=== PATIENT | female | born 2000 | race Caucasian/White ===

== ENCOUNTER 2021-01-09 12:29 | Emergency (ER) | payer OTHER, SELFPAY ==
--- NOTE | ~2021-01-09 | CT_ITS ---
EXAMINATION: CT soft tissue neck wo con DATE: 01/09/2021 14:28 INDICATION: Pharyngitis with difficulty swallowing TECHNIQUE: Computed tomography (CT) of the neck was performed without intravenous contrast. The dose- length product (DLP) was 263.78 mGy-cm. Automated exposure control and iterative reconstruction techn ique were employed. COMPARISON: None FINDINGS: The examination is limited by the absence of intravenous contrast. There is a 3.0 x 2.6 cm area of mixed attenuation in the left tonsillar region which could reflect phlegmon or abscess. There is mass effect on the airway which remains patent. There is an increase in number of nonpathological ly enlarged cervical lymph nodes. The visualized lung apices are clear. The osseous structures are un remarkable. IMPRESSION: 1. 3.0 x 2.6 cm area of mixed attenuation in the left tonsillar region which could reflect phlegmon o r abscess, examination limited by the absence of intravenous contrast. Reviewed, dictated and finalized at location B. IMPRESSION: 1. 3.0 x 2.6 cm area of mixed attenuation in the left tonsillar region which co uld reflect phlegmon or abscess, examination limited by the absence of intraven ous contrast.
[2021-01-09 12:54] VITALS: BP 120/77; PULSE 103; RESP 20; TEMP 38.1; O2SAT 98
--- NOTE | 2021-01-09 14:06 | ED.URI ---
HPI - URI/Sore Throat General Chief Complaint: Upper Respiratory Infection Stated Complaint: absess in throat Time Seen by Provider: 01/09/21 12:56 Source: patient and RN notes reviewed Mode of arrival: ambulatory Limitations: no limitations History of Present Illness HPI Narrative: increasing sore throat x 2 days. Pt is on Tx for pharyngitis. MD elicited complaint: fever, sore throat and nasal congestion Onset (ago): day(s) (2) Consistency: constant Severity: moderate Able to tolerate fluids by mouth: Yes Exacerbating factors: swallowing Relieving factors: nothing Associated symptoms: fever and sore throat Treatments prior to arrival: antibiotics Related Data Home Medications Medication Instructions Recorded Confirmed azithromycin 250 mg PO DAILY 01/09/21 01/09/21 Allergies Allergy/AdvReac Type Severity Reaction Status Date / Time Penicillins Allergy Mild unknown Verified 01/09/21 13:00 Review of Systems Review of Systems: All systems reviewed & are unremarkable except as noted in HPI and below Constitutional: Constitutional: Reports as per HPI and Reports fever(s) Eyes: Eyes: Reports as per HPI and Reports no additional eye complaints ENT: Reports system reviewed and no additional complaints, except as documented, Reports nasal congestion and Reports sore throat Cardiovascular: Cardiovascular: Reports as per HPI and Reports no additional cardiovascular complaints Respiratory: Respiratory: Reports as per HPI and Reports no additional respiratory complaints Gastrointestinal: Gastrointestinal: Reports as per HPI and Reports no additional gastrointestinal complaints Genitourinary: Genitourinary: Reports no additional female genitourinary complaints and Reports as per HPI Musculoskeletal: Musculoskeletal: Reports no additional musculoskeletal complaints and Reports as per HPI Integumentary/Breasts: Skin/Breast: Reports system reviewed and no additional complaints, except as docu and Reports as per HPI Neurologic: Reports system reviewed and no additional complaints, except as documented and Reports as per HPI Psychiatric: Psychiatric: Reports no additional psychiatric complaints and Reports as per HPI Endocrine: Endocrine: Reports no additional endocrine complaints and Reports as per HPI Hematologic/Lymphatic: Hematologic/Lymphatic: Reports no additional hematologic/lymphatic complaints and Reports as per HPI Allergic/Immunologic: Allergic/Immunologic: Reports no additional allergic/immunologic complaints and Reports as per HPI PMFSH Past Medical History Medical History History of psychiatric hospitalization Rash Suicide attempt by overdose Surgical History Surgical History H/O oral surgery by overdose Family History Family History Mother Healthy adult Father Healthy adult Grandparent Lung cancer Social History Social History Smoking packs per day: 0.5 Smoking cigarettes per day: 10.0 Years smoked: 3 Smoking pack-years: 1.50 Smoking status: Current every day smoker Alcohol intake: never Substance use: current Substance use type: marijuana Additional living arrangements comments: with mother Additional occupation/education comments: [employer] Gender identity (if verbalized by the patient): Female Spiritual care concerns: No Exam Const: General: no acute distress and alert Nutritional Appearance: well nourished Orientation/consciousness: patient oriented x3 Limitations: no limitations HENMT: Head: normal to inspection Ears: external ears normal and TM's normal bilaterally General nose exam: Normal external nose present and Normal nares present Face and sinus: normal facial exam Mouth: Yes lip normal and Yes moist mucous membra
[2021-01-09] MEDS: cefTRIAXone 1 GM VIAL IM (14:10)
[2021-01-09] MEDS: KETOROLAC (*BKC) 60 MG/2 ML VIAL IM (14:16)
[2021-01-09] MEDS: LIDOCAINE HCL 1% LOCAL INJ 20 ML VIAL (14:18)
[2021-01-09] MEDS: methylPREDNISolone SOD SUCC 125 MG VIAL IM (15:51)
[2021-01-09 16:31] VITALS: BP 115/65; PULSE 78; RESP 20; TEMP 37.3; O2SAT 99
== END 2021-01-09 16:34 | disposition home or self-care (01) ==
PROVIDERS: Emergency Provider Emergency Medicine
DX: J36 Peritonsillar abscess (principal); F17.200 Nicotine dependence, unspecified, uncomplicated
CPT/HCPCS: 70490; 96372; 99283; 99284; J0696; J1885; J2930

== ENCOUNTER 2022-02-02 03:58 | Emergency (ER) | payer OTHER, SELFPAY ==
--- NOTE | 2022-02-02 04:01 | ED.URI ---
HPI - URI/Sore Throat General Chief Complaint: Nausea/Vomiting/Diarrhea Stated Complaint: NAUSEA Time Seen by Provider: 02/02/22 04:00 Source: patient and RN notes reviewed Mode of arrival: ambulatory Limitations: no limitations History of Present Illness HPI Narrative: patient began yesterday with some upper respiratory symptoms cough nasal congestion. Thought she just had a head cold. Then this evening she began having vomiting. She thinks she may have been exposed to someone with COVID at her job. MD elicited complaint: cough and nasal congestion Onset (ago): day(s) (1) Consistency: intermittent Severity: moderate Description of mucous: clear Able to tolerate fluids by mouth: Yes Exacerbating factors: nothing Relieving factors: nothing Context: sick contacts Associated symptoms: myalgias, headache, nasal congestion, sore throat, cough, nausea and vomiting Treatments prior to arrival: none Related Data Allergies Allergy/AdvReac Type Severity Reaction Status Date / Time Penicillins Allergy Mild unknown Verified 02/05/22 07:03 Review of Systems Review of Systems: All systems reviewed & are unremarkable except as noted in HPI and below PMFSH Past Medical History Medical History History of psychiatric hospitalization Rash Suicide attempt by overdose Surgical History Surgical History H/O oral surgery by overdose Family History Family History Mother Healthy adult Father Healthy adult Grandparent Lung cancer Social History Social History Years smoked: 3 Smoking status: Current every day smoker Tobacco type: e-cigarettes/vaping Alcohol intake: never Substance use: current Substance use type: marijuana Additional living arrangements comments: with mother Additional occupation/education comments: [employer] Gender identity (if verbalized by the patient): Female Spiritual care concerns: No Exam Const: General: healthy appearing, no acute distress and alert Nutritional Appearance: well nourished and thin Orientation/consciousness: patient oriented x3 Limitations: no limitations Other: Female nurse in room during examination. HENMT: Head: normal to inspection Ears: external ears normal Eyes: Conjunctivae: conjunctivae normal Pupils: Equal, round and reactive pupils present EOM: EOMs intact bilaterally Neck: Neck: normal visual inspection Resp: Effort & Inspection: normal respiratory effort Auscultation: clear to auscultation bilaterally Cardio: Rate: regular rate Rhythm: regular rhythm GI: GI Palp: Yes Soft to palpation, No Tenderness to palpation present (GI) and No Guarding due to palpation present (GI) Auscultation: normal bowel sounds Back/Spine/Pelvis: Cervical Spine: cervical ROM normal Thoracic/Lumbar Spine: thoraco-lumbar ROM normal Skin: General skin exam: normal color Rashes: no rashes Neuro: General: patient oriented x3, moves all extremities, no focal motor deficits and CN's II-XI intact bilaterally Speech: normal speech Gait exam (Neuro): Normal gait present Extrem: General: normal to inspection and no clubbing, cyanosis or edema Psych: Mental Status: mental status grossly normal Affect: normal affect Attitude: cooperative Course Vital Signs Vital signs: Vital Signs Temperature 36.8 C 02/02/22 04:08 Pulse Rate 92 02/02/22 04:08 Respiratory Rate 20 02/02/22 04:08 Blood Pressure 127/71 02/02/22 04:08 Pulse Oximetry 100 02/02/22 04:08 Oxygen Delivery Room Air 02/02/22 04:08 Temperature 36.6 C 02/02/22 05:34 Pulse Rate 92 02/02/22 05:34 Respiratory Rate 20 02/02/22 05:34 Blood Pressure 120/66 02/02/22 05:34 Pulse Oximetry 100 02/02/22 05:34 Oxygen Delivery Room Air 02/02/22 05:34 MDM -
[2022-02-02 04:08] VITALS: BP 127/71; PULSE 92; RESP 20; TEMP 36.8; O2SAT 100
[2022-02-02 04:13] LABS: Basophils Absolute Auto 0.03 K/mm3 (0.00-0.10); Basophils Percent Auto 0.3 % (0.0-1.0); Eosinophils Absolute Auto 0.05 K/mm3 (0.02-0.50); Eosinophils Percent Auto 0.5 % (1.0-6.0); Hematocrit 35.8 % (35.0-49.0); Hemoglobin 11.7 g/dL (12.0-15.0); Immature Granulocyte Absolute 0.02 K/mm3 (0.00-0.00); Immature Granulocyte Percent A 0.2 % (0.0-0.0); Lymphocytes Absolute Auto 0.14 K/mm3 (1.10-4.50); Lymphocytes Percent Auto 1.5 % (18.0-42.0); Mean Corpuscular HGB Conc 32.7 g/dL (32.0-36.0); Mean Corpuscular Hemoglobin 27.9 pg (27.0-31.0); Mean Corpuscular Volume 85.2 fL (78.0-102.0); Mean Platelet Volume 9.1 fl (9.2-11.8); Monocytes Percent Auto 5.4 % (2.0-11.0); Neutrophils Absolute Auto 8.5 K/mm3 (1.7-7.2); Neutrophils Percent Auto 92.1 % (50.0-70.0); Platelet Count Result 281 K/mm3 (150-420); Red Cell Distribution Width 13.8 % (11.6-14.4); White Blood Count 9.3 K/mm3 (4.8-10.8)
[2022-02-02] MEDS: ONDANSETRON HCL ODT 4 MG TABLET PO (04:17)
[2022-02-02 04:28] LABS: Alanine Aminotransferase 16 U/L (14-59); Alkaline Phosphatase 67 U/L (46-116); Anion Gap 9 mmol/L (8-16); Aspartate Amino Transferase < 10 U/L (15-37); Bilirubin,Total 0.4 mg/dL (0.00-1.00); Blood Urea Nitrogen 7 mg/dL (7-18); Calcium 8.7 mg/dL (8.5-10.1); Carbon Dioxide 25 mmol/L (21-32); Chloride 105 mmol/L (98-108); Estimated CRCL calculation 91 ml/min; Estimated Glomerular Filt Rate > 60; Glucose 107 mg/dL (70-99); Osmolality Calculated 286 mOsm/kg (285-295); Potassium 3.7 mmol/L (3.5-5.1); Sodium 139 mmol/L (136-145); Total Protein 6.9 g/dL (6.4-8.2)
[2022-02-02 04:29] LABS: CRP < 0.2 mg/dL (0.0-0.9); Magnesium 1.5 mg/dL (1.8-2.4)
[2022-02-02 04:50] LABS: SARS-CoV-2 RNA PCR Negative (Negative)
[2022-02-02 05:05] VITALS: BP 118/70; PULSE 78; RESP 20; O2SAT 98
[2022-02-02 05:34] VITALS: BP 120/66; PULSE 92; RESP 20; TEMP 36.6; O2SAT 100
== END 2022-02-02 05:37 | disposition home or self-care (01) ==
PROVIDERS: Emergency Provider Emergency Medicine; PCP Family Medicine
DX: K52.9 Noninfective gastroenteritis and colitis, unspecified (principal); E83.42 Hypomagnesemia; Z20.822 Contact with and (suspected) exposure to COVID-19
CPT/HCPCS: 36415; 80053; 83735; 85025; 86140; 99283; A9270; C9803; U0003; U0005

== ENCOUNTER 2022-08-01 09:41 | Emergency (ER) | payer OTHER, SELFPAY ==
[2022-08-01 09:43] VITALS: BP 110/56; PULSE 77; RESP 16; TEMP 37.2; O2SAT 100
[2022-08-01 10:26] LABS: Basophils Absolute Auto 0.05 K/mm3 (0.00-0.10); Basophils Percent Auto 0.3 % (0.0-1.0); Eosinophils Absolute Auto 0.02 K/mm3 (0.02-0.50); Eosinophils Percent Auto 0.1 % (1.0-6.0); Hematocrit 37.8 % (35.0-49.0); Hemoglobin 12.5 g/dL (12.0-15.0); Immature Granulocyte Absolute 0.05 K/mm3 (0.00-0.00); Immature Granulocyte Percent A 0.3 % (0.0-0.0); Lymphocytes Absolute Auto 0.58 K/mm3 (1.10-4.50); Lymphocytes Percent Auto 3.9 % (18.0-42.0); Mean Corpuscular HGB Conc 33.1 g/dL (32.0-36.0); Mean Corpuscular Hemoglobin 28.5 pg (27.0-31.0); Mean Corpuscular Volume 86.3 fL (78.0-102.0); Monocytes Absolute Auto 1.03 K/mm3 (0.10-0.90); Monocytes Percent Auto 6.9 % (2.0-11.0); Neutrophils Absolute Auto 13.2 K/mm3 (1.7-7.2); Neutrophils Percent Auto 88.5 % (50.0-70.0); Platelet Count Result 298 K/mm3 (150-420); Red Blood Count 4.38 M/mm3 (4.20-5.40); Red Cell Distribution Width 13.4 % (11.6-14.4); White Blood Count 14.9 K/mm3 (4.8-10.8)
[2022-08-01 10:42] LABS: Alanine Aminotransferase 16 U/L (14-59); Albumin Level 3.9 g/dL (3.4-5.0); Alkaline Phosphatase 75 U/L (46-116); Anion Gap 10 mmol/L (8-16); Aspartate Amino Transferase < 10 U/L (15-37); Bilirubin,Total 0.6 mg/dL (0.00-1.00); Blood Urea Nitrogen 4 mg/dL (7-18); Carbon Dioxide 26 mmol/L (21-32); Chloride 101 mmol/L (98-108); Estimated Glomerular Filt Rate > 60; Glucose 96 mg/dL (70-99); Osmolality Calculated 280 mOsm/kg (285-295); Sodium 137 mmol/L (136-145); Total Protein 7.4 g/dL (6.4-8.2)
[2022-08-01] MEDS: ONDANSETRON INJ 4 MG/2 ML VIAL IV PUSH (10:56)
[2022-08-01] MEDS: SODIUM CHLORIDE 0.9% IV 1,000 ML 999 ML IV CONT (10:58)
--- NOTE | 2022-08-01 12:14 | PC.NURSE ---
patient ambulatory to bathroom at this time.
[2022-08-01 12:23] LABS: Add Urine Microscopic? YES; Appearance Urine Clear (Clear); Bilirubin Urine Negative (Negative); Blood Urine Negative (Negative); Color Urine Light Yellow (Yellow); Glucose Urine UA Negative (Negative); Ketones Urine 3+ (Negative); Leukocyte Esterase Ur 1+ LEU/UL (Negative); Nitrate Urine Negative (Negative); Protein Urine Negative (Negative); Specific Grav Ur 1.025 (1.010-1.020); Urobilinogen Urine 0.2 mg/dL (0.2-1.0); pH Urine 5.5 (5.0-8.0)
[2022-08-01 12:30] LABS: Bacteria Urine Trace /hpf; Mucus Urine Few /lpf; RBC Urine None seen /hpf (0-2); Squamous Epithelial Cell Urine Moderate /hpf (Few)
--- NOTE | 2022-08-01 12:43 | ED.NAVMDI ---
HPI - Nausea/Vomiting/Diarrhea General Chief complaint: Nausea/Vomiting/Diarrhea Stated complaint: vomiting, 8wks preg Time Seen by Provider: 08/01/22 09:42 Source: patient and family Mode of arrival: ambulatory Limitations: no limitations History of Present Illness HPI Narrative: patient presents with nausea vomiting and a few episodes of diarrhea with no fever chills no flank pain no chest pain no shortness of breaths for the past 2 days patient is 8 weeks and there is no dysuria no hematuria no fever chills. MD elicited complaint: nausea and vomiting Pain consistency: intermittent Severity: mild Related Data Allergies Allergy/AdvReac Type Severity Reaction Status Date / Time No Known Allergies Allergy Verified 08/01/22 09:47 Review of Systems Review of Systems: All systems reviewed & are unremarkable except as noted in HPI and below PMFSH Past Medical History Medical History History of psychiatric hospitalization Rash Suicide attempt by overdose Surgical History Surgical History H/O oral surgery by overdose Family History Family History Mother Healthy adult Father Healthy adult Grandparent Lung cancer Social History Social History Years smoked: 3 Smoking status: Current every day smoker Tobacco type: e-cigarettes/vaping Alcohol intake: never Substance use: current Substance use type: marijuana Living arrangements: with family Additional living arrangements comments: with mother Occupation/Education: occupation Additional occupation/education comments: [employer] Gender identity (if verbalized by the patient): Female Spiritual care concerns: No Exam Const: General: healthy appearing Nutritional Appearance: well nourished Orientation/consciousness: patient oriented x3 Limitations: no limitations HENMT: Head: normal to inspection Ears: external ears normal Face/Nose/Sinus: Normal external nose present Mouth: Yes Normal oral and palatal mucosa present Eyes: Conjunctivae: conjunctivae normal Pupils: Equal, round and reactive pupils present EOM: EOMs intact bilaterally Neck: Neck: normal visual inspection Chest: Chest palpation & inspection: normal inspection of the chest Resp: Effort & Inspection: normal respiratory effort Cardio: Rate: regular rate Rhythm: regular rhythm GI: GI Palp: Yes Soft to palpation : General: Yes bladder normal to palpation External Female Exam: normal external appearance Urinary Catheter: Urinary Catheter: patent and draining Skin: General skin exam: normal color Rashes: no rashes Wounds: no wounds Neuro: General: patient oriented x3 Cranial nerves: Yes Nystagmus not present Speech: normal speech Extrem: General: normal to inspection Psych: Mental Status: mental status grossly normal Affect: normal affect Course Course Emergency Course: Patient's symptoms have improved with IV fluids and Zofran, [place] [id number] and she has a positive urinary tract analysis of her UTI. Vital Signs Vital signs: Vital Signs Temperature 37.2 C 08/01/22 09:43 Pulse Rate 77 08/01/22 09:43 Respiratory Rate 16 08/01/22 09:43 Blood Pressure 110/56 L 08/01/22 09:43 Pulse Oximetry 100 08/01/22 09:43 Oxygen Delivery Room Air 08/01/22 09:43 Temperature 37.2 C 08/01/22 09:43 Pulse Rate 77 08/01/22 09:43 Respiratory Rate 16 08/01/22 09:43 Blood Pressure 110/56 L 08/01/22 09:43 Pulse Oximetry 100 08/01/22 09:43 Oxygen Delivery Room Air 08/01/22 09:43 MDM - Nausea/Vomiting/Diarrhea Lab Data 08/01/22 10:21 08/01/22 10:21 Labs: Lab Results 08/01/22 08/01/22 08/01/22 Range/Units 10:21 10:21 12:15
--- NOTE | 2022-08-01 12:59 | PC.NURSE ---
Per dr. sevilla prescription is to be for 7 days not 10 days for the amoxicillin. Rn called to pharmacy and prescription of amoxicillin 500mg 1 tablet po TID x7 days #21 0 refill called in and other script canceled. left on voicemail pharmacy is closed for lunch.
[2022-08-01 13:08] VITALS: BP 105/67; PULSE 82; RESP 16; TEMP 36.8; O2SAT 100
--- NOTE | 2022-08-03 12:47 | PC.NURSE ---
final urine culture report reviewed. no growth . no change in pt plan of care.
== END 2022-08-01 13:12 | disposition home or self-care (01) ==
PROVIDERS: Emergency Provider Emergency Medicine; PCP Family Medicine
DX: O23.11 Infections of bladder in pregnancy, first trimester (principal); N30.00 Acute cystitis without hematuria; O99.331 Smoking (tobacco) complicating pregnancy, first trimester; F17.290 Nicotine dependence, other tobacco product, uncomplicated; Z3A.08 8 weeks gestation of pregnancy
CPT/HCPCS: 36415; 80053; 81001; 85025; 87086; 96361; 96374; 99284; J2405; J7030

== ENCOUNTER 2022-08-20 04:10 | Emergency (ER) | payer OTHER, SELFPAY ==
[2022-08-20 04:18] VITALS: BP 117/71; PULSE 90; RESP 20; TEMP 37.1; O2SAT 99
[2022-08-20] MEDS: SODIUM CHLORIDE 0.9% IV 1,000 ML 999 ML IV CONT (04:30)
--- NOTE | 2022-08-20 04:32 | ED.GENADULT ---
HPI - General Adult General Chief complaint: Nausea/Vomiting/Diarrhea Stated complaint: Vomiting History of Present Illness HPI narrative: The patient is a 22-year-old woman who is otherwise healthy who is currently , at 11 weeks. For the last 1-2 days, the patient has had persistent nausea and vomiting consistent with morning sickness. She had approximately 15 episodes of emesis in the last 24 hours. She took her last Zofran tablet recently and has run out of those medications. No abdominal pain or cramps. No vaginal discharge. No urinary symptoms such as dysuria urgency or frequency or hematuria. No URI symptoms such as cough rhinorrhea nasal congestion or sore throat. Feels her mouth is dry. No sick contacts. No fevers or chills or diaphoresis. Related Data Allergies Allergy/AdvReac Type Severity Reaction Status Date / Time No Known Allergies Allergy Verified 08/01/22 09:47 Review of Systems Review of Systems: All systems reviewed & are unremarkable except as noted in HPI and below Constitutional: Constitutional: Reports as per HPI, Reports no additional constitutional complaints, Denies chills, Denies excessive sweating, Denies fatigue, Denies fever(s), Denies headache(s) and Reports weakness ( Generalized) Eyes: Eyes: Reports as per HPI, Reports no additional eye complaints, Denies change in vision and Denies photophobia ENT: Reports system reviewed and no additional complaints, except as documented, Reports as per HPI, Denies dysphagia, Denies vertigo, Denies dizziness, Denies headache(s), Denies lip swelling, Denies nasal congestion, Denies sore throat, Denies throat swelling and Denies tongue swelling Cardiovascular: Cardiovascular: Reports as per HPI, Reports no additional cardiovascular complaints, Denies chest pain, Denies syncope, Denies rapid heart rate and Denies dyspnea Respiratory: Respiratory: Reports as per HPI, Reports no additional respiratory complaints, Denies chest congestion, Denies cough, Denies dyspnea and Denies wheezing Gastrointestinal: Gastrointestinal: Reports as per HPI, Reports no additional gastrointestinal complaints, Denies abdominal pain, Denies constipation, Denies dysphagia, Denies diarrhea, Reports nausea and Reports vomiting Genitourinary: Genitourinary: Reports as per HPI, Denies hematuria, Denies urinary frequency, Denies dysuria, Denies urinary incontinence and Denies urinary urgency Musculoskeletal: Musculoskeletal: Reports no additional musculoskeletal complaints, Denies back pain, Denies myalgias, Denies arthralgias, Denies joint swelling and Denies numbness Integumentary/Breasts: Skin/Breast: Reports system reviewed and no additional complaints, except as docu, Denies pruritus, Denies erythema, Denies rash and Denies skin ulcer Neurologic: Reports system reviewed and no additional complaints, except as documented, Reports as per HPI, Denies confusion, Denies vertigo, Denies dizziness, Denies syncope, Denies headache(s), Denies focal weakness, Denies numbness and Reports weakness ( generalized weakness, no focal weakness) Psychiatric: Psychiatric: Reports as per HPI, Denies anxiety, Denies confusion, Denies depression, Denies homicidal ideation and Denies suicidal ideation Endocrine: Endocrine: Reports no additional endocrine complaints, Denies excessive sweating, Denies fatigue, Denies polydipsia and Denies polyuria Hematologic/Lymphatic: Hematologic/Lymphatic: Reports no additional hematologic/lymphatic complaints, Denies easy bleeding and Denies easy bruising Allergic/Immunologic: Allergic/Immunologic: Reports no additional allergic/immunologic complaints, Denies lip swelling, Denies throat swelling, Denies tongue swelling and Denies wheezing [facility] Past Medical History Medical History History of psychiatric hospitalization Rash Suicide attempt by overdose Surgical History Surgical History (Reviewed 08/28/22 @ 20:
[2022-08-20] MEDS: ONDANSETRON INJ 4 MG/2 ML VIAL IV PUSH (04:35)
--- NOTE | 2022-08-20 04:35 | PC.NURSE ---
Per protocol, Pt offered HIV blood draw and info given. Pt declined due to seeing her [employer] Dr and having done in her office. Paperwork signed on decline.
[2022-08-20 05:15] VITALS: BP 105/61; PULSE 87; RESP 18; TEMP 36.8; O2SAT 100
== END 2022-08-20 05:20 | disposition home or self-care (01) ==
PROVIDERS: Emergency Provider Emergency Medicine; PCP Family Medicine
DX: O21.0 Mild hyperemesis gravidarum (principal); O99.331 Smoking (tobacco) complicating pregnancy, first trimester; F17.290 Nicotine dependence, other tobacco product, uncomplicated; Z3A.11 11 weeks gestation of pregnancy
CPT/HCPCS: 96361; 96374; 99284; J2405; J7030

== ENCOUNTER 2022-08-28 19:47 | Emergency (ER) | payer OTHER, SELFPAY ==
[2022-08-28 19:54] VITALS: BP 122/76; PULSE 82; RESP 20; TEMP 36.7; O2SAT 99
--- NOTE | 2022-08-28 20:14 | ED.NAVMDI ---
HPI - Nausea/Vomiting/Diarrhea General Chief complaint: Nausea/Vomiting/Diarrhea Stated complaint: 12 weeks been sick vomiting Source: patient Mode of arrival: ambulatory History of Present Illness HPI Narrative: 22-year-old female primigravida, normal intrauterine gestation on ultrasound, 12 weeks with a history of hyperemesis gravidarum presents to the ER with -- multiple episodes of nausea and vomiting. She has had close to 20 episodes of vomiting today. No vomiting or diarrhea. The patient was seen in the ER 1 week ago. The patient is on Zofran. -- Normal urine output. MD elicited complaint: nausea and vomiting Onset (ago): day(s) Description of vomiting: watery and bilious Associated nausea: Yes Associated abdominal pain: No Location of pain: none Related Data Allergies Allergy/AdvReac Type Severity Reaction Status Date / Time No Known Allergies Allergy Verified 08/01/22 09:47 Review of Systems Review of Systems: All systems reviewed & are unremarkable except as noted in HPI and below Constitutional: Constitutional: Reports as per HPI and Reports no additional constitutional complaints Eyes: Eyes: Reports as per HPI and Reports no additional eye complaints ENT: Reports system reviewed and no additional complaints, except as documented and Reports as per HPI Cardiovascular: Cardiovascular: Reports as per HPI and Reports no additional cardiovascular complaints Respiratory: Respiratory: Reports as per HPI and Reports no additional respiratory complaints Gastrointestinal: Gastrointestinal: Reports as per HPI, Reports no additional gastrointestinal complaints, Reports nausea and Reports vomiting Genitourinary: Genitourinary: Reports no additional female genitourinary complaints and Reports as per HPI Comments: No vaginal discharge. Musculoskeletal: Musculoskeletal: Reports no additional musculoskeletal complaints and Reports as per HPI Integumentary/Breasts: Skin/Breast: Reports system reviewed and no additional complaints, except as docu and Reports as per HPI Neurologic: Reports system reviewed and no additional complaints, except as documented and Reports as per HPI Psychiatric: Psychiatric: Reports no additional psychiatric complaints and Reports as per HPI Endocrine: Endocrine: Reports no additional endocrine complaints and Reports as per HPI Hematologic/Lymphatic: Hematologic/Lymphatic: Reports no additional hematologic/lymphatic complaints and Reports as per HPI Allergic/Immunologic: Allergic/Immunologic: Reports no additional allergic/immunologic complaints and Reports as per HPI PMF Past Medical History Medical History History of psychiatric hospitalization Rash Suicide attempt by overdose Surgical History Surgical History H/O oral surgery by overdose Family History Family History Mother Healthy adult Father Healthy adult Grandparent Lung cancer Social History Social History Years smoked: 3 Smoking status: Current every day smoker Tobacco type: e-cigarettes/vaping Alcohol intake: never Substance use: current Substance use type: marijuana Living arrangements: with family Additional living arrangements comments: with mother Occupation/Education: occupation Additional occupation/education comments: [employer] Gender identity (if verbalized by the patient): Female Spiritual care concerns: No Exam Const: General: no acute distress Orientation/consciousness: patient oriented x3 Limitations: no limitations HENMT: Head: normal to inspection Ears: external ears normal Face/Nose/Sinus: Normal external nose present Face and sinus: normal facial exam Mouth: Yes Normal oral and palatal mucosa present Throat: posterior
[2022-08-28] MEDS: LACTATED RINGERS 1,000 ML 999 ML IV CONT (20:23)
[2022-08-28 20:24] LABS: Basophils Absolute Auto 0.06 K/mm3 (0.00-0.10); Basophils Percent Auto 0.4 % (0.0-1.0); Eosinophils Absolute Auto 0.03 K/mm3 (0.02-0.50); Eosinophils Percent Auto 0.2 % (1.0-6.0); Hematocrit 35.6 % (35.0-49.0); Hemoglobin 12.3 g/dL (12.0-15.0); Immature Granulocyte Absolute 0.09 K/mm3 (0.00-0.00); Immature Granulocyte Percent A 0.5 % (0.0-0.0); Lymphocytes Absolute Auto 1.61 K/mm3 (1.10-4.50); Lymphocytes Percent Auto 9.8 % (18.0-42.0); Mean Corpuscular HGB Conc 34.6 g/dL (32.0-36.0); Mean Corpuscular Hemoglobin 29.6 pg (27.0-31.0); Mean Corpuscular Volume 85.6 fL (78.0-102.0); Mean Platelet Volume 9.3 fl (9.2-11.8); Monocytes Percent Auto 6.1 % (2.0-11.0); Neutrophils Absolute Auto 13.7 K/mm3 (1.7-7.2); Platelet Count Result 310 K/mm3 (150-420); Red Blood Count 4.16 M/mm3 (4.20-5.40); Red Cell Distribution Width 13.7 % (11.6-14.4); White Blood Count 16.5 K/mm3 (4.8-10.8)
[2022-08-28 20:26] LABS: Appearance Urine Clear (Clear); Bilirubin Urine Negative (Negative); Blood Urine Negative (Negative); Color Urine Light Yellow (Yellow); Glucose Urine UA Negative (Negative); Ketones Urine 3+ (Negative); Leukocyte Esterase Ur Trace LEU/UL (Negative); Nitrate Urine Negative (Negative); Protein Urine Negative (Negative); Specific Grav Ur 1.025 (1.010-1.020); Urobilinogen Urine 0.2 mg/dL (0.2-1.0)
[2022-08-28 20:32] LABS: Add Urine Microscopic? YES; Amorphous Sediment Urine Few; Bacteria Urine Trace /hpf; RBC Urine 0-2 /hpf (0-2); Squamous Epithelial Cell Urine Moderate /hpf (Few); WBC Urine 0-3 /hpf (0-3)
[2022-08-28 21:03] LABS: Alanine Aminotransferase 25 U/L (14-59); Albumin Level 3.4 g/dL (3.4-5.0); Alkaline Phosphatase 60 U/L (46-116); Anion Gap 10 mmol/L (8-16); Aspartate Amino Transferase 19 U/L (15-37); Bilirubin,Total 0.5 mg/dL (0.00-1.00); Blood Urea Nitrogen 4 mg/dL (7-18); Calcium 8.8 mg/dL (8.5-10.1); Carbon Dioxide 24 mmol/L (21-32); Chloride 101 mmol/L (98-108); Estimated CRCL calculation 129 ml/min; Estimated Glomerular Filt Rate > 60; Glucose 97 mg/dL (70-99); Osmolality Calculated 276 mOsm/kg (285-295); Potassium 3.7 mmol/L (3.5-5.1); Sodium 135 mmol/L (136-145)
[2022-08-28 21:04] LABS: Thyroid Stimulating Hormone 0.76 uIU/mL (0.36-3.74)
[2022-08-28 21:05] LABS: Lipase 22 U/L (16-77); Magnesium 1.6 mg/dL (1.8-2.4); Phosphorus 3.8 mg/dL (3.4-5.5)
--- NOTE | 2022-08-28 21:10 | PC.NURSE ---
pt refused HIV screening. Pt signed refusal form. refusal form placed with chart.
[2022-08-28] MEDS: MAGNESIUM SULF 2 GM/WATER 50ML 2 GM/50 ML BAG IVPB (21:17)
[2022-08-28 21:25] VITALS: BP 115/88; PULSE 77; RESP 18; TEMP 36.8; O2SAT 100
== END 2022-08-28 21:36 | disposition home or self-care (01) ==
PROVIDERS: Emergency Provider Internal Medicine Critical Care Medicine; PCP Family Medicine
DX: O21.0 Mild hyperemesis gravidarum (principal); O26.891 Other specified pregnancy related conditions, first trimester; E83.42 Hypomagnesemia; O99.331 Smoking (tobacco) complicating pregnancy, first trimester; F17.290 Nicotine dependence, other tobacco product, uncomplicated; Z3A.12 12 weeks gestation of pregnancy
CPT/HCPCS: 36415; 80053; 81001; 83690; 83735; 84100; 84443; 84702; 85025; 96361; 96365; 99284; J3475; J7120

== ENCOUNTER 2022-10-26 16:16 | Emergency (ER) | payer OTHER, SELFPAY ==
[2022-10-26] VITALS (7 sets, daily range): BP systolic 125–131; BP diastolic 71–83; PULSE 72–112; RESP 16–18; TEMP 36.4–36.8; O2SAT 93–100
--- NOTE | ~2022-10-26 | XR_ITS ---
EXAMINATION: XR chest 1V portable DATE: 10/26/2022 17:00 INDICATION: Right lung wheezing. Cough. Vomiting. TECHNIQUE: A single frontal view of the chest was obtained. COMPARISON: None. FINDINGS: The chest demonstrates clear lungs without pneumonia, pleural effusion, or pneumothorax. Th e heart size is normal. IMPRESSION: 1. No acute cardiopulmonary disease. Reviewed, dictated and finalized at location E.
--- NOTE | 2022-10-26 16:43 | ED.GENADULT ---
HPI - General Adult General Chief complaint: Nausea/Vomiting/Diarrhea Stated complaint: cough/congestion/vomiting 21 wks History of Present Illness HPI narrative: This is a 22-year-old female presenting ED with chief complaint of nausea and vomiting x1 days. Over last 24 hours patient has developed nasal congestion, sore throat cough, and nausea and vomiting. She has been taking Zofran ODT with no relief. She denies fever chills chest pain or difficulty breathing. Patient's fiance has similar symptoms. Patient has had significant issues with vomiting during this although it is improved in the 2nd trimester. Patient denies abdominal pain, vaginal bleeding or discharge. She has not felt the baby move yet but has an anterior placenta. Related Data Allergies Allergy/AdvReac Type Severity Reaction Status Date / Time No Known Allergies Allergy Verified 10/26/22 16:31 [facility] Past Medical History Medical History History of psychiatric hospitalization Rash Suicide attempt by overdose Surgical History Surgical History H/O oral surgery by overdose Family History Family History Mother Healthy adult Father Healthy adult Grandparent Lung cancer Social History Social History Years smoked: 3 Smoking status: Current every day smoker Tobacco type: e-cigarettes/vaping Alcohol intake: never Substance use: current Substance use type: marijuana Living arrangements: with family Additional living arrangements comments: with mother Occupation/Education: occupation Additional occupation/education comments: [employer] Gender identity (if verbalized by the patient): Female Spiritual care concerns: No Exam Narrative: APPEARANCE: No apparent distress. Patient is persistently coughing Head: posterior oropharynx is erythematous with exudates EYES: EOMI, NOSE: Atraumatic NECK: Trachea midline RESPIRATORY: No increased rate of breathing, wheezing on the right lung CARDIOVASCULAR: tachycardic ABDOMINAL: gravid uterus palpable at the umbilicus, soft nontender no guarding rebound MUSCULOSKELETAl: No obvious deformities NEURO: Alert. Moving 4/4 extremities SKIN:: Warm, dry. Normal color PSYCHIATRIC: Normal affect Course Vital Signs Vital signs: Vital Signs Temperature 97.5 F L 10/26/22 16:16 Pulse Rate 112 H 10/26/22 16:16 Respiratory Rate 18 10/26/22 16:16 Blood Pressure 128/71 10/26/22 16:16 Pulse Oximetry 96 10/26/22 16:16 Oxygen Delivery Room Air 10/26/22 16:16 Temperature 97.5 F L 10/26/22 16:16 Pulse Rate 112 H 10/26/22 16:16 Respiratory Rate 18 10/26/22 16:16 Blood Pressure 128/71 10/26/22 16:16 Pulse Oximetry 96 10/26/22 16:16 Oxygen Delivery Room Air 10/26/22 16:16 Medical Decision Making MDM Narrative Medical decision making narrative: -Presentation: 22-year-old female presenting with cold symptoms, nausea vomiting and wheezing. Patient will be given IV fluids, Zofran, Tylenol and a breathing treatment. 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 Viral swabs and strep throat were negative. Dx tests considered but not ordered: -Procedures: -Interventions: DuoNeb nebulizer, Tylenol Zofran, 2 L normal saline -> 10 m
[2022-10-26] MEDS: IPRATROPIUM 0.5 MG/ALBUTEROL SULFATE 2.5 MG AMPUL.NEB 3 ML INHALATION (16:55)
[2022-10-26] MEDS: ONDANSETRON INJ 4 MG/2 ML VIAL 8 MG IV PUSH (17:00)
[2022-10-26] MEDS: SODIUM CHLORIDE 0.9% IV 2,000 ML 999 ML IV CONT (17:00)
[2022-10-26] MEDS: ACETAMINOPHEN 325 MG TABLET 650 MG PO (17:03)
[2022-10-26 17:46] LABS: Strep Group A RT-PCR NOT DETECTED (Negative)
[2022-10-26 17:54] LABS: Influenza A QL RT-PCR Negative (Negative); Influenza B QL RT-PCR Negative (Negative); RSV RNA, RT-PCR Negative (Negative); SARS-CoV-2 RNA PCR Negative (Negative)
[2022-10-26] MEDS: METOCLOPRAMIDE HCL INJ 10 MG/2 ML VIAL IV PUSH (18:43)
== END 2022-10-26 18:57 | disposition home or self-care (01) ==
PROVIDERS: Emergency Provider Emergency Medicine; PCP Family Medicine
DX: O99.512 Diseases of the respiratory system complicating pregnancy, second trimester (principal); B34.9 Viral infection, unspecified; J40 Bronchitis, not specified as acute or chronic; O26.892 Other specified pregnancy related conditions, second trimester; R11.2 Nausea with vomiting, unspecified; O99.332 Smoking (tobacco) complicating pregnancy, second trimester; F17.290 Nicotine dependence, other tobacco product, uncomplicated; Z3A.21 21 weeks gestation of pregnancy; Z20.822 Contact with and (suspected) exposure to COVID-19
CPT/HCPCS: 71045; 87637; 87651; 96361; 96374; 96375; 99284; A9270; J1100; J2405; J2765; J7030

== ENCOUNTER 2022-12-25 20:25 | Emergency (ER) | payer OTHER, SELFPAY ==
[2022-12-25 20:29] VITALS: BP 120/76; PULSE 88; RESP 16; TEMP 37.7; O2SAT 99
--- NOTE | 2022-12-25 20:32 | ED.DENTAL ---
HPI - Dental/Oral General Chief complaint: Dental/Oral Stated complaint: tooth ache Time Seen by Provider: 12/25/22 20:32 Source: patient Mode of arrival: ambulatory Limitations: no limitations History of Present Illness HPI Narrative: 22-year-old female, 30 weeks presents to the ER with left upper jaw pain. her pain is chronic but has gotten worse over the past 1 week. No fever or chills. MD Complaint: tooth pain Location: Tooth # (12) Onset (ago): unknown ( Extensive dental caries.) Duration: constant Severity: moderate Relieving factors: nothing Exacerbating factors: nothing Context: history of dental caries Treatment prior to arrival: none Related Data Allergies Allergy/AdvReac Type Severity Reaction Status Date / Time No Known Allergies Allergy Verified 12/25/22 20:27 Review of Systems Review of Systems: All systems reviewed & are unremarkable except as noted in HPI and below Constitutional: Constitutional: Reports as per HPI and Reports no additional constitutional complaints Eyes: Eyes: Reports as per HPI and Reports no additional eye complaints ENT: Reports system reviewed and no additional complaints, except as documented and Reports as per HPI Cardiovascular: Cardiovascular: Reports as per HPI and Reports no additional cardiovascular complaints Respiratory: Respiratory: Reports as per HPI and Reports no additional respiratory complaints Gastrointestinal: Gastrointestinal: Reports as per HPI and Reports no additional gastrointestinal complaints Genitourinary: Genitourinary: Reports no additional female genitourinary complaints and Reports as per HPI Comments: Thirty weeks . Her ultrasounds of the uterus the fetus have been unremarkable to date Musculoskeletal: Musculoskeletal: Reports no additional musculoskeletal complaints and Reports as per HPI Integumentary/Breasts: Skin/Breast: Reports system reviewed and no additional complaints, except as docu and Reports as per HPI Neurologic: Reports system reviewed and no additional complaints, except as documented and Reports as per HPI Psychiatric: Psychiatric: Reports no additional psychiatric complaints and Reports as per HPI Endocrine: Endocrine: Reports no additional endocrine complaints and Reports as per HPI Hematologic/Lymphatic: Hematologic/Lymphatic: Reports no additional hematologic/lymphatic complaints and Reports as per HPI Allergic/Immunologic: Allergic/Immunologic: Reports no additional allergic/immunologic complaints and Reports as per HPI PMFSH Past Medical History Medical History History of psychiatric hospitalization Rash Suicide attempt by overdose Surgical History Surgical History H/O oral surgery by overdose Family History Family History Mother Healthy adult Father Healthy adult Grandparent Lung cancer Social History Social History Years smoked: 3 Smoking status: Current every day smoker Tobacco type: e-cigarettes/vaping Alcohol intake: never Substance use: current Substance use type: marijuana Living arrangements: with family Additional living arrangements comments: with mother Occupation/Education: occupation Additional occupation/education comments: [employer] Gender identity (if verbalized by the patient): Female Spiritual care concerns: No Exam Const: General: no acute distress Nutritional Appearance: well nourished Orientation/consciousness: patient oriented x3 Limitations: no limitations HENMT: Head: normal to inspection Ears: external ears normal Face/Nose/Sinus: Normal external nose present Face and sinus: normal facial exam Mouth: Yes Normal oral and palatal mucosa present and Yes Abnormal oral and palatal mucosa present (
[2022-12-25] MEDS: AMOXICILLIN 500 MG CAPSULE PO (21:26)
[2022-12-25] MEDS: HYDROcodone/acetaminophen (*CRX) 5-325 MG TABLET 1 TAB PO (21:27)
== END 2022-12-25 21:05 | disposition home or self-care (01) ==
PROVIDERS: Emergency Provider Internal Medicine Critical Care Medicine; PCP Family Medicine
DX: O26.893 Other specified pregnancy related conditions, third trimester (principal); K02.9 Dental caries, unspecified; K08.89 Other specified disorders of teeth and supporting structures; O99.333 Smoking (tobacco) complicating pregnancy, third trimester; F17.290 Nicotine dependence, other tobacco product, uncomplicated; Z3A.30 30 weeks gestation of pregnancy
CPT/HCPCS: 99283; A9270

== ENCOUNTER 2023-02-28 01:38 | Inpatient (IN) | payer OTHER, SELFPAY ==
[2023-02-28] VITALS (231 sets, daily range): BP systolic 111–171; BP diastolic 62–147; PULSE 64–163; RESP 16–18; TEMP 36.5–37.5; O2SAT 93–100; BMI 30.2
--- NOTE | 2023-02-28 03:39 | LDADM ---
This patient, Marita Shell, was admitted to Labor/Delivery/Recovery [facility] on 02/28/23 at 01:38. Plans for labor, pain management and were discussed with patient. Patient/family oriented to hospital policies and general routines including ID bracelet, bed and alarms, visiting hours, pain management, procedures, bathroom and other care routines, personal items, smoking policy, room service/diet and guest tray routines, infant security routines, and visiting hours. Patient/Family are encouraged to report perceived risks to care and to ask questions if they do not understand what they are told or what they should do. See OBIX for further documentation.
[2023-02-28] MEDS: LACTATED RINGERS 1,000 ML 125 ML IV CONT ×3 (03:40→12:31)
[2023-02-28 03:47] LABS: Basophils Absolute Auto 0.1 K/mm3 (0.0-0.1); Basophils Percent Auto 0.5 % (0.2-1.2); Eosinophils Absolute Auto 0.1 K/mm3 (0-0.3); Eosinophils Percent Auto 0.5 % (0-4.4); Hematocrit 34.7 % (37.0-47.0); Hemoglobin 11.5 g/dL (12.0-15.0); Immature Granulocyte Absolute 0.13 K/mm3 (0.00-0.031); Immature Granulocyte Percent A 0.8 % (0-0.5); Lymphocytes Absolute Auto 2.07 K/mm3 (0.9-3.2); Lymphocytes Percent Auto 12.6 % (18.3-44.2); Mean Corpuscular HGB Conc 33.1 g/dl (32-36); Mean Corpuscular Hemoglobin 27.6 pg (26-34); Mean Corpuscular Volume 83.4 fl (80-100); Mean Platelet Volume 10.8 fl (7.4-10.4); Monocytes Absolute Auto 1.2 K/mm3 (0.1-0.6); Monocytes Percent Auto 7.4 % (2.6-8.5); Neutrophils Absolute Auto 12.8 K/mm3 (1.3-6.7); Neutrophils Percent Auto 78.2 % (45.5-73.1); Platelet Count Result 309 k/mm3 (150-375); Red Blood Count 4.16 M/mm3 (4.2-5.4); Red Cell Distribution Width 16.1 % (11.5-14.5); White Blood Count 16.4 K/mm3 (4.5-10.0)
--- NOTE | 2023-02-28 05:17 | WPDANESEPP ---
Anes - Eval Pre Procedure Procedure: labor epidural Date/Time: 02/28/23 05:17 Surgeon: leandro Preop Diagnosis: pain during labor Pre Op Diagnosis: Contractions Patient Data Age: 23 Gender: F Height: 1.57 m Weight: 75 kg Last Vital Signs Temp 37.2 C 02/28/23 04:46 Pulse 93 02/28/23 05:16 BP 126/81 02/28/23 05:16 Pulse Ox 100 02/28/23 05:14 O2 Del Method Room Air 02/28/23 03:37 Allergies Allergy/AdvReac Type Severity Reaction Status Date / Time Penicillins Allergy Unknown Verified 02/10/23 12:32 Home Medications Medication Instructions Recorded Confirmed Type ondansetron 4 mg disintegrating 4 mg PO Q6H PRN nausea and 08/20/22 02/28/23 Rx tablet vomiting #30 tabs vit#24-iron amino acid 1 tablet PO DAILY 02/10/23 02/28/23 History chelat-folic acid 30 mg-975 mcg tablet Laboratory Tests 02/28/23 03:42 WBC 16.4 H K/mm3 (4.5-10.0) RBC 4.16 L M/mm3 (4.2-5.4) Hgb 11.5 L g/dL (12.0-15.0) Hct 34.7 L % (37.0-47.0) MCV 83.4 fl (80-100) MCH 27.6 pg (26-34) MCHC 33.1 g/dl (32-36) RDW 16.1 H % (11.5-14.5) Plt Count 309 k/mm3 (150-375) MPV 10.8 H fl (7.4-10.4) Immature Gran % (Auto) 0.8 H % (0-0.5) Neut % (Auto) 78.2 H % (45.5-73.1) Lymph % (Auto) 12.6 L % (18.3-44.2) Carlton % (Auto) 7.4 % (2.6-8.5) Eos % (Auto) 0.5 % (0-4.4) Baso % (Auto) 0.5 % (0.2-1.2) Lymph # (Auto) 2.07 K/mm3 (0.9-3.2) Carlton # (Auto) 1.2 H K/mm3 (0.1-0.6) Eos # (Auto) 0.1 K/mm3 (0-0.3) Baso # (Auto) 0.1 K/mm3 (0.0-0.1) Abs Immat Gran (auto) 0.13 H K/mm3 (0.00-0.031) Absolute Neuts (auto) 12.8 H K/mm3 (1.3-6.7) Absolute Nucleated RBC 0.0 K/mm3 (0.0-0.012) Nucleated RBC % 0.0 % (0.0-0.2) RPR Pending Blood Type O Positive Antibody Screen Negative Patient hx anesthesia problems: none Family hx anesthesia problems: none Results Review: All pre-operative results and documents have been reviewed as part of the pre-operative evaluation. [facility] Past Medical History Medical History History of psychiatric hospitalization Rash Suicide attempt by overdose Surgical History Surgical History H/O oral surgery by overdose Family History Family History Mother Healthy adult Father Healthy adult Grandparent Lung cancer Social History Social History Years smoked: 3 Smoking status: Current every day smoker Tobacco type: e-cigarettes/vaping Alcohol intake: never Substance use: never Substance use type: marijuana Lack of Transportation: No Lack of Food: Never True Current Housing: I Have Housing Concerned About Future Housing: No Difficulty Paying Gas/Electric Bills: No Difficulty Paying for Meds: No Currently Unemployed: No Education: High School Diploma/GED Difficulty w/ Childcare or Family Care: No Living arrangements: with family Additional living arrangements comments: with mother Occupation/Education: occupation Additional occupation/education comments: [employer] Gender identity (if verbalized by the patient): Female Spiritual care concerns: No Exam Day of Procedure 02/28/23 05:17
[2023-02-28] MEDS: OXYTOCIN 30 UNITS/NS 500 ML 30 UNITS/500 ML BAG IV CONT (06:46)
--- NOTE | 2023-02-28 08:02 | PM.IMHP ---
H&P: HPI History of Present Illness Date/Time: 02/28/23 08:02 Chief Complaint: labor Narrative: Marita is a 23yo G1 at 38.1 who presented in labor. complicated by anemia and LGA. GBA neg. Review of Systems Review of Systems: All systems reviewed & are unremarkable except as noted in HPI and below PMFSH Past Medical History Medical History History of psychiatric hospitalization Rash Suicide attempt by overdose Surgical History Surgical History H/O oral surgery by overdose Family History Family History Mother Healthy adult Father Healthy adult Grandparent Lung cancer Social History Social History Years smoked: 3 Smoking status: Current every day smoker Tobacco type: e-cigarettes/vaping Alcohol intake: never Substance use: never Substance use type: marijuana Lack of Transportation: No Lack of Food: Never True Current Housing: I Have Housing Concerned About Future Housing: No Difficulty Paying Gas/Electric Bills: No Difficulty Paying for Meds: No Currently Unemployed: No Education: High School Diploma/GED Difficulty w/ Childcare or Family Care: No Living arrangements: with family Additional living arrangements comments: with mother Occupation/Education: occupation Additional occupation/education comments: [employer] Gender identity (if verbalized by the patient): Female Spiritual care concerns: No Meds Home Medications and Allergies Home Medications Medication Instructions Recorded Confirmed Type ondansetron 4 mg disintegrating 4 mg PO Q6H PRN nausea and 08/20/22 02/28/23 Rx tablet vomiting #30 tabs vit#24-iron amino acid 1 tablet PO DAILY 02/10/23 02/28/23 History chelat-folic acid 30 mg-975 mcg tablet Allergies Allergy/AdvReac Type Severity Reaction Status Date / Time Penicillins Allergy Unknown Verified 02/10/23 12:32 Vital Signs Vital Signs - 24 hr 02/28/23 03:01 02/28/23 03:16 02/28/23 04:01 Temperature Pulse Rate 87 79 79 Blood Pressure 134/91 H 136/84 136/96 H Pulse Oximetry Oxygen Delivery 02/28/23 04:16 02/28/23 04:34 02/28/23 04:35 Temperature Pulse Rate 80 104 H Blood Pressure 132/97 H 163/116 H Pulse Oximetry 100 Oxygen Delivery 02/28/23 04:37 02/28/23 04:39 02/28/23 04:43 Temperature Pulse Rate 82 99 79 Blood Pressure 171/119 H 128/90 134/85 Pulse Oximetry 100 Oxygen Delivery 02/28/23 04:44 02/28/23 04:46 02/28/23 04:49 Temperature 98.9 F Pulse Rate 85 Blood Pressure 133/86 Pulse Oximetry 99 99 Oxygen Delivery 02/28/23 04:54 02/28/23 04:59 02/28/23 05:01 Temperature Pulse Rate 93 Blood Pressure 139/83 Pulse Oximetry 100 100 Oxygen Delivery 02/28/23 05:04 02/28/23 05:09 02/28/23 05:14 Temperature Pulse Rate Blood Pressure Pulse Oximetry 100 100 100 Oxygen Delivery 02/28/23 05:16 02/28/23 05:19 02/28/23 05:24 Temperature Pulse Rate 93 Blood Pressure 126/81 Pulse Oximetry 100 100 Oxygen Delivery 02/28/23 05:29 02/28/23 05:31 02/28/23 05:34 Temperature Pulse Rate 75 Blood Pressure 127/81 Pulse Oximetry 99 100 Oxygen Delivery 02/28/23 05:39 02/28/23 05:44 02/28/23 05:46 Temperature Pulse Rate 84 Blood Pressure 134/80 Pulse Oximetry 100 100 Oxygen Delivery 02/28/23 05:49 02/28/23 05:54 02/28/23 05:59 Temperature Pulse Rate Blood Pressure Pulse Oximetry 100 100 100 Oxygen Delivery 02/28/23 06:01 02/28/23 06:04 02/28/23 06:09 Temperature Pulse Rate 75 Blood Pressure 132/81 Pulse Oximetry 100 100 Oxygen Delivery 02/28/23 06:14 02/28/23 06:16 02/28/23 06:19 Temperature P
[2023-02-28 14:59] LABS: Rapid Plasma Reagin Non-Reactive (NonReactive)
--- NOTE | 2023-02-28 17:43 | PM.OBPRVD ---
OB - Delivery Note Procedure Delivery date: 02/28/23 Procedure: Intrapartal Events: Decelerations Delivery augmentation: Pitocin Delivery monitor: External FHT and Internal Uterine Route of delivery: Laceration Description: Vaginal Delivery repair: vicryl Quantitative Blood Loss (ml): 120 Anesthesia type: Epidural Disposition: Floor Narrative: With adequate expulsive efforts by the mother, the baby's head was delivered JURGEN. The baby's anterior shoulder was delivered under the pubic symphysis without difficulty. The posterior shoulder and the rest of the baby delivered without difficulty. The infant was placed on the mothers chest and suctioned and stimulated. The cord was clamped and cut after 60 seconds. Mother and baby both stable. Baby Date of : 02/28/23 Time of : 17:19 Weeks of gestation at delivery: 38 gender: Male presentation: vertex Placenta delivery description: Spontaneous Cord Vessel Description: 3 Vessels and Delayed Cord Clamping score one minute: 8 score five minutes: 9
[2023-02-28] MEDS: OXYTOCIN 30 UNITS/NS 500 ML 30 UNITS/500 ML BAG 125 UNITS IV CONT (18:00)
[2023-02-28] MEDS: IBUPROFEN 600 MG TABLET PO (19:13)
[2023-02-28] MEDS: BENZOCAINE 20% AER SPR (*SP) 56 GM CAN 1 SPRAY TOPICAL (19:14)
[2023-02-28] MEDS: WITCH HAZEL 40 PADS 1 PAD TOPICAL (19:14)
[2023-03-01 04:27] VITALS: BP 132/89; PULSE 96; RESP 18; TEMP 37.7; O2SAT 97
[2023-03-01 04:55] LABS: Hematocrit 31.9 % (37.0-47.0); Hemoglobin 10.4 g/dL (12.0-15.0)
--- NOTE | 2023-03-01 07:42 | PM.OBPNVD ---
OB - PN: Subj Subjective Date/time seen: 03/01/23 07:42 Patient comments: no complaints and pain well controlled baby status: doing well and bottle feeding well OB - PN: Obj Data Labs 03/01/23 04:14 Labs: Laboratory Results - last 24 hr 02/28/23 03/01/23 03:42 04:14 Hgb 10.4 L Hct 31.9 L RPR Non-reactive OB - PN A/P Plan day: 1 Plan: routine care Comments: circ done after consented home tomorrow. Time Spent With Patient Time: Total time spent is greater than 50% in coordination of care (as documented) at patient's floor/unit and/or counseling patient: Time with patient: less than 15 minutes Exam Narrative: NAD abdomen soft, nontender, fundus firm below the umbilicus Extremities nontender, 1+ edema
[2023-03-01 08:30] VITALS: BP 128/83; PULSE 85; RESP 16; TEMP 36.8; O2SAT 100
[2023-03-01] MEDS: IBUPROFEN 600 MG TABLET PO (08:30)
[2023-03-01] MEDS: MULTIVIT/MIN/PREN/FOL AC/IRON TABLET 1 TAB PO (08:30)
[2023-03-01 17:55] VITALS: BP 132/80; PULSE 82; RESP 14; TEMP 36.8; O2SAT 100
[2023-03-01 19:41] VITALS: BP 115/80; PULSE 84; RESP 18; TEMP 37.2
[2023-03-02] MEDS: IBUPROFEN 600 MG TABLET PO ×2 (00:26→10:31)
--- NOTE | 2023-03-02 05:24 | PM.OBPNVD ---
OB - PN: Subj Subjective Date/time seen: 03/02/23 05:24 Patient comments: no complaints and pain well controlled baby status: doing well OB - PN: Obj Data Labs 03/01/23 04:14 Labs: Laboratory Results - last 24 hr 03/01/23 04:14 Hgb 10.4 L Hct 31.9 L OB - PN A/P Assessment and Plan (1) , delivered: Code(s): O80 - Encounter for full-term uncomplicated delivery Status: Acute Plan day: 2 Plan: routine care and discharge home Time Spent With Patient Time: Total time spent is greater than 50% in coordination of care (as documented) at patient's floor/unit and/or counseling patient: Time with patient: less than 15 minutes Exam Narrative: NAD abdomen soft, nontender, fundus firm below the umbilicus Extremities nontender, 1+ edema
--- NOTE | 2023-03-02 05:26 | PM.OBDSVD ---
DS: Admitting Diagnosis Discharge Date 03/02/23 Admitting Diagnosis term DS: Discharge Diagnosis Discharge Diagnosis (1) , delivered: Code(s): O80 - Encounter for full-term uncomplicated delivery Status: Acute OB - DS: Summary Hospital Course Hospital Course: Marita was admitted for elective induction of labor at 39w. She proceeded to have an uncomplicated vaginal delivery and course. She was discharged home on PPD 2. OB Procedures : Ultrasound OB Procedures Intrapartum: Spontaneous Vag Delivery OB Procedures: : None Peripartum Data Delivery Method: Natural Vaginal complications: none Status at Discharge Functional status at discharge: independent ambulation Time Spent with Patient Time attestation: Total time spent providing and/or coordinating discharge services: Exam Narrative: NAD abdomen soft, appropriately tender Ext non tender, 1+ edema DS: Data Data Completed and Pending Labs on day of discharge: Labs from last 24 hours 03/01/23 04:14 Hgb 10.4 L Hct 31.9 L Discharge Plan Discharge Attending physician on discharge: Verito Deleon Discharging Clinician: Verito Deleon Anticipated Discharge Date/Time: 03/02/23 05:25 Patient Disposition: Home, Self-Care Activity: pelvic rest Diet: regular Patient Instructions: Antibiotic Form Stand Alone Forms: General Discharge Information Follow-up/Referrals: Verito Deleon MD [Physician] - 4 Weeks Discharge Medications: Continued Complete 30-975 mg-mcg Tablet 1 tablet PO DAILY Discontinued ondansetron 4 mg tablet,disintegrating 4 mg PO Q6H PRN (Reason: nausea and vomiting) Qty: 30 0RF Date of admission: 02/28/23 01:38 Primary Care Provider: Cristhian Torres Admitting Provider: Tracy Ghosh Attending physician on admission: Tracy Ghosh Condition: Stable
[2023-03-02 10:25] VITALS: BP 132/70; PULSE 84; RESP 16; TEMP 36.7; O2SAT 100
[2023-03-02] MEDS: DOCUSATE SODIUM 100 MG CAPSULE PO (10:31)
[2023-03-02] MEDS: TETANUS,DIPHTHERIA,AC PERTUSSIS ADULT (0.5 ML) BOOSTRIX IM (10:31)
--- NOTE | 2023-03-02 10:33 | PC.NURSE ---
Patient viewed the discharge video Mother & Baby Care, The First Two Weeks . Patient was given the opportunity and encouraged to ask questions. Patient verbalized understanding of information shared and has been given the mother/baby guide for home reference.
== END 2023-03-02 12:40 | disposition home or self-care (01) | DRG 560 ==
LOC: ANHOB2 03-02 11:44 → ANHLDR 03-04 13:24 → ANHOB2 03-04 13:24
PROVIDERS: Admitting Provider Obstetrics & Gynecology; PCP Family Medicine; Visit Provider Obstetrics & Gynecology
DX: O36.63X0 Maternal care for excessive fetal growth, third trimester, not applicable or unspecified (principal); Z37.0 Single live birth; O71.4 Obstetric high vaginal laceration alone; D64.9 Anemia, unspecified; Z3A.38 38 weeks gestation of pregnancy; O36.8330 Maternal care for abnormalities of the fetal heart rate or rhythm, third trimester, not applicable or unspecified; O99.02 Anemia complicating childbirth
CPT/HCPCS: 36415; 84112; 85014; 85018; 85025; 86592; 86850; 86900; 86901; 90715; A9270; J2590; J2795; J7120

== ENCOUNTER 2023-04-06 12:13 | Emergency (ER) | payer OTHER, SELFPAY ==
--- NOTE | ~2023-04-06 | US_ITS ---
EXAMINATION: US transvaginal DATE: 04/06/2023 14:57 INDICATION: Endometritis and retained products of conception TECHNIQUE: Multiple endovaginal sonographic images of the pelvis were obtained. COMPARISON: None. FINDINGS: The uterus measures 10.0 x 5.3 x 6.0 cm. The endometrial complex measures 11-12 mm in thickness with heterogeneous echogenicity including a few small hyperechoic foci small amount of internal vascular flow on color Doppler which could be consistent with provided history of retained products of concept ion. There is also a small amount of hypoechoic material surrounded by anechoic fluid within the endo cervical canal. The right ovary measures 3.2 x 1.5 x 2.6 cm. The left ovary measures 2.9 x 1.2 x 2.5 cm. Vascular flow is identified along with a few tiny anechoic follicles in both ovaries. There is a minimal amount of free fluid in the pelvis. IMPRESSION: 1. Small amount of likely retained products of conception within the mildly thickened and heterogeneo us endometrial and endocervical canals. Reviewed, dictated and finalized at location A. IMPRESSION: 1. Small amount of likely retained products of conception within the mildly thi ckened and heterogeneous endometrial and endocervical canals.
[2023-04-06 12:17] VITALS: BP 127/82; PULSE 102; RESP 16; TEMP 37.2; O2SAT 99
--- NOTE | 2023-04-06 12:56 | ED.FEMALEGU ---
HPI - Female Genitourinary General Chief complaint: Vaginal Bleeding Stated complaint: post bleeding Time Seen by Provider: 04/06/23 12:31 Source: patient and family (father) Limitations: no limitations History of Present Illness HPI Narrative: This is a 23yo who is 37 days post after of a male infant on 02/28/23. She had some tearing (unclear grade/degree) during delivery that required absorbale sutures but otherwise and delivery uncomplicated. Previously ObGyn Dr. Deleon but they are no longer with the original practice and she is scheduled to follow up for her 6 week appointment with a different provider this . Since delivery, she continued to pass lochia and have bleeding that was initially light but has become heavier and with clots. She is changing out a regular maxi pad nearly every hour though denies it being saturated, only changing for hygiene. No fevers, SOB, syncope/near syncope. She will occcasionally become dizzy when stnading but no heart racing/palpitaitions. She is experiencing crampy abdominal pain. Water broke on day of delivery at 1am and delivery at 5:19pm (approx 16 hours). Patient previously noted to be anemic but not requiring blood transfusions. Quality of pain: cramping Vaginal bleeding: moderate and # pads per hour (1) Related Data : 1 Para: 1 Total number of abortions (spontaneous and elective): 0 Home Medications Medication Instructions Recorded Confirmed vit#24-iron amino acid 1 tablet PO DAILY 02/10/23 02/28/23 chelat-folic acid 30 mg-975 mcg tablet Allergies Allergy/AdvReac Type Severity Reaction Status Date / Time No Known Allergies Allergy Verified 04/06/23 12:20 [facility] Past Medical History Medical History (Updated 04/07/23 @ 12:52 by Kingsley Ma MD) Anemia History of psychiatric hospitalization Rash Suicide attempt by overdose Surgical History Surgical History H/O oral surgery by overdose Family History Family History Mother Healthy adult Father Healthy adult Grandparent Lung cancer Social History Social History Years smoked: 3 Smoking status: Current every day smoker Tobacco type: e-cigarettes/vaping Alcohol intake: never Substance use: never Substance use type: marijuana Lack of Transportation: No Lack of Food: Never True Current Housing: I Have Housing Concerned About Future Housing: No Difficulty Paying Gas/Electric Bills: No Difficulty Paying for Meds: No Currently Unemployed: No Education: High School Diploma/GED Difficulty w/ Childcare or Family Care: No Living arrangements: with family Additional living arrangements comments: with mother Occupation/Education: occupation Additional occupation/education comments: [employer] Gender identity (if verbalized by the patient): Female Spiritual care concerns: No Exam Const: General: healthy appearing and no acute distress Nutritional Appearance: well nourished Orientation/consciousness: patient oriented x3 Limitations: no limitations HENMT: Head: normal to inspection Eyes: Conjunctivae: conjunctivae normal (not pale) Resp: Effort & Inspection: normal respiratory effort, not labored and no use of accessory muscles Cardio: Rate: tachycardic (mildly) GI: Inspection: non-distended GI Palp: Yes Soft to palpation, No Tenderness to palpation present (GI), No Guarding due to palpation present (GI), No Rigid due to palpation and No Rebound tenderness present : External Female Exam: normal external appearance Speculum Exam - Vagina: vaginal bleeding (difficult to achieve clean field of view to assess areas of active bleeding) Bimanual Exam- Adnexa, other: no masses OB/external & speculum: no herpetic lesions Skin: General skin exa
[2023-04-06 13:05] LABS: Basophils Absolute Auto 0.1 K/mm3 (0.0-0.1); Eosinophils Absolute Auto 0.2 K/mm3 (0-0.3); Eosinophils Percent Auto 2.2 % (0-4.4); Hematocrit 41.9 % (37.0-47.0); Hemoglobin 13.8 g/dL (12.0-15.0); Immature Granulocyte Absolute 0.03 K/mm3 (0.00-0.031); Immature Granulocyte Percent A 0.4 % (0-0.5); Lymphocytes Absolute Auto 1.98 K/mm3 (0.9-3.2); Lymphocytes Percent Auto 25.6 % (18.3-44.2); Mean Corpuscular HGB Conc 32.9 g/dl (32-36); Mean Corpuscular Hemoglobin 27.9 pg (26-34); Mean Corpuscular Volume 84.8 fl (80-100); Monocytes Absolute Auto 0.7 K/mm3 (0.1-0.6); Monocytes Percent Auto 8.9 % (2.6-8.5); Neutrophils Absolute Auto 4.8 K/mm3 (1.3-6.7); Neutrophils Percent Auto 61.9 % (45.5-73.1); Platelet Count Result 325 k/mm3 (150-375); Red Blood Count 4.94 M/mm3 (4.2-5.4); Red Cell Distribution Width 14.6 % (11.5-14.5); White Blood Count 7.7 K/mm3 (4.5-10.0)
[2023-04-06 13:29] LABS: Partial Thromboplastin Time 32.8 SECONDS (22.3-36.8)
== END 2023-04-06 15:44 | disposition home or self-care (01) ==
PROVIDERS: Emergency Provider Student in an Organized Health Care Education/Training Program; PCP Family Medicine
DX: N93.8 Other specified abnormal uterine and vaginal bleeding (principal); O72.2 Delayed and secondary postpartum hemorrhage; F17.290 Nicotine dependence, other tobacco product, uncomplicated; D64.9 Anemia, unspecified
CPT/HCPCS: 36415; 76830; 81025; 85025; 85610; 85730; 86850; 86900; 86901; 99284

== ENCOUNTER 2023-04-07 10:52 | Day surgery (SDC) | payer OTHER, SELFPAY ==
[2023-04-07 11:21] VITALS: BP 127/76; PULSE 88; RESP 18; TEMP 36.6; O2SAT 100
[2023-04-07 11:54] LABS: Basophils Absolute Auto 0.1 K/mm3 (0.0-0.1); Basophils Percent Auto 1.2 % (0.2-1.2); Eosinophils Absolute Auto 0.2 K/mm3 (0-0.3); Eosinophils Percent Auto 2.2 % (0-4.4); Hematocrit 38.9 % (37.0-47.0); Hemoglobin 12.8 g/dL (12.0-15.0); Immature Granulocyte Absolute 0.02 K/mm3 (0.00-0.031); Immature Granulocyte Percent A 0.3 % (0-0.5); Lymphocytes Absolute Auto 1.85 K/mm3 (0.9-3.2); Lymphocytes Percent Auto 25.7 % (18.3-44.2); Mean Corpuscular HGB Conc 32.9 g/dl (32-36); Mean Corpuscular Hemoglobin 27.8 pg (26-34); Mean Corpuscular Volume 84.4 fl (80-100); Mean Platelet Volume 9.2 fl (7.4-10.4); Monocytes Absolute Auto 0.6 K/mm3 (0.1-0.6); Monocytes Percent Auto 8.5 % (2.6-8.5); Neutrophils Absolute Auto 4.5 K/mm3 (1.3-6.7); Neutrophils Percent Auto 62.1 % (45.5-73.1); Platelet Count Result 338 k/mm3 (150-375); Red Blood Count 4.61 M/mm3 (4.2-5.4); Red Cell Distribution Width 14.8 % (11.5-14.5); White Blood Count 7.2 K/mm3 (4.5-10.0)
[2023-04-07 12:08] LABS: Alanine Aminotransferase 48 U/L (6-35); Albumin Level 4.4 g/dL (3.5-5.1); Alkaline Phosphatase 101 U/L (38-126); Anion Gap 8 mmol/L (8-16); Aspartate Amino Transferase 38 U/L (14-36); Bilirubin,Total 0.6 mg/dL (0.2-1.3); Blood Urea Nitrogen 14 mg/dL (7-17); Calcium 9.1 mg/dL (8.4-10.2); Carbon Dioxide 22 mmol/L (22-30); Chloride 106 mmol/L (98-107); Estimated CRCL calculation 131 ml/min; Estimated Glomerular Filt Rate > 60; Glucose 90 mg/dL (65-110); Sodium 136 mmol/L (137-145)
[2023-04-07 12:12] LABS: Prothrombin Time 13.7 Seconds (11.1-14.7)
[2023-04-07 12:13] LABS: Partial Thromboplastin Time 32.5 SECONDS (22.3-36.8)
[2023-04-07 12:21] LABS: Beta HCG Quantitative < 2.39 mIU/ML
[2023-04-07 12:32] VITALS: BP 116/96; PULSE 107; RESP 20; O2SAT 100
--- NOTE | 2023-04-07 12:42 | ED.FEMALEGU ---
HPI - Female Genitourinary General Chief complaint: Vaginal Bleeding Stated complaint: vag bleeding, sent for D & C Time Seen by Provider: 04/07/23 12:36 History of Present Illness HPI Narrative: Patient is a 23-year-old female who presents ER with concerns for retained products of conception. She had a baby 1 month ago. She has had persistent lochia. She was evaluated in the ER recently and also at her physician's office today. Today at the physician's office there is evidence of retained products of conception on ultrasound. They felt patient required D&C and sent her to the ER for evaluation/stabilization. Patient reports she still continues to have lochia but no change in its consistency. No fevers or chills or sweats. She has had intermittent cramping but no pain today. She last had food/water at 11:40 PM on 04/06/2023. Related Data Home Medications Medication Instructions Recorded Confirmed vit#24-iron amino acid 1 tablet PO DAILY 02/10/23 02/28/23 chelat-folic acid 30 mg-975 mcg tablet Allergies Allergy/AdvReac Type Severity Reaction Status Date / Time No Known Allergies Allergy Verified 04/06/23 12:20 Review of Systems Review of Systems: All systems reviewed & are unremarkable except as noted in HPI and below Constitutional: Constitutional: Reports no additional constitutional complaints ENT: Reports system reviewed and no additional complaints, except as documented Cardiovascular: Cardiovascular: Reports no additional cardiovascular complaints Respiratory: Respiratory: Reports no additional respiratory complaints Gastrointestinal: Gastrointestinal: Reports no additional gastrointestinal complaints Genitourinary: Genitourinary: Reports abnormal vaginal bleeding, Denies nocturia, Denies dysuria and Denies pelvic pain PMFSH Past Medical History Medical History (Updated 04/07/23 @ 12:52 by Kingsley Ma MD) Anemia History of psychiatric hospitalization Rash Suicide attempt by overdose Surgical History Surgical History H/O oral surgery by overdose Family History Family History Mother Healthy adult Father Healthy adult Grandparent Lung cancer Social History Social History Years smoked: 3 Smoking status: Current every day smoker Tobacco type: e-cigarettes/vaping Alcohol intake: never Substance use: never Substance use type: marijuana Lack of Transportation: No Lack of Food: Never True Current Housing: I Have Housing Concerned About Future Housing: No Difficulty Paying Gas/Electric Bills: No Difficulty Paying for Meds: No Currently Unemployed: No Education: High School Diploma/GED Difficulty w/ Childcare or Family Care: No Living arrangements: with family Additional living arrangements comments: with mother Occupation/Education: occupation Additional occupation/education comments: [employer] Gender identity (if verbalized by the patient): Female Spiritual care concerns: No Exam Narrative: GENERAL: Well-appearing, well-nourished, and in no acute distress. HEAD: Normocephalic, atraumatic. ENT: Mucous membranes moist. CHEST: Clear to auscultation. No respiratory distress. HEART: Regular rate and rhythm. Normal peripheral pulses. ABDOMEN: Soft, nontender, nondistended. EXTREMITIES: Normal range of motion. No edema. SKIN: Warm, dry, no rash. NEURO: Alert and oriented x3. PSYCH: Normal mood and affect. Course Course Emergency Course: Patient resting comfortably and stable to go to the OR. Patient has had outpatient evaluation with ultrasound showing retained products of conception. The OR is ready for the patient. Vital Signs Vital signs: Vital Signs Temperature 97.9 F 04/07/23 11:21 Pulse Rate 88 04/07/23 11:21 Respiratory R
--- NOTE | 2023-04-07 13:11 | WPDANESEPPF ---
Anes - Initial Pre Proc Eval Procedure: Operation Date: 04/07/23 13:30 Proposed Procedures p Dilation &Curettage Suction and Sharp - Tracy Ghosh MD Date/Time: 04/07/23 13:11 Surgeon: Tracy Ghosh MD Pre Op Diagnosis: vag bleeding, sent for D & C Patient Data Age: 23 Gender: F Height: 1.57 m Weight: 66.22 kg Last Vital Signs Temp 36.6 C 04/07/23 11:21 Pulse 107 H 04/07/23 12:32 Resp 20 04/07/23 12:32 BP 116/96 H 04/07/23 12:32 Pulse Ox 100 04/07/23 12:32 O2 Del Method Room Air 04/07/23 11:21 Allergies Allergy/AdvReac Type Severity Reaction Status Date / Time No Known Allergies Allergy Verified 04/06/23 12:20 Home Medications Medication Instructions Recorded Confirmed Type vit#24-iron amino acid 1 tablet PO DAILY 02/10/23 02/28/23 History chelat-folic acid 30 mg-975 mcg tablet Laboratory Tests 04/07/23 11:38 WBC 7.2 K/mm3 (4.5-10.0) RBC 4.61 M/mm3 (4.2-5.4) Hgb 12.8 g/dL (12.0-15.0) Hct 38.9 % (37.0-47.0) MCV 84.4 fl (80-100) MCH 27.8 pg (26-34) MCHC 32.9 g/dl (32-36) RDW 14.8 H % (11.5-14.5) Plt Count 338 k/mm3 (150-375) MPV 9.2 fl (7.4-10.4) Immature Gran % (Auto) 0.3 % (0-0.5) Neut % (Auto) 62.1 % (45.5-73.1) Lymph % (Auto) 25.7 % (18.3-44.2) [place] % (Auto) 8.5 % (2.6-8.5) Eos % (Auto) 2.2 % (0-4.4) Baso % (Auto) 1.2 % (0.2-1.2) Lymph # (Auto) 1.85 K/mm3 (0.9-3.2) [place] # (Auto) 0.6 K/mm3 (0.1-0.6) Eos # (Auto) 0.2 K/mm3 (0-0.3) Baso # (Auto) 0.1 K/mm3 (0.0-0.1) Abs Immat Gran (auto) 0.02 K/mm3 (0.00-0.031) Absolute Neuts (auto) 4.5 K/mm3 (1.3-6.7) Absolute Nucleated RBC 0.0 K/mm3 (0.0-0.012) Nucleated RBC % 0.0 % (0.0-0.2) PT 13.7 Seconds (11.1-14.7) INR 1.0 APTT 32.5 SECONDS (22.3-36.8) Sodium 136 L mmol/L (137-145) Potassium 4.0 mmol/L (3.4-5.0) Chloride 106 mmol/L (98-107) Carbon Dioxide 22 mmol/L (22-30) Anion Gap 8 mmol/L (8-16) BUN 14 mg/dL (7-17) Creatinine 0.50 L mg/dL (0.7-1.0) Estim Creat Clear Calc 131 ml/min Estimated GFR > 60 (59 - ) Glucose 90 mg/dL (65-110) Calcium 9.1 mg/dL (8.4-10.2) Total Bilirubin 0.6 mg/dL (0.2-1.3) AST 38 H U/L (14-36) ALT 48 H U/L (6-35) Alkaline Phosphatase 101 U/L (38-126) Total Protein 8.0 g/dL (6.3-8.2) Albumin 4.4 g/dL (3.5-5.1) Beta HCG, Quant < 2.39 mIU/ML Patient hx anesthesia problems: none Family hx anesthesia problems: none Results Review: All pre-operative results and documents have been reviewed as part of the pre-operative evaluation. [facility] Past Medical History Medical History Anemia History of psychiatric hospitalization Rash Suicide attempt by overdose Surgical History Surgical History H/O oral surgery by overdose Family History Family History Mother Healthy adult Father Healthy adult Grandparent Lung cancer Social History Social History Years smoked: 3 Smoking status: Current every day smoker Tobacco type: e-cigarettes/vaping Alcohol intake: never Substance use: never Substance use type: marijuana Lack of Transportation: No Lack of Food: Never True Current Housing: I Have Housing Concerned About Future Housing: No Difficulty Paying Gas/Electric Bills: No Difficulty Paying for Meds: No Currently Unemployed: No Education: High School Diploma/GED Difficulty w/ Childcare or Family Care: No Living arrangements: with family Additional living arrangements comments: with mother Occupation/Education: occupation Additional occupation/education c
[2023-04-07 13:22] VITALS: BP 112/69; PULSE 95; RESP 18; TEMP 37.5; O2SAT 100
--- NOTE | 2023-04-07 13:34 | PM.IMHP ---
H&P: HPI History of Present Illness Date/Time: 04/07/23 13:34 Chief Complaint: 23-year-old female who is status with retained placenta. She continues to bleed moderately. We are ready to perform suction D& C. She has agreed to that. She understands the risk and she understands injuries may occur that result in hospitalization, more surgery, and severe illness. She understands risk of hemorrhage and infection. She denies any chest pain shortness of breath. She denies any nausea, vomiting, fever, chills. Review of Systems Review of Systems: All systems reviewed & are unremarkable except as noted in HPI and below Constitutional: Constitutional: Denies chills, Denies fatigue, Denies fever(s) and Denies weakness Eyes: Eyes: Denies blurry vision, Denies change in vision, Denies loss of peripheral vision, Denies loss of vision, Denies other visual disturbances and Denies eye pain ENT: Denies vertigo, Denies dizziness, Denies hearing loss, Denies mouth pain, Denies nasal obstruction, Denies neck mass and Denies neck pain Cardiovascular: Cardiovascular: Denies chest pain, Denies diaphoresis, Denies syncope, Denies leg edema and Denies dyspnea Respiratory: Respiratory: Denies chest congestion, Denies cough, Denies hemoptysis, Denies dyspnea and Denies wheezing Gastrointestinal: Gastrointestinal: Denies abdominal pain, Denies constipation, Denies diarrhea, Denies nausea and Denies vomiting Genitourinary: Genitourinary: Denies hematuria, Denies change in libido, Denies nocturia, Denies genital lesions, Denies flank pain and Denies urinary urgency Musculoskeletal: Musculoskeletal: Denies abnormal gait, Denies back pain, Denies myalgias, Denies arthralgias, Denies joint swelling, Denies muscle weakness and Denies neck pain Integumentary/Breasts: Skin/Breast: Denies swelling, Denies breast pain, Denies breast mass, Denies dry skin, Denies nipple discharge, Denies unusual bruising and Denies jaundice Neurologic: Denies Neuro-related abnormal movements, Denies Abnormal speech present, Denies abnormal gait, Denies behavioral changes, Denies confusion, Denies vertigo, Denies dizziness, Denies syncope, Denies loss of vision, Denies memory loss, Denies convulsions and Denies weakness Psychiatric: Psychiatric: Denies abnormal sleep pattern, Denies behavioral changes, Denies change in libido, Denies confusion, Denies depression, Denies anhedonia and Denies memory loss Endocrine: Endocrine: Reports no additional endocrine complaints, Denies change in libido and Denies fatigue Hematologic/Lymphatic: Hematologic/Lymphatic: Reports no additional hematologic/lymphatic complaints Allergic/Immunologic: Allergic/Immunologic: Reports no additional allergic/immunologic complaints and Denies wheezing PMFSH Past Medical History Medical History Anemia History of psychiatric hospitalization Rash Suicide attempt by overdose Surgical History Surgical History H/O oral surgery by overdose Family History Family History Mother Healthy adult Father Healthy adult Grandparent Lung cancer Social History Social History Years smoked: 3 Smoking status: Current every day smoker Tobacco type: e-cigarettes/vaping Alcohol intake: never Substance use: never Substance use type: marijuana Lack of Transportation: No Lack of Food: Never True Current Housing: I Have Housing Concerned About Future Housing: No Difficulty Paying Gas/Electric Bills: No Difficulty Paying for Meds: No Currently Unemployed: No Education: High School Diploma/GED Difficulty w/ Childcare or Family Care: No Living arrangements: with family Additional living arrangements comments: with mother Occupation/Education: occupation Additio
[2023-04-07] MEDS: LACTATED RINGERS 1,000 ML 30 ML IV CONT (13:36)
--- NOTE | 2023-04-07 13:36 | WPDHPUPDATE1 ---
History and Physical Update Update Date/Time: 04/07/23 13:36 History and Physical has been reviewed, including an updated exam of the patient. There are NO changes in the patient's condition. Risks, benefits, and alternatives have been discussed and questions answered. Patient agrees to proceed with procedure.
--- NOTE | 2023-04-07 14:13 | P.OP_ITS ---
Procedure Note - Detailed Date of Procedure 04/07/23 Pre-op Diagnosis retained placenta, vag bleeding, sent for D & C Post-op Diagnosis Same Procedure Performed Suction D&C Surgeon Tracy Ghosh MD Anesthesia MAC Indications missed Findings normal-appearing vulva vagina and cervix to. Moderate amount of products conception within the uterus. 8 cm uterus Description of Procedure the patient was taken the operating room. She was prepped and draped in dorsal lithotomy position after induction of mac anesthesia. A speculum was placed in the vagina. Cervix grasped with tenaculum. The cervix was dilated to about 1 cm Using Bond dilators. A 8. [place] curved curette was used to perform suction D&C. The curette was introduced and vacuum was applied. The curette was removed over all surfaces of the intrauterine cavity multiple times. This was done until all the surfaces were clear and had the familiar grainy texture they can be felt through the instrument. A sharp curette was then used to curettage all the surfaces. The suction cup was then reapplied 1 more time to remove any debris. The instruments were removed. The speculum and tenaculum were removed. The patient tolerated the procedure well. She was taken recovery room stable condition. Estimated Blood Loss 50 Drains No Packing No Pathology Yes Complications No immediate complications Condition Stable Disposition PACU
[2023-04-07 14:14] VITALS: BP 104/56; PULSE 83; RESP 16; O2SAT 98
[2023-04-07 14:40] VITALS: BP 104/56; PULSE 70; O2SAT 99
[2023-04-07 15:10] VITALS: BP 99/64; PULSE 76; O2SAT 100
== END 2023-04-07 15:20 | disposition home or self-care (01) ==
LOC: ANHED 12:52 → ANHSURGERY 12:58
PROVIDERS: Emergency Provider Emergency Medicine; PCP Obstetrics & Gynecology; Visit Provider Obstetrics & Gynecology
PROC: (CPT 59160; principal; 2023-04-07 13:30)
DX: O73.0 Retained placenta without hemorrhage (principal); O99.335 Smoking (tobacco) complicating the puerperium; F17.290 Nicotine dependence, other tobacco product, uncomplicated
CPT/HCPCS: 59160; 36415; 80053; 84702; 85025; 85610; 85730; 88305; 99285; J0690; J2250; J3010; J7120

== ENCOUNTER 2023-08-14 20:06 | Emergency (ER) | payer MEDICAID, SELFPAY ==
[2023-08-14 20:06] VITALS: BP 128/85; PULSE 104; RESP 18; TEMP 37.7; O2SAT 99
[2023-08-14 20:08] VITALS: PULSE 103; RESP 19; O2SAT 97
--- NOTE | 2023-08-14 20:10 | ECG_ITS ---
Measurements Intervals [place] Rate: 99 P: 41 PA: 138 QRS: 63 QRSD: 78 T: 28 QT: 334 QTc: 430 Interpretive Statements SINUS RHYTHM NORMAL ELECTROCARDIOGRAM NO PREVIOUS ECG AVAILABLE FOR COMPARISON Electronically Signed On 08-15-2023 12:06:09 TALKBACK HOST by Neo Price M.D.
[2023-08-14 20:15] VITALS: BP 109/97; PULSE 116; RESP 16; O2SAT 98
[2023-08-14 20:30] LABS: Basophils Absolute Auto 0.05 K/mm3 (0.00-0.10); Basophils Percent Auto 0.4 % (0.0-1.0); Eosinophils Absolute Auto 0.11 K/mm3 (0.02-0.50); Eosinophils Percent Auto 0.9 % (1.0-6.0); Hematocrit 34.9 % (35.0-49.0); Hemoglobin 11.8 g/dL (12.0-15.0); Immature Granulocyte Absolute 0.05 K/mm3 (0.00-0.00); Immature Granulocyte Percent A 0.4 % (0.0-0.0); Lymphocytes Percent Auto 14.9 % (18.0-42.0); Mean Corpuscular HGB Conc 33.8 g/dL (32.0-36.0); Mean Corpuscular Hemoglobin 27.7 pg (27.0-31.0); Mean Corpuscular Volume 81.9 fL (78.0-102.0); Mean Platelet Volume 9.1 fl (9.2-11.8); Monocytes Absolute Auto 0.87 K/mm3 (0.10-0.90); Monocytes Percent Auto 6.8 % (2.0-11.0); Neutrophils Absolute Auto 9.7 K/mm3 (1.7-7.2); Neutrophils Percent Auto 76.6 % (50.0-70.0); Platelet Count Result 315 K/mm3 (150-420); Red Blood Count 4.26 M/mm3 (4.20-5.40); Red Cell Distribution Width 14.5 % (11.6-14.4); White Blood Count 12.7 K/mm3 (4.8-10.8)
[2023-08-14 20:32] VITALS: BP 122/82; PULSE 106; RESP 24; O2SAT 98
[2023-08-14 20:46] LABS: D Dimer 0.33 mg/L (0.19-0.50)
[2023-08-14 20:47] VITALS: PULSE 110; RESP 22; O2SAT 98
--- NOTE | 2023-08-14 20:47 | PC.NURSE ---
PARENTS, SIG OTHER , AND CHILD ARE IN WAITING AREA. PT DENIES ANY NEEDS OR COMPLAINTS. NAD NOTED. VSS PER MONITOR. PT IS AWAITING LAB RESULTS.
[2023-08-14 20:51] LABS: Alanine Aminotransferase 22 U/L (14-59); Albumin Level 2.7 g/dL (3.4-5.0); Alkaline Phosphatase 98 U/L (46-116); Anion Gap 10 mmol/L (8-16); Aspartate Amino Transferase 11 U/L (15-37); Bilirubin,Total 0.1 mg/dL (0.00-1.00); Blood Urea Nitrogen 5 mg/dL (7-18); Calcium 8.1 mg/dL (8.5-10.1); Carbon Dioxide 25 mmol/L (21-32); Chloride 103 mmol/L (98-108); Estimated CRCL calculation 160 ml/min; Estimated Glomerular Filt Rate > 60; Glucose 107 mg/dL (70-99); Osmolality Calculated 283 mOsm/kg (285-295); Potassium 3.6 mmol/L (3.5-5.1); Sodium 138 mmol/L (136-145); Total Protein 6.4 g/dL (6.4-8.2)
[2023-08-14 20:52] LABS: Troponin I < 4.0 ng/L (0.00-60.4)
[2023-08-14 20:55] LABS: Appearance Urine Clear (Clear); Bilirubin Urine Negative (Negative); Blood Urine Negative (Negative); Color Urine Light Yellow (Yellow); Glucose Urine UA Negative (Negative); Ketones Urine Negative (Negative); Leukocyte Esterase Ur Negative LEU/UL (Negative); Nitrate Urine Negative (Negative); Protein Urine Negative (Negative); Specific Grav Ur 1.015 (1.010-1.020); Urobilinogen Urine 0.2 mg/dL (0.2-1.0); pH Urine 8.5 (5.0-8.0)
[2023-08-14 20:56] LABS: Add Urine Microscopic? NO
--- NOTE | 2023-08-14 20:59 | ED.CHESTPAIN ---
HPI - Chest Pain General Chief Complaint: Chest Pain Stated Complaint: chest pain Time Seen by Provider: 08/14/23 20:09 Source: patient and family Mode of arrival: ambulatory Limitations: no limitations History of Present Illness HPI narrative: this is a 23-year-old female that is 15 weeks presents with chest discomfort left-sided reproducible with palpation appears anxious with no shortness of breath no nausea vomiting no abdominal pain no dysuria no flank pain no vaginal discharge. complaint: chest discomfort Onset (ago): day(s) Related Data Home Medications Medication Instructions Recorded Confirmed vit#24-iron amino acid 1 tablet PO DAILY 02/10/23 08/14/23 chelat-folic acid 30 mg-975 mcg tablet Allergies Allergy/AdvReac Type Severity Reaction Status Date / Time No Known Allergies Allergy Verified 08/14/23 20:22 Review of Systems Review of Systems: All systems reviewed & are unremarkable except as noted in HPI and below PMFSH Past Medical History Medical History Anemia History of psychiatric hospitalization Rash Suicide attempt by overdose Surgical History Surgical History H/O oral surgery by overdose Family History Family History Mother Healthy adult Father Healthy adult Grandparent Lung cancer Social History Social History Years smoked: 3 Smoking status: Current every day smoker Tobacco type: e-cigarettes/vaping Alcohol intake: never Substance use: never Substance use type: marijuana Lack of Transportation: No Lack of Food: Never True Current Housing: I Have Housing Concerned About Future Housing: No Difficulty Paying Gas/Electric Bills: No Difficulty Paying for Meds: No Currently Unemployed: No Education: High School Diploma/GED Difficulty w/ Childcare or Family Care: No Living arrangements: with family Additional living arrangements comments: with mother Occupation/Education: occupation Additional occupation/education comments: [employer] Gender identity (if verbalized by the patient): Female Spiritual care concerns: No Exam Const: General: cooperative, healthy appearing, comfortable, no acute distress and well developed HENMT: Head: normal to inspection Mouth: Yes Normal oral and palatal mucosa present Eyes: General: appearance normal, both eyes and all related structures Neck: Neck: normal visual inspection, full ROM and no lymphadenopathy Chest: Chest palpation & inspection: normal inspection of the chest Other: Reproducible chest pain with palpation Resp: Effort & Inspection: normal respiratory effort and able to speak in complete sentences Auscultation: clear to auscultation bilaterally Cardio: Palpation: normal PMI Rate: regular rate Rhythm: regular rhythm Heart sounds: S1 normal heart sound present and S2 normal heart sound present GI: Inspection: normal to inspection : General: Yes bimanual renal exam normal bilaterally Psych: Appearance: grossly normal and well kempt Mental Status: mental status grossly normal Affect: Anxious affect present Course Course Emergency Course: patient had EKG which shows normal sinus rhythm, labs reviewed including troponin and D-dimer with normal limits UA with was normal. Vital Signs Vital signs: Vital Signs Temperature 37.7 C H 08/14/23 20:06 Pulse Rate 104 H 08/14/23 20:06 Respiratory Rate 18 08/14/23 20:06 Blood Pressure 128/85 08/14/23 20:06 Pulse Oximetry 99 08/14/23 20:06 Oxygen Delivery Room Air 08/14/23 20:06 Temperature 37.7 C H 08/14/23 20:06 Pulse Rate 104 H 08/14/23 20:06 Respiratory Rate 18 08/14/23 20:06 Blood Pressure 128/85 08/14/23 20:06 Pulse Oximetry 99 02/2
[2023-08-14 21:02] VITALS: BP 119/87; PULSE 101; RESP 14; O2SAT 99
== END 2023-08-14 21:12 | disposition home or self-care (01) ==
PROVIDERS: Emergency Provider Emergency Medicine
DX: O26.892 Other specified pregnancy related conditions, second trimester (principal); M94.0 Chondrocostal junction syndrome [Tietze]; O99.342 Other mental disorders complicating pregnancy, second trimester; O99.332 Smoking (tobacco) complicating pregnancy, second trimester; F17.290 Nicotine dependence, other tobacco product, uncomplicated; Z3A.15 15 weeks gestation of pregnancy
CPT/HCPCS: 36415; 80053; 81003; 84484; 85025; 85380; 93005; 99284

== ENCOUNTER 2024-03-22 12:11 | Emergency (ER) | payer OTHER, SELFPAY ==
[2024-03-22 12:11] VITALS: BP 128/86; PULSE 86; RESP 18; TEMP 36.9; O2SAT 98
--- NOTE | 2024-03-22 12:23 | ED.GENADULT ---
HPI - General Adult General Chief complaint: Dental/Oral Stated complaint: DENTAL PAIN WITH SWELLING Time Seen by Provider: 03/22/24 12:19 History of Present Illness HPI narrative: Marita is a 24F with a PMH of hyperemesis gravidarum that presented to the ER with pain and swelling in her upper left molars and swelling in her left cheek getting worse for a week. She tried to get into a Dentist but she goes [facility] [place] and cannot get in. No dysphagia, fevers or dyspnea. Related Data Allergies Allergy/AdvReac Type Severity Reaction Status Date / Time No Known Allergies Allergy Verified 03/22/24 12:13 Review of Systems Review of Systems: All systems reviewed & are unremarkable except as noted in HPI and below PMFSH Past Medical History Medical History Anemia History of psychiatric hospitalization Rash Suicide attempt by overdose Surgical History Surgical History H/O oral surgery by overdose Family History Family History Mother Healthy adult Father Healthy adult Grandparent Lung cancer Social History Social History Years smoked: 3 Smoking status: Current every day smoker Tobacco type: e-cigarettes/vaping Alcohol intake: never Substance use: never Substance use type: marijuana Lack of Transportation: No Lack of Food: Never True Current Housing: I Have Housing Concerned About Future Housing: No Difficulty Paying Gas/Electric Bills: No Difficulty Paying for Meds: No Currently Unemployed: No Education: High School Diploma/GED Difficulty w/ Childcare or Family Care: No Living arrangements: with family Additional living arrangements comments: with mother Occupation/Education: occupation Additional occupation/education comments: [employer] Gender identity (if verbalized by the patient): Female Spiritual care concerns: No Exam Const: General: cooperative, healthy appearing, comfortable, no acute distress, well developed, alert, awake and Physically active Orientation/consciousness: oriented to person, oriented to place and oriented to time HENMT: Head: normal to inspection, normocephalic and atraumatic Ears: hearing grossly normal bilaterally and external ears normal Face/Nose/Sinus: Normal external nose present Other: Left cheek was very swollen, left upper molar had TTP and erythema at the base Eyes: General: appearance normal, both eyes and all related structures Periorbital: periorbital findings normal Sclera: sclerae normal Pupils: Equal, round and reactive pupils present Neck: Neck: normal visual inspection Chest: Chest palpation & inspection: normal inspection of the chest Resp: Effort & Inspection: normal respiratory effort, able to speak in complete sentences and no respiratory distress Cardio: Jugular venous distension: no JVD Skin: General skin exam: normal color and no rashes or lesions noted Neuro: General: oriented to person, oriented to place and oriented to time Cranial nerves: Yes Equal, round and reactive pupils present Extrem: General: normal to inspection Course Course Emergency Course: Given toradol and Augmentin in the ED Vital Signs Vital signs: Vital Signs Temperature 98.4 F 03/22/24 12:11 Pulse Rate 86 03/22/24 12:11 Respiratory Rate 18 03/22/24 12:11 Blood Pressure 128/86 03/22/24 12:11 Pulse Oximetry 98 03/22/24 12:11 Oxygen Delivery Room Air 03/22/24 12:11 Temperature 98.4 F 03/22/24 12:11 Pulse Rate 86 03/22/24 12:11 Respiratory Rate 18 03/22/24 12:11 Blood Pressure 128/86 03/22/24 12:11 Pulse Oximetry 98 03/22/24 12:11 Oxygen Delivery Room Air 03/22/24 12:11 Medical Decision Making Vital Signs Vital Signs: Vital Signs Temper
[2024-03-22] MEDS: AMOXICILLIN/CLAVULANATE K 875-125 MG TAB 1 TABLET PO (12:37)
[2024-03-22] MEDS: KETOROLAC 30 MG/ML VIAL (*BKC) IM (12:39)
== END 2024-03-22 12:59 | disposition home or self-care (01) ==
PROVIDERS: Emergency Provider Family Medicine; PCP Family Medicine
DX: K04.7 Periapical abscess without sinus (principal); F17.290 Nicotine dependence, other tobacco product, uncomplicated
CPT/HCPCS: 96372; 99283; A9270; J1885

== ENCOUNTER 2024-03-22 19:11 | Observation (INO) | payer OTHER, SELFPAY ==
[2024-03-22] VITALS (9 sets, daily range): BP systolic 114–135; BP diastolic 63–87; PULSE 92–104; RESP 16–18; TEMP 36.4–37.1; O2SAT 97–99; BMI 31.7
--- NOTE | ~2024-03-22 | CT_ITS ---
EXAMINATION: CT facial bones w con DATE: 03/22/2024 21:23 INDICATION: Dental infection, facial cellulitis . TECHNIQUE: Computed tomography (CT) of the facial bones and maxillofacial region was performed withou t intravenous contrast. Automated exposure control and iterative reconstruction technique were employ ed. The dose-length product was 292.12 mGy-cm. COMPARISON: None. FINDINGS: Soft Tissues: Soft tissue swelling over the left mandible, cheek, and left nasal/inferior preorbital soft tissue. 9 mm fluid collection along the left maxilla with mild peripheral enhancement. Facial bones: No acute fracture. Multiple periapical lucencies in the maxillary arch extending into the bilateral maxillary sinuses. Eyes: The globes are intact. The soft tissue planes of the orbits are maintained. Paranasal Sinuses: Mild mucosal thickening in the inferior right maxillary sinus. Moderate mucosal t hickening in the left maxillary sinus. The remaining aerated spaces are clear. Foreign Bodies: No radiopaque foreign bodies. Other Findings: None. IMPRESSION: 9 mm odontogenic abscess along the left maxilla, likely extending from the root of the left second ma xillary premolar. There is moderate left maxillary mucosal thickening and significant overlying soft tissue swelling. Extensive periodontal disease of the maxillary arch. Reviewed, dictated and finalized at location K. IMPRESSION: 9 mm odontogenic abscess along the left maxilla, likely extending from the root of the left second maxillary premolar. There is moderate left maxillary mucosa l thickening and significant overlying soft tissue swelling. Extensive periodontal disease of the maxillary arch.
--- NOTE | ~2024-03-22 | CT_ITS ---
CT facial bones w con Ordering provider: Chloe Gerard APRN History: . Abscess/swelling . Comparison: None. Technique: Thin slice axial CT of the facial bones was performed without contrast. Coronal and sagit hollis reformatted images were also obtained. . Automated exposure control and iterative reconstruction technique were employed. The dose-length product was 445.70 mGy-cm. FINDINGS: PARANASAL SINUSES: bilateral maxillary sinus disease more on the left side. BONES: No facial fracture including no nasal bone fracture. ORBITS AND SUPERFICIAL SOFT TISSUES: The optic globes and orbits are normal. Soft tissue density seen lateral to the left orbit which may be a collection measuring 3.9 x 0.5 cm. Clinical correlation advised. Soft tissue swelling over the left maxillary sinus. Soft tissue swellin g over the left anterior lower mandible is also noted. Otherwise, The superficial soft tissues are no rmal. VISUALIZED MASTOIDS: Well aerated. LIMITED VISUALIZED BRAIN PARENCHYMA: Normal. IMPRESSION: No facial fracture. Soft tissue swelling lateral to the left orbit and left maxillary sinus which may be a small collecti on with surrounding fat stranding. Follow-up advised. Reviewed, dictated and finalized at location A. IMPRESSION: No facial fracture. Soft tissue swelling lateral to the left orbit and left maxillary sinus which m ay be a small collection with surrounding fat stranding. Follow-up advised.
--- NOTE | 2024-03-22 19:24 | ED.GENADULT ---
HPI - General Adult General Chief complaint: Dental/Oral Stated complaint: dental infection Time Seen by Provider: 03/22/24 19:13 History of Present Illness HPI narrative: Marita is a 24F with a PMH of hyperemesis gravidarum that presented to the ER with pain and swelling in her upper left molars and swelling in her left cheek getting worse for a week. She was treated earlier today with Augmentin and Toradol but the swelling and pain continued to get worse so she came in. She still can swallow and denies dyspnea. She has developed chills. Related Data Allergies Allergy/AdvReac Type Severity Reaction Status Date / Time No Known Allergies Allergy Verified 03/22/24 19:18 Review of Systems Review of Systems: ROS unobtainable: Yes unobtainable due to endotracheal tube PMFSH Past Medical History Medical History Anemia History of psychiatric hospitalization Rash Suicide attempt by overdose Surgical History Surgical History H/O oral surgery by overdose Family History Family History Mother Healthy adult Father Healthy adult Grandparent Lung cancer Social History Social History Years smoked: 3 Smoking status: Never smoker Tobacco type: e-cigarettes/vaping Second hand tobacco smoke exposure: No Alcohol intake: never Substance use: never Substance use type: does not use Do You Feel Safe in your Home?: Yes Lack of Transportation: No Lack of Food: Never True Current Housing: I Have Housing Concerned About Future Housing: No Difficulty Paying Gas/Electric Bills: No Difficulty Paying for Meds: No Currently Unemployed: No Education: High School Diploma/GED Difficulty w/ Childcare or Family Care: No Living arrangements: with family Additional living arrangements comments: with mother Occupation/Education: occupation Additional occupation/education comments: [employer] Gender identity (if verbalized by the patient): Female Spiritual care concerns: No Exam Const: General: cooperative, healthy appearing, comfortable, no acute distress, well developed, alert, awake and Physically active Orientation/consciousness: oriented to person, oriented to place and oriented to time HENMT: Head: normal to inspection, normocephalic and atraumatic Ears: hearing grossly normal bilaterally and external ears normal Face/Nose/Sinus: Normal external nose present Other: Significantly worsened left sided facial swelling Eyes: General: appearance normal, both eyes and all related structures Periorbital: periorbital findings normal Sclera: sclerae normal Pupils: Equal, round and reactive pupils present Neck: Neck: normal visual inspection Chest: Chest palpation & inspection: normal inspection of the chest Resp: Effort & Inspection: normal respiratory effort, able to speak in complete sentences and no respiratory distress Cardio: Jugular venous distension: no JVD Skin: General skin exam: normal color and no rashes or lesions noted Neuro: General: oriented to person, oriented to place and oriented to time Cranial nerves: Yes Equal, round and reactive pupils present Extrem: General: normal to inspection Course Course Emergency Course: She declined pain meds. Ordered labs and CT. EXAMINATION: CT facial bones w con DATE: 03/22/2024 21:23 INDICATION: Dental infection, facial cellulitis . TECHNIQUE: Computed tomography (CT) of the facial bones and maxillofacial region was performed without intravenous contrast. Automated exposure control and iterative reconstruction technique were employed. The dose-length product was 292.12 mGy-cm. COMPARISON: None. FINDINGS: Soft Tissues: Soft tissue swelling over the left mandible, cheek, and left nasal/inferior preorbital
[2024-03-22] MEDS: ONDANSETRON INJ 4 MG/2 ML VIAL IV PUSH (19:52)
--- NOTE | 2024-03-22 20:08 | PC.NURSE ---
Pt resting comfortably in stretcher. Nausea has improved after Zofran. Pt refused pain medication.
[2024-03-22 20:11] LABS: Basophils Percent Auto 0.8 % (0.0-1.0); Eosinophils Percent Auto 3.3 % (1.0-6.0); Hematocrit 36.9 % (35.0-49.0); Hemoglobin 11.7 g/dL (12.0-15.0); Immature Granulocyte Absolute 0.04 K/mm3 (0.00-0.00); Immature Granulocyte Percent A 0.3 % (0.0-0.0); Lymphocytes Absolute Auto 1.84 K/mm3 (1.10-4.50); Lymphocytes Percent Auto 15.2 % (18.0-42.0); Mean Corpuscular HGB Conc 31.7 g/dL (32-36); Mean Corpuscular Hemoglobin 22.9 pg (27.0-31.0); Mean Corpuscular Volume 72.2 fL (78.0-102.0); Monocytes Absolute Auto 1.13 K/mm3 (0.10-0.90); Monocytes Percent Auto 9.3 % (2.0-11.0); Neutrophils Absolute Auto 8.59 K/mm3 (1.70-7.20); Neutrophils Percent Auto 71.1 % (50.0-70.0); Platelet Count Result 459 K/mm3 (150-420); Red Blood Count 5.11 M/mm3 (4.20-5.40); Red Cell Distribution Width 15.9 % (11.6-14.4); White Blood Count 12.1 K/mm3 (4.8-10.8)
--- NOTE | 2024-03-22 20:22 | PC.NURSE ---
Pt stated that she is in a lot more pain now and feels the worst she has ever felt. Addressed w/ nurse and physician.
[2024-03-22 20:23] LABS: Urine Pregnancy Test Negative
[2024-03-22 20:24] LABS: Pregnancy On Board Control Positive
[2024-03-22 20:28] LABS: Alanine Aminotransferase 164 U/L (14-59); Albumin Level 3.2 g/dL (3.4-5.0); Alkaline Phosphatase 153 U/L (46-116); Anion Gap 8 mmol/L (4-12); Aspartate Amino Transferase 27 U/L (15-37); Bilirubin,Total 0.3 mg/dL (0.00-1.00); Blood Urea Nitrogen 5 mg/dL (7-18); CRP 0.7 mg/dL (0.0-0.9); Calcium 8.3 mg/dL (8.5-10.1); Carbon Dioxide 27 mmol/L (21-32); Chloride 106 mmol/L (98-108); Estimated CRCL calculation 110 ml/min; Estimated Glomerular Filt Rate > 60; Glucose 98 mg/dL (70-99); Osmolality Calculated 289 mOsm/kg (285-295); Potassium 3.4 mmol/L (3.5-5.1); Sodium 141 mmol/L (136-145); Total Protein 6.7 g/dL (6.4-8.2)
[2024-03-22] MEDS: MORPHINE SULFATE (*CRX) 4 MG/ML INJ IV PUSH (20:34)
--- NOTE | 2024-03-22 20:52 | PC.NURSE ---
Pt complaining of chest heaviness after receiving morphine. ERP notified. Pt placed on heart monitor. Normal sinus rhythm.
--- NOTE | 2024-03-22 21:22 | PC.NURSE ---
Pt returned from CT. States that her pain had gone down completely after the morphine but feels like it is starting to go up again. States that it is now a 3 or 4. She also states that she feels like her swelling has increased. Pt has been offered ice pack numerous times, but does not want to use one. ERP notified of pain and swelling. He is putting in a new order for meds. Pt's father at bedside.
[2024-03-22] MEDS: KETOROLAC 15 MG/ML VIAL (*BKC) IV PUSH (21:30)
--- NOTE | 2024-03-22 21:48 | PC.NURSE ---
[id number] Called [facility]. Spoke to Dulce Maria to request consult with OMFS and transfer. Asked CT to push images to [facility].
[2024-03-22] MEDS: PIPERACILLN/TAZ 3.375GM/NS50ML 3.375 GM/50 ML BAG IVPB (21:53)
--- NOTE | 2024-03-22 22:00 | PC.NURSE ---
gave pt small cup of ice water w/ oral swabs upon pt and nurse request
--- NOTE | 2024-03-22 22:11 | PC.NURSE ---
[id number] Dulce Maria from [facility] called. They have not received CT. Spoke with Bill from radiology. He said that they will push the films again.
--- NOTE | 2024-03-22 23:06 | PC.NURSE ---
Spoke to KENTRELL Wetzel. Pt assigned to Room 203. Floor will call if they have questions.
--- NOTE | 2024-03-22 23:38 | ADMGEN ---
This patient, Marita Shell, was admitted to 2nd Floor Room 203-1. Patient oriented to hospital policies and general routines including ID bracelet, bed and alarms, visiting hours, pain management, procedures, bathroom and other care routines, personal items, smoking policy, room service/diet, and visiting hours. Information on how to activate the Rapid Response Team has been discussed. Patient are encouraged to report perceived risks to care and to ask questions if they do not understand what they are told or what they should do.
[2024-03-23] VITALS (8 sets, daily range): BP systolic 104–140; BP diastolic 70–95; PULSE 87–115; RESP 14–18; TEMP 36.9–37.8; O2SAT 97–99
[2024-03-23] MEDS: MORPHINE SULFATE (*CRX) 2 MG/ML INJ IV PUSH ×2 (03:27→11:37)
[2024-03-23] MEDS: PIPERACILLN/TAZ 3.375GM/NS50ML 3.375 GM/50 ML BAG IVPB (05:16)
[2024-03-23] MEDS: HYDROcodone/acetaminophen (*CRX) 5-325 MG TABLET 1 TAB PO ×2 (06:50→21:11)
--- NOTE | 2024-03-23 06:58 | PC.NURSE ---
Mary Ann called asking about what kind of diet pt could have; Dr. Grimes notified and he said he would put a diet order in for patient.
[2024-03-23 08:18] LABS: Hematocrit 35.5 % (35.0-49.0); Hemoglobin 11.6 g/dL (12.0-15.0); Mean Corpuscular HGB Conc 32.7 g/dL (32-36); Mean Corpuscular Hemoglobin 23.4 pg (27.0-31.0); Mean Corpuscular Volume 71.7 fL (78.0-102.0); Mean Platelet Volume 9.1 fl (9.2-11.8); Platelet Count Result 460 K/mm3 (150-420); Red Blood Count 4.95 M/mm3 (4.20-5.40); Red Cell Distribution Width 16.1 % (11.6-14.4); White Blood Count 13.5 K/mm3 (4.8-10.8)
[2024-03-23 08:37] LABS: Alanine Aminotransferase 163 U/L (14-59); Alkaline Phosphatase 161 U/L (46-116); Anion Gap 8 mmol/L (4-12); Aspartate Amino Transferase 34 U/L (15-37); Bilirubin,Total 0.8 mg/dL (0.00-1.00); Blood Urea Nitrogen 4 mg/dL (7-18); Calcium 8.3 mg/dL (8.5-10.1); Carbon Dioxide 26 mmol/L (21-32); Chloride 103 mmol/L (98-108); Estimated CRCL calculation 103 ml/min; Estimated Glomerular Filt Rate > 60; Glucose 110 mg/dL (70-99); Osmolality Calculated 281 mOsm/kg (285-295); Potassium 3.2 mmol/L (3.5-5.1); Sodium 137 mmol/L (136-145); Total Protein 6.7 g/dL (6.4-8.2)
[2024-03-23 08:40] LABS: Lactic Acid Reflex 1.3 mmol/L (0.4-2.0)
[2024-03-23] MEDS: SODIUM CHLORIDE 0.9% IV 1,000 ML 75 ML IV CONT (09:31)
[2024-03-23] MEDS: ENOXAPARIN 40 MG/0.4 ML SYRINGE SUB-Q (09:32)
[2024-03-23] MEDS: VANCOMYCIN 2,000 MG/NS 500 ML 2,000 MG/500 ML BAG 250 MG IVPB (09:35)
[2024-03-23] MEDS: AMPICILLIN SULB 3 GM/NS 100 ML 3 GM/100 ML VIAL IVPB ×3 (11:23→20:27)
[2024-03-23] MEDS: IBUPROFEN 400 MG TABLET PO (12:51)
--- NOTE | 2024-03-23 15:04 | PM.IMHP ---
H&P: HPI History of Present Illness Date/Time: 03/23/24 15:04 Chief Complaint: Left facial swelling/dental pain Narrative: Patient is a 24-year-old female who had presented to the emergency department earlier in the afternoon due to severe dental pain with left-sided facial swelling has known history of dental abscess with plan for tooth extraction. Patient was discharged home Augmentin oral however returned due to increasing swelling and pain. CT facial showed mm odontogenic abscess along the left maxilla, likely extending from the root of the left second maxillary premolar. There is moderate left maxillary mucosal thickening and significant overlying soft tissue swelling. Patient with leukocytosis and severe dental pain failed outpatient oral antibiotics. Patient denied any chest pain, shortness a breath, nausea, vomiting, dizziness but did report fever and chills at home. The ER physician had spoke with ENT at [facility] no need for transfer at this time unless no improvement with IV antibiotics. Patient was then admitted to the medical unit for further evaluation and treatment. Patient had been placed on Zosyn IV overnight was found to be tachycardic, temperature of a 100?, worsening leukocytosis he even after administration of antibiotics and patient reported swelling had worsened. Initiated sepsis but workup initiated vancomycin. Review of Systems Review of Systems: All systems reviewed & are unremarkable except as noted in HPI and below PMFSH Past Medical History Medical History Anemia History of psychiatric hospitalization Rash Suicide attempt by overdose Surgical History Surgical History H/O oral surgery by overdose Family History Family History Mother Healthy adult Father Healthy adult Grandparent Lung cancer Social History Social History Years smoked: 3 Smoking status: Never smoker Tobacco type: e-cigarettes/vaping Second hand tobacco smoke exposure: No Alcohol intake: never Substance use: never Substance use type: does not use Do You Feel Safe in your Home?: Yes Lack of Transportation: No Lack of Food: Never True Current Housing: I Have Housing Concerned About Future Housing: No Difficulty Paying Gas/Electric Bills: No Difficulty Paying for Meds: No Currently Unemployed: No Education: High School Diploma/GED Difficulty w/ Childcare or Family Care: No Living arrangements: with family Additional living arrangements comments: with mother Occupation/Education: occupation Additional occupation/education comments: [employer] Gender identity (if verbalized by the patient): Female Spiritual care concerns: No Meds Home Medications and Allergies Home Medications Medication Instructions Recorded Confirmed Type amoxicillin 875 mg-potassium 1 tablet PO Q12H #10 tabs 03/22/24 03/22/24 Rx clavulanate 125 mg tablet meloxicam 15 mg tablet 15 mg PO DAILY #10 tabs 03/22/24 03/22/24 Rx Allergies Allergy/AdvReac Type Severity Reaction Status Date / Time No Known Allergies Allergy Verified 03/22/24 19:18 Vital Signs Vital Signs - 24 hr 03/22/24 19:14 03/22/24 20:45 03/22/24 21:53 Temperature 97.6 F Pulse Rate 96 97 Respiratory Rate 18 Blood Pressure 130/84 135/85 133/79 Pulse Oximetry 98 98 99 Oxygen Delivery Room Air 03/22/24 22:00 03/22/24 22:15 03/22/24 22:30 Temperature Pulse Rate 95 104 H 100 Respiratory Rate Blood Pressure 131/63 114/87 Pulse Oximetry 99 99 97 Oxygen Delivery 03/22/24 22:45 03/22/24 23:27 03/22/24 23:53 Temperature 98.8 F Pulse Rate 92 92 Respiratory Rate 16 Blood Pressure 119/77 119/77 Pulse Oximetry 97 97 99 Oxygen Deliv
[2024-03-23] MEDS: IBUPROFEN 400 MG TABLET 800 MG PO (17:50)
[2024-03-23] MEDS: VANCOMYCIN 1,250 MG/NS 250 ML 1,250 MG/250 ML BAG 166.67 MG IVPB (21:05)
[2024-03-24] VITALS (8 sets, daily range): BP systolic 118–146; BP diastolic 68–85; PULSE 65–104; RESP 14–18; TEMP 36.8–37.3; O2SAT 97–100
--- NOTE | 2024-03-24 | PC.NURSE ---
Patient has had 3 episodes of brown diarrhea. Patient states that she was having diarrhea for a week along with a low grade fever before coming to the hospital.
--- NOTE | 2024-03-24 00:30 | PC.NURSE ---
Patient said she feels a hard knot inside her left cheek now. When looked at area, noted a matamoros area. Patient taking pain meds as ordered (Ibuprofen and Marshall) and says the combination of the two are helping the pain. Patient given warm blanket to lay on her cheek for comfort. Call light in reach.
[2024-03-24] MEDS: IBUPROFEN 400 MG TABLET 800 MG PO ×3 (01:30→17:34)
[2024-03-24] MEDS: HYDROcodone/acetaminophen (*CRX) 5-325 MG TABLET 1 TAB PO ×2 (01:31→05:29)
[2024-03-24] MEDS: AMPICILLIN SULB 3 GM/NS 100 ML 3 GM/100 ML VIAL IVPB ×2 (02:52→08:40)
[2024-03-24 05:24] LABS: Hematocrit 32.5 % (35.0-49.0); Hemoglobin 10.3 g/dL (12.0-15.0); Mean Corpuscular HGB Conc 31.7 g/dL (32-36); Mean Corpuscular Hemoglobin 23.1 pg (27.0-31.0); Mean Corpuscular Volume 72.9 fL (78.0-102.0); Mean Platelet Volume 9.1 fl (9.2-11.8); Platelet Count Result 374 K/mm3 (150-420); Red Blood Count 4.46 M/mm3 (4.20-5.40); Red Cell Distribution Width 16.2 % (11.6-14.4); White Blood Count 10.4 K/mm3 (4.8-10.8)
--- NOTE | 2024-03-24 05:25 | PC.NURSE ---
Patient says the area in her mouth is now draining. Patient holding washcloth to area. Serosanguineous drainage noted. Area flushed with NS and patient given NS soaked gauze to place in mouth on area. PRN Clarks given as requested. Call light in reach.
[2024-03-24 05:35] LABS: Alanine Aminotransferase 128 U/L (14-59); Albumin Level 2.6 g/dL (3.4-5.0); Alkaline Phosphatase 141 U/L (46-116); Anion Gap 7 mmol/L (4-12); Aspartate Amino Transferase 25 U/L (15-37); Bilirubin,Total 0.5 mg/dL (0.00-1.00); Blood Urea Nitrogen 3 mg/dL (7-18); Calcium 8.3 mg/dL (8.5-10.1); Carbon Dioxide 27 mmol/L (21-32); Chloride 107 mmol/L (98-108); Estimated CRCL calculation 119 ml/min; Estimated Glomerular Filt Rate > 60; Glucose 96 mg/dL (70-99); Osmolality Calculated 288 mOsm/kg (285-295); Potassium 3.3 mmol/L (3.5-5.1); Sodium 141 mmol/L (136-145); Total Protein 5.9 g/dL (6.4-8.2)
--- NOTE | 2024-03-24 05:54 | PC.NURSE ---
No further diarrhea noted.
--- NOTE | 2024-03-24 08:26 | PM.IMPN ---
Progress Note: A&P Assessment and Plan (1) Sepsis without septic shock: Code(s): A41.9 - Sepsis, unspecified organism Status: Acute Assessment and Plan: 03/24/24: secondary to dental abscess patient meeting sepsis criteria with white blood cell count of 12.1, heart rate of 102-115, known source of infection of a dental abscess, febrile with T-max of 100.0. Patient's heart rate improved with IV fluids and fever improved with dose of ibuprofen while in the ED. She was then hemodynamically stable. She was also given a dose of Zosyn while in the ED. Lactic acid was checked and was 1.3 blood cultures were obtained and are pending dental abscess culture was obtained and pending CRP was within normal limits of 0.7 Antibiotics changed to Meropenem and Vancomycin for broader coverage per ENT at [facility] in [place] white blood cell count today is within normal limits at 10.4, she is afebrile, heart rate normalized (2) Dental abscess: Code(s): K04.7 - Periapical abscess without sinus Status: Acute Assessment and Plan: 03/24/24: face CT from 03/22/2024 shown a 9 mm odontogenic abscess along the left maxilla likely extending from the root of the left 2nd maxillary premolar, there is moderate left maxillary mucosal thickening and significant overlying soft tissue swelling, extensive periodontal disease of the maxillary arch patient was initially given a dose of Zosyn and then switched to Unasyn and vancomycin continue pain and nausea control blood and abscess culture pending ENT was initially called at [place] by Dr. Dunham in the ER and they said there is no need for transfer at this time unless the abscess grows or there is no improvement with IV antibiotics which was on 03/22/24. facial CT today shown soft tissue swelling lateral to the left orbit and left maxillary sinus which may be a small collection with surrounding fat stranding, no facial fracture. Fluid collection measuring 3.9 x 0.5 cm ENT reconsulted today at [facility] and imaging was reviewed by ENT services who does not see a drainable abscess on today's CT and considering that the swelling is worse they suggest broadening antibiotics with infectious disease pharmacist. If swelling worsens then we will need to get another CT scan to assess for drainable abscess. No need for transfer to tertiary hospital at this time. Plan is to switch to Meropenem and Vancomycin for broader coverage. white blood cell count down to 10.4, T-max 99.3? in the past 24 hours. Time Spent With Patient Time with patient: 25 - 35 minutes Subjective Date/time seen: 03/24/24 08:26 Interval history: Interval history: This is a 24-year-old female who presented to the emergency room on 03/23/2024 with swelling/ dental pain. She was placed on Augmentin at an outside facility however failed oral antibiotics and presented here for IV antibiotics. Facial CT showed a 9 mm odontogenic abscess along the left maxilla likely extending from the root of the left 2nd maxillary premolar, there is moderate left maxillary mucosal thickening and significant overlying soft tissue swelling, extensive periodontal disease of the maxillary arch. Initial labs shown a white blood cell count of 12.1, hemoglobin 11.7, platelet count was 459, potassium 3.4, ALT 164, alk-phos 153. Urinary test was Negative. Blood cultures were obtained and are pending. Patient was given 400 mg of ibuprofen, started on vancomycin and Unasyn. Subjective: Patient denies any fever, chills, vomiting, diarrhea, abdominal pain, chest pain, shortness a breath. Patient endorses nausea now that the abscess opened up and is draining. She states she has a bad taste in her mouth. She also reports that her pain is well controlled at this time. Labs and imaging reviewed. Review of Systems Review of Systems: All systems reviewed & are unremarkable except as noted in HPI an
[2024-03-24] MEDS: VANCOMYCIN 1,250 MG/NS 250 ML 1,250 MG/250 ML BAG 166.67 MG IVPB (09:21)
[2024-03-24] MEDS: MEROPENEM 1 GM/NS 100 ML 1 GM/100 ML BAG IVPB (13:15)
[2024-03-24] MEDS: dexAMETHasone SOD PHOS INJ 10 MG/ML 1 ML VIAL IV PUSH (18:48)
--- NOTE | 2024-03-24 19:50 | PC.NURSE ---
Patient complaining of feeling raspy . Wheezing auscultated throughout posteriorly. Patient complaining of it being hard to take a deep breath. Also complaining of difficulty in swallowing. Notified Damari Stuart NP and she requested that ERP be notified to come assess patient. Patient in no obvious distress. Call light in reach.
--- NOTE | 2024-03-24 19:55 | PC.NURSE ---
ERP Dr Steen notified of patient's change in condition and of STUNT DRIVER requesting he assess patient and then call STUNT DRIVER. ERP will come see patient.
[2024-03-24 20:21] LABS: Vancomycin Trough 5.2 ug/mL (10.0-15.0)
--- NOTE | 2024-03-24 20:29 | PC.NURSE ---
Anthony, Pharmacist at [facility], notified that Patient's vancomycin trough is 5.2. Pharmacist to look at labs.
--- NOTE | 2024-03-24 20:30 | PC.NURSE ---
Dr Steen assessed and spoke with patient and stated that he is not concerned about patient's airway being affected. He then spoke with ETCHED CIRCUIT PROCESSOR about his findings. No new orders received.
--- NOTE | 2024-03-24 20:38 | PM.IMPN ---
Progress Note: A&P Assessment and Plan (1) Dysphagia: Code(s): R13.10 - Dysphagia, unspecified Status: Acute Plan Dysphagia-- no obvious dysphagia noted. The patient was able to have a den and during my exam was and able to swallow liquids without any difficulty. Extensive dental caries with a dental genic abscess about the 2nd premolar measuring 9 mm along with extensive periodontal disease along the left maxilla with swelling of left cheek which extends to left periorbital region and down to the mandible. No stridor noted. No hoarseness of voice noted. normal respiratory rate with an oxygen saturation of 99% on room air. No respiratory distress noted. No evidence of upper airway obstruction at this point. If she has worsening dysphagia or difficulty breathing would recommend a CT of the neck with IV contrast. Bronchospasm patient has a history of vaping and has a prior history of bronchitis. Currently she does not complain of any cough, sputum production or shortness of breath. She has occasional rhonchi. will continue to monitor her respiratory status. Time Spent With Patient Time: Time with patient: 15 - 25 minutes Subjective Date/time seen: 03/24/24 20:38 Interval history: 24-year-old female was admitted for parental genic abscess associated with the maxillary 2nd premolar. In addition the patient was noted to have extensive periodontal disease along the left maxilla along with swelling of the left cheek extending to left periorbital region. The patient was initially treated with vancomycin and ampicillin. Today her antibiotics were switched to Zosyn. I was called for -- dysphagia which started 2 hours ago. The patient ate the den a without any difficulty. The patient is able to swallow fluids. The patient feels that she is unable to swallow her saliva. No shortness of breath. No change in voice. No stridor. Patient is afebrile. She has a respiratory rate of 18 and oxygen saturation of 99% on room air. -- Decrease in swelling of her left cheek and left cheek periorbital region. Review of Systems Constitutional: Constitutional: Reports as per HPI ENT: Comments: Swelling of left cheek and left periorbital region extending down to the mandible no hoarseness or stridor Cardiovascular: Cardiovascular: Reports as per HPI and Reports no additional cardiovascular complaints Respiratory: Respiratory: Reports as per HPI and Reports no additional respiratory complaints Comments: denies shortness of breath Gastrointestinal: Gastrointestinal: Reports as per HPI and Reports no additional gastrointestinal complaints Genitourinary: Genitourinary: Reports no additional female genitourinary complaints and Reports as per HPI Musculoskeletal: Musculoskeletal: Reports no additional musculoskeletal complaints and Reports as per HPI Integumentary/Breasts: Skin/Breast: Reports system reviewed and no additional complaints, except as docu and Reports as per HPI Neurologic: Reports system reviewed and no additional complaints, except as documented and Reports as per HPI Psychiatric: Psychiatric: Reports no additional psychiatric complaints and Reports as per HPI Endocrine: Endocrine: Reports no additional endocrine complaints Allergic/Immunologic: Allergic/Immunologic: Reports no additional allergic/immunologic complaints and Reports as per HPI Exam Narrative: respiratory rate of 18. Oxygen saturation of 99% on room air. Patient is afebrile. Const: General: cooperative, healthy appearing, comfortable and no acute distress HENMT: Head: normal to inspection, normocephalic and atraumatic Ears: hearing grossly normal bilaterally and external ears normal Face/Nose/Sinus: Normal external nose present and Normal nares present Face and sinus: normal facial exam ( Left cheek swelling extends up to the left periorbital region and Mandib) Mouth: Yes Normal oral and palatal mucosa p
[2024-03-24 20:52] LABS: Toxigenic C. Diff NEGATIVE (NEGATIVE)
--- NOTE | 2024-03-24 20:57 | PC.NURSE ---
Thompson Stuart NP, notified that patient's stool was negative for C-Diff. New order received for Imodium prn.
[2024-03-24] MEDS: VANCOMYCIN 1,750 MG/NS 500 ML 1,750 MG/500 ML BAG 250 MG IVPB (21:20)
[2024-03-25] VITALS: BP 139/80; PULSE 86; RESP 16; TEMP 36.9; O2SAT 100
[2024-03-25] MEDS: MEROPENEM 1 GM/NS 100 ML 1 GM/100 ML BAG IVPB ×2 (00:01→08:11)
[2024-03-25 04:00] VITALS: BP 142/87; PULSE 88; RESP 16; TEMP 37.2; O2SAT 99
[2024-03-25 05:22] LABS: Hematocrit 35.3 % (35.0-49.0); Mean Corpuscular HGB Conc 31.2 g/dL (32-36); Mean Corpuscular Hemoglobin 22.7 pg (27.0-31.0); Mean Corpuscular Volume 72.9 fL (78.0-102.0); Mean Platelet Volume 9.3 fl (9.2-11.8); Platelet Count Result 468 K/mm3 (150-420); Red Blood Count 4.84 M/mm3 (4.20-5.40); Red Cell Distribution Width 15.9 % (11.6-14.4); White Blood Count 9.5 K/mm3 (4.8-10.8)
[2024-03-25] MEDS: IBUPROFEN 400 MG TABLET 800 MG PO (05:29)
[2024-03-25] MEDS: VANCOMYCIN 1,750 MG/NS 500 ML 1,750 MG/500 ML BAG 250 MG IVPB ×2 (05:29→12:45)
[2024-03-25 05:36] LABS: Alanine Aminotransferase 114 U/L (14-59); Albumin Level 2.7 g/dL (3.4-5.0); Alkaline Phosphatase 155 U/L (46-116); Anion Gap 9 mmol/L (4-12); Aspartate Amino Transferase 15 U/L (15-37); Bilirubin,Total 0.2 mg/dL (0.00-1.00); Blood Urea Nitrogen 4 mg/dL (7-18); Calcium 8.9 mg/dL (8.5-10.1); Carbon Dioxide 25 mmol/L (21-32); Chloride 108 mmol/L (98-108); Estimated CRCL calculation 119 ml/min; Estimated Glomerular Filt Rate > 60; Glucose 173 mg/dL (70-99); Osmolality Calculated 294 mOsm/kg (285-295); Potassium 4.2 mmol/L (3.5-5.1); Sodium 142 mmol/L (136-145); Total Protein 6.6 g/dL (6.4-8.2)
--- NOTE | 2024-03-25 05:54 | PC.NURSE ---
Patient has offered no further complaints of feeling raspy or being hard to breath. She ate a few soft khmer fries without difficulty approximately 2300. Ibuprofen given @ 0529 for complaint of left mouth pain @ 3. Patient states that she has slept well tonight. No diarrhea this shift. 2 scant pudding consistency BM's early in shift. Call light in reach.
[2024-03-25 07:55] VITALS: BP 126/70; PULSE 68; RESP 15; TEMP 36.9; O2SAT 98
[2024-03-25 08:10] LABS: CRP 4.5 mg/dL (0.0-0.9)
--- NOTE | 2024-03-25 11:47 | PM.DS ---
DS: Admitting Diagnosis Discharge Date 03/25/24 Admitting Diagnosis sepsis dental abscess DS: Discharge Diagnosis Discharge Diagnosis (1) Sepsis without septic shock: Code(s): A41.9 - Sepsis, unspecified organism Status: Acute (2) Dental abscess: Code(s): K04.7 - Periapical abscess without sinus Status: Acute DS: Summary Hospital Course Reason for hospitalization: sepsis dental abscess Hospital Course: This is a 24-year-old female who presented to the emergency room on 03/23/2024 with swelling/ dental pain. She was placed on Augmentin at an outside facility however failed oral Augmentin and presented here for IV antibiotics. Facial CT showed a 9 mm odontogenic abscess along the left maxilla likely extending from the root of the left 2nd maxillary premolar, there is moderate left maxillary mucosal thickening and significant overlying soft tissue swelling, extensive periodontal disease of the maxillary arch. Initial labs shown a white blood cell count of 12.1, hemoglobin 11.7, platelet count was 459, potassium 3.4, ALT 164, alk-phos 153. Urinary test was Negative. Blood cultures were obtained and are pending. Patient was given 400 mg of ibuprofen, started on vancomycin and Unasyn. patient did have some difficulty with swelling and was noted to bilateral wheezing to her lungs through the night and was given a dose dexamethasone 10 mg IV push. I did have the ED doctor come up to see her last night and she demonstrated safe swallowing and was not in any acute distress. She does admit to vaping which can explain her wheezing last night. Today her facial swelling is much improved. She only has a small amount of facial swelling over her cheek /sinus. Swelling went down in her neck and around her left eye. She denies any new complaints today. We can go ahead and transition her over to clindamycin and doxycycline oral for another 12 days. She will then need to follow up with her primary care physician and her dentist. I also prescribed a Medrol Dosepak considering the steroid made significant difference in her swelling. Blood and wound cultures are still pending however are showing no growth to date on preliminary read. We will continue to follow these cultures. She is stable for discharge at this time. final diagnosis: sepsis, dental abscess Status at Discharge Cognitive/behavioral status at discharge: alert oriented x4 Functional status at discharge: independent ambulation Overall status at discharge: patient is progressing back to baseline Time Spent with Patient Time attestation: Total time spent providing and/or coordinating discharge services: Time spent: Greater than 30 minutes Exam Narrative: General: In no acute distress Cardiac: Normal S1 and S2. RRR, No murmur, gallops or friction rubs, peripheral pulses intact. Respiratory: Lungs clear to auscultation, no adventitious lung sounds , currently on room, airway patent Gastrointestinal: soft, non-distended, non-tender, normoactive bowel sounds. : voiding without difficulty. Skin: facial swelling improved today, small amount of swelling left cheek, pink and warm to the touch Neuro: Alert and oriented x4 DS: Data Data Completed and Pending Completed studies during hospitalization: face CT x2 Pending studies at discharge: blood and wound cultures Labs on day of discharge: Labs from last 24 hours 03/25/24 03/24/24 03/24/24 05:05 20:05 20:01 WBC 9.5 RBC 4.84 Hgb 11.0 L Hct 35.3 MCV 72.9 L MCH 22.7 L MCHC 31.2 L RDW 15.9 H Plt Count 468 H MPV 9.3 Sodium 142 Potassium 4.2 Chloride 108 Carbon Dioxide 25 Anion Gap 9 BUN 4 L Creatinine 0.61 Estim Creat Clear Calc 119 Estimated GFR > 60 Glucose 173 H Calculated Osmolality 294 Calcium 8.9 Total Bilirubin 0.2 AST 15 ALT 114 H Alkaline Phosphatase 155 H C-Reactive Protein 4
[2024-03-25 12:00] VITALS: BP 144/92; PULSE 79; RESP 16; TEMP 37.7; O2SAT 98
--- NOTE | 2024-03-25 15:00 | PC.NURSE ---
Discharge instructions given to patient and patient voiced understanding. IV site removed prior to discharge. Personal belongings sent home with patient. Patient left unit in w/c and left hospital grounds in privately owned vehicle.
--- NOTE | 2024-03-26 08:58 | PC.NURSE ---
Discharge call back attempted, no answer
--- NOTE | 2024-03-30 10:33 | PC.NURSE ---
Discharge call back complete, no questions regarding dc instructions
== END 2024-03-25 15:00 | disposition home or self-care (01) ==
LOC: CHSED 22:53 → CHS2ND 23:23
PROVIDERS: Nurse Practitioner Family; Admitting Provider Internal Medicine; Emergency Provider Family Medicine; PCP Family Medicine; Visit Provider Nurse Practitioner Acute Care
DX: A41.9 Sepsis, unspecified organism (principal); K04.7 Periapical abscess without sinus; Z91.51 Personal history of suicidal behavior; Z87.891 Personal history of nicotine dependence
CPT/HCPCS: 36415; 70487; 80053; 80202; 81025; 83605; 85025; 85027; 86140; 87040; 87070; 87205; 87493; 96361; 96365; 96366; 96367; 96372; 96375; 96376; 99285; A9270; G0378; G0379; J0295; J1100; J1650; J1885; J2185; J2270; J2405; J2543; J3370; J7030; Q9967

== ENCOUNTER 2024-04-29 14:03 | Emergency (ER) | payer OTHER, SELFPAY ==
--- NOTE | ~2024-04-29 | US_ITS ---
EXAM: PELVIC ULTRASOUND HISTORY: AUB, csection 4 mo ago COMPARISON: 04/06/2023 FINDINGS: UTERUS: 8.3 x 4.0 x 5.7 cm. The uterus is anteverted and anteflexed. The endometrial complex measures 4.6 mm. Multiple linear striations are now identified within the uterus suggesting adenomyosis. In addition, an irregularly shaped echogenic focus within the lower uterine segment is identified, wi th trace vascularity, possibly perioperative. Free fluid within the cervix. A RIGHT OVARY: The right ovary is unremarkable in echogenicity and size measuring 3.0 x 1.2 x 1.6 cm. Arterial and venous flow are identified. LEFT OVARY: The left ovary is unremarkable in echogenicity and size measuring 3.5 x 2.0 x 1.5cm Both arterial and venous flow are identified. Free fluid is identified within the posterior cul-de-sac. IMPRESSION: Findings suggesting adenomyosis as detailed above. Findings within the lower uterine segment which may be perioperative in origin. Reviewed, dictated and finalized at location A. ER [facility]
[2024-04-29 14:55] VITALS: BP 135/80; PULSE 91; RESP 16; TEMP 36.9; O2SAT 100
--- NOTE | 2024-04-29 15:17 | ED.PREGNANCY ---
HPI - General Chief complaint: Vaginal Bleeding <Sil Kulkarni PA-C - Last Filed: 04/29/24 15:26> Stated complaint: vag bld, s/p 4 mos ago <Sil Kulkarni PA-C - Last Filed: 04/29/24 15:26> Time Seen by Provider: 04/29/24 15:17 <Sil Kulkarni PA-C - Last Filed: 04/29/24 15:26> Focused HPI: Patient is a 24 y/o female who presents to the ED with c/o vaginal bleeding. she reports she had a performed in November of this year. She has been having intermittent vaginal bleeding since then, but states it has been heavy at times with up to half dollar size clots. States she is concerned has been ongoing for so long. Her son had medical complications after and she has not had the time to get herself evaluated. She does report having intermittent lower abdominal cramping. Denies nausea, vomiting, fevers, dysuria, hematuria. Patient had previously seen an OBGYN in [place], [place], but is scheduled to see Dr. Ghosh tomorrow. GENERAL: Well-appearing, well-nourished, and in no acute distress. HEAD: Normocephalic, atraumatic. CHEST: Clear to auscultation. ?No respiratory distress. HEART: Regular rate and rhythm.? ABD: Mild TTP in lower abd, normoactive BS NEURO: ?Alert and oriented x3. Patient screened in triage and initial orders placed.? ?Additional care and disposition to be based upon?diagnostic testing and treatment. <Sil Kulkarni PA-C - Last Filed: 04/29/24 15:26> Source: patient <Sil Kulkarni PA-C - Last Filed: 04/29/24 15:26> Mode of arrival: ambulatory <Sil Kulkarni PA-C - Last Filed: 04/29/24 15:26> Limitations: no limitations <OLIVIA Lin Last Filed: 04/29/24 15:26> History of Present Illness HPI Narrative: per hpi <Angelica Sheth MD - Last Filed: 04/29/24 18:22> Related Data Allergies/Adverse reactions: Allergies Allergy/AdvReac Type Severity Reaction Status Date / Time No Known Allergies Allergy Verified 03/22/24 19:18 <OLIVIA Lin Last Filed: 04/29/24 15:26> Review of Systems Review of Systems: per hpi <Angelica Sheth MD - Last Filed: 04/29/24 18:22> PMFSH Past Medical History Medical History: Medical History Anemia History of psychiatric hospitalization Rash Suicide attempt by overdose <OLIVIA Lin Last Filed: 04/29/24 15:26> Surgical History Surgical History: Surgical History H/O oral surgery by overdose <OLIVIA Lin Last Filed: 04/29/24 15:26> Family History Family History: Family History Mother Healthy adult Father Healthy adult Grandparent Lung cancer <OLIVIA Lin Last Filed: 04/29/24 15:26> Social History Social History: Social History Years smoked: 3 Smoking status: Never smoker Tobacco type: e-cigarettes/vaping Second hand tobacco smoke exposure: No Alcohol intake: never Substance use: never Substance use type: does not use Do You Feel Safe in your Home?: Yes Lack of Transportation: No Lack of Food: Never True Current Housing: I Have Housing Concerned About Future Housing: No Difficulty Paying Gas/Electric Bills: No Difficulty Paying for Meds: No Currently Unemployed: No Education: High School Diploma/GED Difficulty w/ Childcare or Family Care: No Living arrangements: with family Additional living arrangements comments: with mother Occupation/Education: occupation Additional occupation/education comments: [employer] Gender identity (if verbalized by the patient): Female Spiritual care concerns: No <OLIVIA Lin Filed: 04/29/24 15:26> Exam Narrative: EXAMINATION OF ORGAN SYSTEMS/BODY AREAS: Constitutional: Vital signs per nursing GENERAL:[No acute distress, non-toxic appearing.] HEAD: Normal with no signs of head trauma. EYES: EOMI, conjunctiva normal ENT: Hearing grossly intact LUNGS: Nonlabored breathing. HEART: [Regular rate and rhythm] ABD: [Soft], [nontender to palpation] : Small amt of vaginal bleeding w/o hemorrhage EXT: Normal range of motion SKIN: [No rashes or lesions.] NEURO: [Alert and oriented x 3. No gross focal sensory or strength deficits.] PSYCH: Normal affect <Angelica Sheth MD - Last Filed: 04/29/24 18:22> Course Vital Signs Vital signs: Vital Signs Temperature 98.5 F 04/29/24 14:55 Pulse Rate 91 04/29/24 14:55 Respiratory Rate 16 04/29/24 14:55 Blood Pressure 135/80 04/29/24 14:55 Pulse Oximetry 100 04/29/24 14:55 Oxygen Delivery Room Air 04/29/24 14:55 Temperature 98.5 F 04/29/24 14:55 Pulse Rate 91 04/29/24 14:55 Respiratory Rate 16 04/29/24 14:55 Blood Pressure 135/80 04/29/24 14:55 Pulse Oximetry 100 04/29/24 14:55 Oxygen Delivery Room Air 04/29/24 14:55 <Sil Kulkarni PA-C - Last Filed: 04/29/24 15:26> Vital Signs Temperature 98.5 F 04/29/24 14:55 Pulse Rate 91 04/29/24 14:55 Respiratory Rate 16 04/29/24 14:55 Blood Pressure 135/80 04/29/24 14:55 Pulse Oximetry 100 04/29/24 14:55 Oxygen Delivery Room Air 04/29/24 14:55 Temperature 98.5 F 04/29/24 14:55 Pulse Rate 91 04/29/24 14:55 Respiratory Rate 16 04/29/24 14:55 Blood Pressure 135/80 04/29/24 14:55 Pulse Oximetry 100 04/29/24 14:55 Oxygen Delivery Room Air 04/29/24 14:55 <Angelica Sheth MD - Last Filed: 04/29/24 18:22> MDM - OB/Uterine Contractions MDM Narrative Medical decision making narrative: MSE by RALPH in triage. <Sil Kulkarni PA-C - Last Filed: 04/29/24 15:26> MSE by RALPH in triage. // Patient presenting with vaginal bleeding for months since her . Has follow-up with OB tomorrow, but wanted to make sure she was doing okay. Hemoglobin is stable thankfully, labs within acceptable limits, transvaginal ultrasound showing potential adenomyosis. Findings discussed with patient, return precautions provided, and I do feel she is stable for discharge with her follow-up tomorrow. <Angelica Sheth MD - Last Filed: 04/29/24 18:22> Lab Data Result diagrams: 04/29/24 16:28 04/29/24 16:28 <Sil Kulkarni PA-C - Last Filed: 04/29/24 15:26> Labs: Lab Results 04/29/24 Range/Units 16:28 WBC 9.1 (4.5-10.0) K/mm3 RBC 4.90 (4.2-5.4) M/mm3 Hgb 11.8 L (12.0-15.0) g/dL Hct 36.6 L (37.0-47.0) % MCV 74.7 L (80-100) fl MCH 24.1 L (26-34) pg MCHC 32.2 (32-36) g/dl RDW 16.8 H (11.5-14.5) % Plt Count 451 H (150-375) k/mm3 MPV 9.4 (7.4-10.4) fl Immature Gran % (Auto) 0.2 (0-0.5) % Neut % (Auto) 64.3 (45.5-73.1) % Lymph % (Auto) 26.1 (18.3-44.2) % [place] % (Auto) 7.2 (2.6-8.5) % Eos % (Auto) 1.1 (0-4.4) % Baso % (Auto) 1.1 (0.2-1.2) % Lymph # (Auto) 2.36 (0.9-3.2) K/mm3 [place] # (Auto) 0.7 H (0.1-0.6) K/mm3 Eos # (Auto) 0.1 (0-0.3) K/mm3 Baso # (Auto) 0.1 (0.0-0.1) K/mm3 Abs Immat Gran (auto) 0.02 (0.00-0.031) K/mm3 Absolute Neuts (auto) 5.8 (1.3-6.7) K/mm3 Absolute Nucleated RBC 0.000 (0.0-0.012) K/mm3 Nucleated RBC % 0.0 (0.0-0.2) % Platelet Estimate Slightly increased (Adequate) Hypochromasia 1+ Microcytosis 1+ (NORMAL) Schistocytes None seen PT 13.9 (11.1-14.7) Seconds INR 1.0 APTT 30.4 (22.3-36.8) Seconds Sodium 138 (137-145) mmol/L Potassium 3.6 (3.4-5.0) mmol/L Chloride 107 (98-107) mmol/L Carbon Dioxide 21 L (22-30) mmol/L Anion Gap 10 (4-12) mmol/L BUN 8 D (7-17) mg/dL Creatinine 0.60 L (0.7-1.0) mg/dL Estim Creat Clear Calc Not Reportable Estimated GFR > 60 (59 - ) Glucose 97 (65-110) mg/dL Calcium 9.3 (8.4-10.2) mg/dL Total Bilirubin 0.4 (0.2-1.3) mg/dL AST 28 (14-36) U/L ALT 36 H (6-35) U/L Alkaline Phosphatase 113 (38-126) U/L Total Protein 8.0 (6.3-8.2) g/dL Albumin 4.2 (3.5-5.1) g/dL Urine Color Red H (Yellow) Urine Appearance Turbid H (Clear) Urine pH TNP Ur Specific [place] TNP Urine Protein TNP Urine Glucose (UA) TNP Urine Ketones TNP Ur Blood (Man) TNP Urine Nitrate TNP Urine Bilirubin TNP Urine Urobilinogen TNP Leukocyte Esterase Rfl TNP Urine RBC >100 H (0-2) /hpf Urine WBC 11-20 H (0-3) /hpf Ur Squamous Epith Cells Few (Few) /hpf Urine Bacteria None seen /hpf Urine Casts 0-2 <Sil Kulkarni PA-C - Last Filed: 04/29/24 15:26> Lab Results 04/29/24 Range/Units 16:28 WBC 9.1 (4.5-10.0) K/mm3 RBC 4.90 (4.2-5.4) M/mm3 Hgb 11.8 L (12.0-15.0) g/dL Hct 36.6 L (37.0-47.0) % MCV 74.7 L (80-100) fl MCH 24.1 L (26-34) pg MCHC 32.2 (32-36) g/dl RDW 16.8 H (11.5-14.5) % Plt Count 451 H (150-375) k/mm3 MPV 9.4 (7.4-10.4) fl Immature Gran % (Auto) 0.2 (0-0.5) % Neut % (Auto) 64.3 (45.5-73.1) % Lymph % (Auto) 26.1 (18.3-44.2) % [place] % (Auto) 7.2 (2.6-8.5) % Eos % (Auto) 1.1 (0-4.4) % Baso % (Auto) 1.1 (0.2-1.2) % Lymph # (Auto) 2.36 (0.9-3.2) K/mm3 [place] # (Auto) 0.7 H (0.1-0.6) K/mm3 Eos # (Auto) 0.1 (0-0.3) K/mm3 Baso # (Auto) 0.1 (0.0-0.1) K/mm3 Abs Immat Gran (auto) 0.02 (0.00-0.031) K/mm3 Absolute Neuts (auto) 5.8 (1.3-6.7) K/mm3 Absolute Nucleated RBC 0.000 (0.0-0.012) K/mm3 Nucleated RBC % 0.0 (0.0-0.2) % Platelet Estimate Slightly increased (Adequate) Hypochromasia 1+ Microcytosis 1+ (NORMAL) Schistocytes None seen PT 13.9 (11.1-14.7) Seconds INR 1.0 APTT 30.4 (22.3-36.8) Seconds Sodium 138 (137-145) mmol/L Potassium 3.6 (3.4-5.0) mmol/L Chloride 107 (98-107) mmol/L Carbon Dioxide 21 L (22-30) mmol/L Anion Gap 10 (4-12) mmol/L BUN 8 D (7-17) mg/dL Creatinine 0.60 L (0.7-1.0) mg/dL Estim Creat Clear Calc Not Reportable Estimated GFR > 60 (59 - ) Glucose 97 (65-110) mg/dL Calcium 9.3 (8.4-10.2) mg/dL Total Bilirubin 0.4 (0.2-1.3) mg/dL AST 28 (14-36) U/L ALT 36 H (6-35) U/L Alkaline Phosphatase 113 (38-126) U/L Total Protein 8.0 (6.3-8.2) g/dL Albumin 4.2 (3.5-5.1) g/dL Urine Color Red H (Yellow) Urine Appearance Turbid H (Clear) Urine pH TNP Ur Specific [place] TNP Urine Protein TNP Urine Glucose (UA) TNP Urine Ketones TNP Ur Blood (Man) TNP Urine Nitrate TNP Urine Bilirubin TNP Urine Urobilinogen TNP Leukocyte Esterase Rfl TNP Urine RBC >100 H (0-2) /hpf Urine WBC 11-20 H (0-3) /hpf Ur Squamous Epith Cells Few (Few) /hpf Urine Bacteria None seen /hpf Urine Casts 0-2 <Angelica Sheth MD - Last Filed: 04/29/24 18:22> Discharge Plan Discharge Clinical Impression: Vaginal bleeding <Sil Kulkarni PA-C - Last Filed: 04/29/24 15:26> Patient Disposition: Home, Self-Care <Sil Kulkarni PA-C - Last Filed: 04/29/24 15:26> Condition: Stable <Sil Kulkarni PA-C - Last Filed: 04/29/24 15:26> Instructions: Menorrhagia (ED) <Sil Kulkarni PA-C - Last Filed: 04/29/24 15:26> Additional Instructions: Your blood level today was thankfully normal. Please follow up with the OBGYN; you can always return for any further issues. <iSl Kulkarin PA-C - Last Filed: 04/29/24 15:26> Prescriptions: No Action meloxicam 15 mg tablet 15 mg PO DAILY Qty: 10 0RF ibuprofen 400 mg Tablet 800 mg PO Q6H PRN (Reason: Mild Pain (1-3) Or Fever) Qty: 30 0RF doxycycline hyclate 100 mg tablet 100 mg PO DAILY Qty: 12 0RF clindamycin HCl 300 mg capsule 300 mg PO Q8H 12 Days Qty: 36 0RF clindamycin HCl 150 mg capsule 150 mg PO Q8H 12 Days Qty: 36 0RF methylprednisolone [Medrol (Kade)] 4 mg tablets,dose pack See Rx Instructions .ROUTE .COMPLEX Qty: 21 0RF Rx Instructions: orally per package directions <Sil Kulkarni PA-C - Last Filed: 04/29/24 15:26> Follow-up/Referrals: Jesús,Valeri Quintero MD [Primary Care Provider] - <Sil Kulkarni PA-C - Last Filed: 04/29/24 15:26>
[2024-04-29 16:54] LABS: Basophils Absolute Auto 0.1 K/mm3 (0.0-0.1); Basophils Percent Auto 1.1 % (0.2-1.2); Eosinophils Absolute Auto 0.1 K/mm3 (0-0.3); Eosinophils Percent Auto 1.1 % (0-4.4); Hematocrit 36.6 % (37.0-47.0); Hemoglobin 11.8 g/dL (12.0-15.0); Immature Granulocyte Absolute 0.02 K/mm3 (0.00-0.031); Immature Granulocyte Percent A 0.2 % (0-0.5); Lymphocytes Absolute Auto 2.36 K/mm3 (0.9-3.2); Lymphocytes Percent Auto 26.1 % (18.3-44.2); Mean Corpuscular HGB Conc 32.2 g/dl (32-36); Mean Corpuscular Hemoglobin 24.1 pg (26-34); Mean Corpuscular Volume 74.7 fl (80-100); Mean Platelet Volume 9.4 fl (7.4-10.4); Monocytes Absolute Auto 0.7 K/mm3 (0.1-0.6); Monocytes Percent Auto 7.2 % (2.6-8.5); Neutrophils Absolute Auto 5.8 K/mm3 (1.3-6.7); Neutrophils Percent Auto 64.3 % (45.5-73.1); Platelet Count Result 451 k/mm3 (150-375); Red Cell Distribution Width 16.8 % (11.5-14.5); White Blood Count 9.1 K/mm3 (4.5-10.0)
[2024-04-29 17:04] LABS: Alanine Aminotransferase 36 U/L (6-35); Albumin Level 4.2 g/dL (3.5-5.1); Alkaline Phosphatase 113 U/L (38-126); Anion Gap 10 mmol/L (4-12); Aspartate Amino Transferase 28 U/L (14-36); Bacteria Urine None Seen /hpf; Bilirubin,Total 0.4 mg/dL (0.2-1.3); Blood Urea Nitrogen 8 mg/dL (7-17); Calcium 9.3 mg/dL (8.4-10.2); Carbon Dioxide 21 mmol/L (22-30); Chloride 107 mmol/L (98-107); Estimated Glomerular Filt Rate > 60; Glucose 97 mg/dL (65-110); Non Pathogenic Casts 0-2; Potassium 3.6 mmol/L (3.4-5.0); RBC Urine >100 /hpf (0-2); Sodium 138 mmol/L (137-145); Squamous Epithelial Cell Urine Few /hpf (Few)
[2024-04-29 17:05] LABS: Prothrombin Time 13.9 Seconds (11.1-14.7)
[2024-04-29 17:06] LABS: Partial Thromboplastin Time 30.4 Seconds (22.3-36.8)
[2024-04-29 17:09] LABS: Hypochromasia 1+; Microcytosis 1+ (NORMAL)
[2024-04-29 17:10] LABS: Platelet Estimate Slightly Increased (Adequate); Schistocytes None Seen
[2024-04-29 17:13] LABS: Add Urine Microscopic? YES; Appearance Urine Turbid (Clear); Color Urine Red (Yellow)
== END 2024-04-29 17:54 | disposition home or self-care (01) ==
PROVIDERS: Physician Assistant; Emergency Provider Emergency Medicine; PCP Family Medicine
DX: N93.9 Abnormal uterine and vaginal bleeding, unspecified (principal); D64.9 Anemia, unspecified; F17.290 Nicotine dependence, other tobacco product, uncomplicated
CPT/HCPCS: 36415; 76830; 76856; 80053; 81001; 85025; 85610; 85730; 87086; 99284

== ENCOUNTER 2024-04-30 13:28 | Emergency (ER) | payer OTHER, SELFPAY ==
[2024-04-30 13:33] VITALS: BP 141/86; PULSE 88; RESP 16; TEMP 36.6; O2SAT 100
--- NOTE | 2024-04-30 15:03 | ED_ITS ---
HPI - Female Genitourinary General Chief complaint: Vaginal Bleeding <Shamika Charles APRN - Last Filed: 04/30/24 15:06> Stated complaint: vaginal bleeding <Shamika Charles APRN - Last Filed: 04/30/24 15:06> Time Seen by Provider: 04/30/24 14:55 <Shamika Charles APRN - Last Filed: 04/30/24 15:06> Patient is a 24-year-old female who presents to the ER with complaints of ongoing vaginal the bleeding. She reports she a approximately 4 months ago. Patient has had ongoing vaginal bleeding since that time. She reports she was in the ER yesterday and had a transvaginal ultrasound performed. Patient reports she takes Depo-Provera for control. She endorses lower abdominal pain is constant. Patient reports she was like to know what she can do to help stop the bleeding. Patient thought she had an OBGYN appointment today but turns out next week. She is not wanting to wait for her OBGYN appointment for the bleeding to stop. Patient denies shortness of breath, signs/symptoms of infection, for chest pain. <Shamika Charles APRN - Last Filed: 04/30/24 15:06> Source: patient <OLIVIA Lin Last Filed: 04/30/24 19:57> Mode of arrival: ambulatory <OLIVIA Lin Last Filed: 04/30/24 19:57> Limitations: no limitations <LOIVIA Lin Last Filed: 04/30/24 19:57> History of Present Illness HPI Narrative: Agree with above HPI. Seen in ED yesterday, stable H&H. US showed adenomyosis. Scheduled to follow up with Dr. Ghosh next Friday. Patient had been on Depo shot in December, but did not renew this in March when she was scheduled. Denies abd pain, dizziness/lightheadedness, syncope. <MANUEL Lin Last Filed: 04/30/24 19:57> Related Data Allergies/Adverse reactions: Allergies Allergy/AdvReac Type Severity Reaction Status Date / Time No Known Allergies Allergy Verified 04/30/24 16:49 <Shamika Charles APRN - Last Filed: 04/30/24 15:06> Review of Systems Review of Systems: All systems reviewed & are unremarkable except as noted in HPI. <Sil Kulkarni PA-C - Last Filed: 04/30/24 19:57> All systems reviewed & are unremarkable except as noted in HPI and below <Sil Kulkarni PA-C - Last Filed: 04/30/24 19:57> [facility] Past Medical History Medical History: Medical History Anemia History of psychiatric hospitalization Rash Suicide attempt by overdose <Shamika Charles APRN - Last Filed: 04/30/24 15:06> Surgical History Surgical History: Surgical History H/O oral surgery by overdose <Shamika Charles APRN - Last Filed: 04/30/24 15:06> Family History Family History: Family History Mother Healthy adult Father Healthy adult Grandparent Lung cancer <Shamika Charles APRN - Last Filed: 04/30/24 15:06> Social History Social History: Social History Years smoked: 3 Smoking status: Never smoker Tobacco type: e-cigarettes/vaping Second hand tobacco smoke exposure: No Alcohol intake: never Substance use: never Substance use type: does not use Do You Feel Safe in your Home?: Yes Lack of Transportation: No Lack of Food: Never True Current Housing: I Have Housing Concerned About Future Housing: No Difficulty Paying Gas/Electric Bills: No Difficulty Paying for Meds: No Currently Unemployed: No Education: High School Diploma/GED Difficulty w/ Childcare or Family Care: No Living arrangements: with family Additional living arrangements comments: with mother Occupation/Education: occupation Additional occupation/education comments: [employer] Gender identity (if verbalized by the patient): Female Spiritual care concerns: No <Shamika Charles, LILI - Last Filed: 04/30/24 15:06> Exam Narrative: GENERAL: Well appearing, obese with BMI of 32.5, non-toxic, in no acute distr ess. HEAD: Normocephalic, atraumatic. RESPIRATORY: Airway patent, respirations nonlabored. Clear to auscultation bilaterally, no rales, rhonchi, wheezing. CARDIOVASCULAR: Regular rate and rhythm ABDOMINAL: Soft, nontender, nondistended. Normoactive BS. MUSCULOSKELETAL: Moves all extremities. No gross deformities. SKIN: Warm, dry, normal color. NEURO: A&O X3. Speech clear. PSYCHIATRIC: Appropriate mood and affect. Normal interaction. <Sil Kulkarni PA-C - Last Filed: 04/30/24 19:57> Course Vital Signs Vital signs: Vital Signs Temperature 97.8 F 04/30/24 13:33 Pulse Rate 88 04/30/24 13:33 Respiratory Rate 16 04/30/24 13:33 Blood Pressure 141/86 H 04/30/24 13:33 Pulse Oximetry 100 04/30/24 13:33 Oxygen Delivery Room Air 04/30/24 13:33 Temperature 97.8 F 04/30/24 13:33 Pulse Rate 78 04/30/24 19:49 Respiratory Rate 16 04/30/24 19:49 Blood Pressure 126/88 04/30/24 19:49 Pulse Oximetry 99 04/30/24 19:49 Oxygen Delivery Room Air 04/30/24 13:33 <Shamika Charles, SPORTS ANALYST - Last Filed: 04/30/24 15:06> Vital Signs Temperature 97.8 F 04/30/24 13:33 Pulse Rate 88 04/30/24 13:33 Respiratory Rate 16 04/30/24 13:33 Blood Pressure 141/86 H 04/30/24 13:33 Pulse Oximetry 100 04/30/24 13:33 Oxygen Delivery Room Air 04/30/24 13:33 Temperature 97.8 F 04/30/24 13:33 Pulse Rate 78 04/30/24 19:49 Respiratory Rate 16 04/30/24 19:49 Blood Pressure 126/88 04/30/24 19:49 Pulse Oximetry 99 04/30/24 19:49 Oxygen Delivery Room Air 04/30/24 13:33 <Sil Kulkarni PA-C - Last Filed: 04/30/24 19:57> MDM - Female Genitourinary MDM Narrative Medical decision making narrative: Patient presented to ED with ongoing vaginal bleeding since at end of November. Seen in the ED yesterday and had ultrasound which showed adenomyosis. Patient that she had an appointment with an OBGYN today, but found out it was next Friday. Wants to know what she can do to stop the bleeding. Vital signs are stable upon arrival. No evidence of hemodynamic instability. Patient denies any dizziness, lightheadedness, syncope. Will repeat CBC today to ensure hemoglobin is stable and discussed with OBGYN. Hemoglobin today stable. Consistent with previous records. Urine negative. Discussed case with Dr. Ghosh, OBGYN, recommended to start oral control pill to help with bleeding. Will see in office next week at her appointment. Patient is in agreement with this. Will start Loestrin. Patient is not shwetha astfeeding. Patient advised to continue monitoring bleeding at home, given return precautions. Discharged in stable condition. <Sil Kulkarni PA-C - Last Filed: 04/30/24 19:57> Medical Records Attestation: I reviewed the patient's medical records. <Sil Kulkarni PA-C - Last Filed: 04/30/24 19:57> Lab Data Attestation: I reviewed the patient's lab results. <Sil Kulkarni PA-C - Last Filed: 04/30/24 19:57> Result diagrams: 04/30/24 17:23 <Shamika Charles APRN - Last Filed: 04/30/24 15:06> Labs: Lab Results 04/30/24 04/30/24 Range/Units 17:23 18:10 WBC 9.6 (4.5-10.0) K/mm3 RBC 4.95 (4.2-5.4) M/mm3 Hgb 11.8 L (12.0-15.0) g/dL Hct 36.9 L (37.0-47.0) % MCV 74.5 L (80-100) fl MCH 23.8 L (26-34) pg MCHC 32.0 (32-36) g/dl RDW 16.8 H (11.5-14.5) % Plt Count 436 H (150-375) k/mm3 MPV 8.9 (7.4-10.4) fl Immature Gran % (Auto) 0.2 (0-0.5) % Neut % (Auto) 62.4 (45.5-73.1) % Lymph % (Auto) 27.2 (18.3-44.2) % [place] % (Auto) 7.5 (2.6-8.5) % Eos % (Auto) 1.4 (0-4.4) % Baso % (Auto) 1.3 H (0.2-1.2) % Lymph # (Auto) 2.61 (0.9-3.2) K/mm3 [place] # (Auto) 0.7 H (0.1-0.6) K/mm3 Eos # (Auto) 0.1 (0-0.3) K/mm3 Baso # (Auto) 0.1 (0.0-0.1) K/mm3 Abs Immat Gran (auto) 0.02 (0.00-0.031) K/mm3 Absolute Neuts (auto) 6.0 (1.3-6.7) K/mm3 Absolute Nucleated RBC 0.000 (0.0-0.012) K/mm3 Nucleated RBC % 0.0 (0.0-0.2) % Platelet Estimate Increased (Adequate) Anisocytosis 1+ Microcytosis 1+ (NORMAL) Schistocytes None seen POC Urine HCG, Qual Negative (Negative) <Shamika Charles, SPORTS ANALYST - Last Filed: 04/30/24 15:06> Lab Results 04/30/24 04/30/24 Range/Units 17:23 18:10 WBC 9.6 (4.5-10.0) K/mm3 RBC 4.95 (4.2-5.4) M/mm3 Hgb 11.8 L (12.0-15.0) g/dL Hct 36.9 L (37.0-47.0) % MCV 74.5 L (80-100) fl MCH 23.8 L (26-34) pg MCHC 32.0 (32-36) g/dl RDW 16.8 H (11.5-14.5) % Plt Count 436 H (150-375) k/mm3 MPV 8.9 (7.4-10.4) fl Immature Gran % (Auto) 0.2 (0-0.5) % Neut % (Auto) 62.4 (45.5-73.1) % Lymph % (Auto) 27.2 (18.3-44.2) % [place] % (Auto) 7.5 (2.6-8.5) % Eos % (Auto) 1.4 (0-4.4) % Baso % (Auto) 1.3 H (0.2-1.2) % Lymph # (Auto) 2.61 (0.9-3.2) K/mm3 [place] # (Auto) 0.7 H (0.1-0.6) K/mm3 Eos # (Auto) 0.1 (0-0.3) K/mm3 Baso # (Auto) 0.1 (0.0-0.1) K/mm3 Abs Immat Gran (auto) 0.02 (0.00-0.031) K/mm3 Absolute Neuts (auto) 6.0 (1.3-6.7) K/mm3 Absolute Nucleated RBC 0.000 (0.0-0.012) K/mm3 Nucleated RBC % 0.0 (0.0-0.2) % Platelet Estimate Increased (Adequate) Anisocytosis 1+ Microcytosis 1+ (NORMAL) Schistocytes None seen POC Urine HCG, Qual Negative (Negative) <Sil Kulkarni PA-C - Last Filed: 04/30/24 19:57> Discharge Plan Discharge Clinical Impression: Dysfunctional uterine bleeding, Adenomyosis <Shamika Charles APRN - Last Filed: 04/30/24 15:06> Patient Disposition: Home, Self-Care <Shamika Charles APRN - Last Filed: 04/30/24 15:06> Condition: Stable <Shamika Charles APRN - Last Filed: 04/30/24 15:06> Instructions: Antibiotic Form, Abnormal (Dysfunctional) Uterine Bleeding (ED) <Shamika Charles APRN - Last Filed: 04/30/24 15:06> Additional Instructions: Take oral control pills as prescribed. Follow-up with OBGYN for further evaluation. <Shamika Charles APRN - Last Filed: 04/30/24 15:06> Prescriptions: New norethindrone-e.estradiol-iron [Loestrin Fe 1.5/30 (28-Day)] 1.5 mg-30 mcg (21)/75 mg (7) tablet 1 tablet PO DAILY Qty: 84 0RF <Shamika Charles APRN - Last Filed: 04/30/24 15:06> Follow-up/Referrals: Tejas Ghosh MD [Physician] - (OBGYNJosefina Espinosa,Valeri Quintero MD [Primary Care Provider] - <Shamika Charles APRN - Last Filed: 04/30/24 15:06> Time of Disposition: 19:41 <Shamika Charles APRN - Last Filed: 04/30/24 15:06> 19:41 <Sil Kulkarni PA-C - Last Filed: 04/30/24 19:57>
[2024-04-30 16:50] VITALS: BP 125/93; PULSE 90; RESP 18; O2SAT 99
[2024-04-30] MEDS: IBUPROFEN 400 MG TABLET 800 MG PO (16:55)
[2024-04-30 17:27] LABS: Basophils Absolute Auto 0.1 K/mm3 (0.0-0.1); Basophils Percent Auto 1.3 % (0.2-1.2); Eosinophils Absolute Auto 0.1 K/mm3 (0-0.3); Eosinophils Percent Auto 1.4 % (0-4.4); Hematocrit 36.9 % (37.0-47.0); Hemoglobin 11.8 g/dL (12.0-15.0); Immature Granulocyte Absolute 0.02 K/mm3 (0.00-0.031); Immature Granulocyte Percent A 0.2 % (0-0.5); Lymphocytes Absolute Auto 2.61 K/mm3 (0.9-3.2); Lymphocytes Percent Auto 27.2 % (18.3-44.2); Mean Corpuscular Hemoglobin 23.8 pg (26-34); Mean Corpuscular Volume 74.5 fl (80-100); Mean Platelet Volume 8.9 fl (7.4-10.4); Monocytes Absolute Auto 0.7 K/mm3 (0.1-0.6); Monocytes Percent Auto 7.5 % (2.6-8.5); Neutrophils Percent Auto 62.4 % (45.5-73.1); Platelet Count Result 436 k/mm3 (150-375); Red Blood Count 4.95 M/mm3 (4.2-5.4); Red Cell Distribution Width 16.8 % (11.5-14.5); White Blood Count 9.6 K/mm3 (4.5-10.0)
[2024-04-30 18:18] LABS: Anisocytosis 1+; Microcytosis 1+ (NORMAL); Platelet Estimate Increased (Adequate)
[2024-04-30 18:19] LABS: Schistocytes None Seen
[2024-04-30 18:36] LABS: BEDSIDEPREGUCG Negative (Negative)
--- NOTE | 2024-04-30 19:05 | PC.NURSE ---
Report given to KENTRELL Barros
[2024-04-30 19:49] VITALS: BP 126/88; PULSE 78; RESP 16; O2SAT 99
== END 2024-04-30 19:23 | disposition home or self-care (01) ==
PROVIDERS: Emergency Provider Physician Assistant; PCP Family Medicine
DX: N93.8 Other specified abnormal uterine and vaginal bleeding (principal); N80.03 Adenomyosis of the uterus
CPT/HCPCS: 36415; 81025; 85025; 99283; A9270

== ENCOUNTER 2024-08-07 13:25 | Emergency (ER) | payer OTHER, SELFPAY ==
[2024-08-07 13:27] VITALS: BP 145/90; PULSE 94; RESP 18; TEMP 37.1; O2SAT 99
--- OUTSIDE RECORDS SUMMARY | 2024-08-07 13:27 | XMS_ITS | Clinical Summary ---
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 Active vitamin w/ iron-folic acid ( PLUS) 29-1 MG Tab tablet Take 1 tablet by mouth daily. Active ferrous sulfate EC 324 (65 Fe) MG tablet Take 1 tablet (324 mg total) by mouth 2 (two) times daily with meals. Active senna-docusate (SENOKOT-S) 8.6-50 MG tablet Take 1 tablet by mouth 2 (two) times daily. 60 tablet 4 Active Active Problems Problem Noted Date Diagnosed Date Non-reassuring electronic fe hollis monitoring tracing ([facility]) 12/16/2023 NST (non-stress test) nonreactive 12/15/2023 Social History Tobacco Use Types Packs/Day Years Used Date Smoking Tobacco: Never Smokeless Tobacco: Never Tobacco Cessation:Counseling Given: Not Answered Alcohol Use Standard Drinks/Week Comments Not Currently 0 (1 standard drink = 0.6 oz pur e alcohol) B1300 Health Literacy Answer Date Recor ded How often do you need to hav e someone help you when you read instructions, pamphlets, or other written material from your doctor or pharmacy? Never 10/08/2023 [facility] Utilities Answer Date Recorded In the past 12 months has doctors[facility] hospital [email or web address], [employer], or [facility] threatened to shut off services in your home? No 10/08/2023 Humiliation, Afraid, Rape, and Kick questionnair e Answer Date Recorded Within the last year, have y ou been afraid of your partner or ex-partner? No 10/08/2023 Within the last year, have y ou been humiliated or emotionally abused in other ways by your partner or ex-partner? No Within the last year, have y ou been kicked, hit, slapped, or otherwise physically hurt by your partner or ex-partner? No 10/08/2023 Within the last year, have y ou been raped or forced to have any kind of sexual activity by your partner or ex-partner? No 10/08/2023 Social Connection and Isolat ion Panel [NHANES] Answer Date Recorded In a typical week, how many times do you talk on the phone with family, friends, or neighbors? More than three times a week 10/08/2023 How often do you get togethe r with friends or relatives? More than three times a week 10/08/2023 How often do you attend chur ch or judaism services? Never 10/08/2023 Do you belong to any clubs o r organizations such as jain groups, unions, fraternal or athletic groups, or school groups? No 10/08/2023 How often do you attend meet ings of the clubs or organizations you belong to? Never 10/08/2023 Are you , , di vorced, , never , or living with a partner? Living with partner 10/08/2023 AUDIT-C Answer Date Recorded Q1: How often do you have a drink containing alcohol? Never 10/08/2023 Q2: How many drinks containi ng alcohol do you have on a typical day when you are drinking? Patient does not drink Q3: How often do you have si x or more drinks on one occasion? Never 10/08/2023 Overall Financial Resource Strain (CARDIA) Answe r Date Recorded How hard is it for you to pa y for the very basics like food, housing, medical care, and heating? Not hard at all 10/08/2023 [facility] [place] [facility] [employer] - Occupational Stress Questionnaire Answer Date Recorded Do you feel stress - tense, restless, nervous, or anxious, or unable to sleep at night because your mind is troubled all the time - these days? Not at all 10/08/2023 Exercise Vital Sign Answer Date Recorde d On average, how many days pe r week do you engage in moderate to strenuous exercise (like a brisk walk)? 7 days 10/08/2023 On average, how many minutes do you engage in exercise at this level? 60 min 10/08/2023 Hunger Vital Sign Answer Date Recorded Within the past 12 months, y ou worried that your food would run out before you got the money to buy more. Never true 10/08/19 24 Within the past 12 months, t he food you bought just didn't last and you didn't have money to get more. Never true 10/08/2023 PRAPARE - Transportation Answer Date Re corded In the past 12 months, has l ack of transportation kept you from medical appointments or from getting medications? No 10/08/2023 Lack of Transportation (Non-Medical) Not on file 10/08/2023 Housing Stability Vital Sign Answer Solo e Recorded In the last 12 months, was t here a time when you were not able to pay the mortgage or rent on time? No 10/08/2023 In the past 12 months, how m any times have you moved where you were living? 1 10/08/2023 At any time in the past 12 m [facility], were you homeless or living in a [place] facility (including now)? No 10/08/2023 Depression Answer Date Recor ded Last EPDS Total Score 1 12/19/2023 Last EPDS Self Harm Result Hardly ever 12/18 Comments No Sex and Gender Information Value Date Recorded Sex Assigned at Female 12/16/2023 4:21 AM CDT Legal Sex Female 7:05 AM CDT Gender Identity Female 12/16/2023 4:21 AM CDT Sexual Orientation Straight 12/16/2023 4: 21 AM CDT Last Filed Vital Signs Vital Sign Reading Time Taken Comments Blood Pressure 118/75 12/19/2023 10:08 AM CDT Pulse 87 12/19/2023 10:08 AM CDT Temperature 35.5 C (95.9 F) 12/19/2023 10:07 AM CDT Respiratory Rate 18 12/19/2023 10:47 AM CDT Oxygen Saturation 99% 12/19/2023 10:08 AM CDT Inhaled Oxygen Concentration - - Weight 89.4 kg (197 lb) 12/16/2023 4:24 AM CDT Height 157.5 cm (5' 2 ) 12/16/2023 4:24 AM CDT Body Mass Index 36.03 12/16/2023 4:24 AM CDT Plan of Treatment Health Maintenance Due Date Last Done Comments Cervical Cancer Screening Pa p Smear (Age 21 to 29) Every 3 Years 2001 Cervical Cancer Screening 2001 Hepatitis B Vaccines (3 of 3 - 3-dose series) 06/30/2002 05/05/2002, 2001 Annual Physical 01/18/2004 Chlamydia Screening Females ages 16-24 2017 Meningococcal B Vaccine (1 o f 2 - Standard) 2017 DTaP, Tdap and Td Vaccines ( 4 - Tdap) 01/18/2020 09/15/2002, 05/05/2002, 2001 COVID-19 Vaccine (2023-2 5 season) 2024 Influenza Adult (#1) 2024 Pneumococcal Vaccine: Pediatrics (0 to 5 Years) and At-Risk Patients (6 to 64 Years) Aged Out 05/05/2002 No longer eligible b ased on patient's age to complete this topic HPV Vaccines Completed 07/26/2015, 03/22/2015, 01/18/2015 Meningococcal Vaccine Completed 04/03/2018 , 01/18/2015 Hepatitis C Completed 11/13/2023, 08/25/2023, 08/25/2023 RSV Immunizations Under 20 Months Aged Out No longer eligible b ased on patient's age to complete this topic Procedures Procedure Name Priority Date/Time Associated Diagnosis Comments HEPATITIS C ANTIBODY Routine 11/13/2023 from Last 3 Months or Most Recently Relevant to Health Maintenance Results * HEPATITIS C ANTIBODY (11/13/2023) HEPATITIS C AB NON-REACTI VE us Default History Genericprovider LABORATORY Final Result from Last 3 Months or Most Recently Relevant to Health Maintenance Insurance [facility] Advance Directives * Full Code (Latest Code Status on File) Date Activated Date Inactivated Comments 12/16/2023 9:44 PM 12/19/2023 6:19 PM * Full Code Date Activated Date Inactivated Comments 12/16/2023 4:51 AM 12/16/2023 9:44 PM Care Teams Locomotive Firer/Fireman Relationship Specialty Start Date End Date None, Provider, PCP - General 05/19/21
--- OUTSIDE RECORDS SUMMARY | 2024-08-07 13:27 | XMS_ITS | Data Portability ---
Author Organization [facility] Address [address] [place] [address] Care Team Providers [employer] Team Leader Name Role Phone [facility] Primary Care Provider [phone] Assessment Encounter Date Assessment Date Assessment LastModified by Organization Details LastModified Time 05/07/2024 05/07/2024 The patient and I disscussed the various causes of abnormal uterine bleeding, including polyps, fibroids, hyperplasia, atypia, anovulation, etc. We reviewed the typical evaluation with labs, pelvic US and possible endometrial biopsy. Briefly discussed the options available for treatment (depending on the results of evaluation) such as hormonal treatment (OCPs, progestins), Mirena, endometrial ablation, and surgery. We spent more than 30 minutes face to face. [email or web address] Not available 05/07/2024 14:17:57 Plan of Treatment Reminders Order Date Submit Date Provider Last Modified By Organization Details Last Modified Time Details Appointments SURG PRE OP 2024 10:15A Sarah GHOSH MD Not available Not available Not available [facility] 2024 07:30A Sarah GHOSH MD Not available Not available Not available SURG POST OP 2024 10:30A Sarah GHOSH MD Not available Not available Not available Lab unlisted lab - 17-oh progester one, lc/MS/MS 2023 024 [facility] (Lab), [address], [place], [address], 05/16/2024 20:43:14 dhea-sulf ate, serum 2023 024 [facility] (Lab), [address], [place], [address], 05/16/2024 20:43:10 hormone panel, serum or plasma 2023 024 [facility] (Lab), [address], [place], [address], 05/16/2024 20:43:12 HbA1c (hemoglob in A1c), blood 2023 024 [facility] (Lab), [address], [place], [address], 05/16/2024 20:43:13 progester one, serum 2023 024 [facility] (Lab), [address], [place], [address], 05/16/2024 20:43:11 prolactin , serum 2023 024 [facility] (Lab), [address], [place], [address], 05/16/2024 20:43:11 shbg (sex hormone-b inding globulin) , serum 2023 024 [facility] (Lab), [address], [place], [address], 05/16/2024 20:43:13 testoster one free/test osterone total, ratio, serum 2023 024 [facility] (Lab), [address], [place], [address], 05/16/2024 20:43:14 TSH, serum or plasma 2023 024 [facility] (Lab), [address], [place], [address], 05/16/2024 20:43:12 Referral None recorded. Procedures None recorded. Surgeries total hysterect akhil, laparosco pic, with bilateral salpingec cydney (SURG) 2023 024 [id number], [address], [place], [address], 07/06/2024 16:45:40 Imaging US, pelvis 2023 024 [email or web address], [place], [address], 05/11/2024 19:54:30 US, transvagi nal 2023 024 [email or web address], [address], [place], [address], 05/11/2024 19:54:30 US, pelvis, complete 2023 024 [email or web address] [address], [address], [place], [address], 07/20/2024 11:16:35 Medication Orders Loestrin Fe 1.5/30 (28-Day) 1.5 mg-30 mcg (21)/75 mg (7) tablet 2023 024 [id number], [address] [place] [address], [address], 05/07/2024 14:28:11 Patient TargetsNo targets recorded. Patient InstructionsNo instructions recorded. Reason for Referral None Reported. Results Created Date Observation Date Name Description Value Unit Range Abnormal Flag Note LastModifiedBy Organization Detail LastModifiedTime 08/30/19 24 08/30/2023 [UNIT Y] ANEUP LOIDY NIPT fraction 3.7% normal Not Available Haylie morales [address], [place], [address], 08/30/2023 02:32:01 08/30/19 24 08/30/2023 [UNIT Y] ANEUP LOIDY NIPT sex chromosome aneuploidy NOT DETECT ED normal Not Available Opal woodard [address] [facility], [place], [address], 08/30/2023 02:32:01 08/30/19 24 08/30/2023 [UNIT Y] ANEUP LOIDY NIPT monosomy X LOW RISK <1 in 10,000 normal Not Available [facility] [address] [facility], [place], [address], 08/30/2023 02:32:01 08/30/19 24 08/30/2023 [UNIT Y] ANEUP LOIDY NIPT trisomy 13 LOW RISK <1 in 10,000 normal Not Available [facility] [address] [facility], [place], [address], 08/30/2023 02:32:01 08/30/19 24 08/30/2023 [UNIT Y] ANEUP LOIDY NIPT trisomy 18 LOW RISK <1 in 10,000 normal Not Available [facility] [place], [address], 08/30/2023 02:32:01 08/30/19 24 08/30/2023 [UNIT Y] ANEUP LOIDY NIPT trisomy 21 LOW RISK <1 in 10,000 normal Not Available [facility] [place], [address], 08/30/2023 02:32:01 08/30/19 24 08/30/2023 [UNIT Y] ANEUP LOIDY NIPT sex MALE normal Not Available [facility] [address] [address] [place], [address], 08/30/2023 02:32:01 08/30/19 24 08/30/2023 [UNIT Y] ANEUP LOIDY NIPT gestation SINGLE TON normal Not Available [facility] [place], [address], 08/30/2023 02:32:01 08/30/19 24 08/30/2023 [UNIT Y] ANEUP LOIDY NIPT for detailed report, see pdf See PDF normal Not Available [facility] [address], [place], [address], 08/30/2023 02:32:01 06/30/19 24 06/30/2023 CT/GC AND TRICH OMONA S VAGIN DEIDRA (RRNA ), URINE chlamydia trachomatis, PCR Negati ve negati ve Not Available [facility] (Lab) [address], [place], [address], 07/01/2023 16:41:29 06/30/19 24 06/30/2023 CT/GC AND TRICH OMONA S VAGIN DEIDRA (RRNA ), URINE neisseria gonorrhoeae, PCR Negati ve negati ve Not Available [facility] (Lab) [address], [place], [address], 07/01/2023 16:41:29 06/30/19 24 06/30/2023 CT/GC AND TRICH OMONA S VAGIN DEIDRA (RRNA ), URINE trichomonas vaginalis ribosomal RNA (rrna) Negati ve negati ve Not Available [facility] (Lab) [address], [place], [address], 07/01/2023 16:41:29 08/25/19 24 08/25/2023 CBC W/DIF F WBC 8.8 10'3/ uL 3.5-10 .5 Not Available [facility] (Lab) [address], [place], [address], 08/26/2023 12:33:15 08/25/19 24 08/25/2023 CBC W/DIF F RBC 4.49 10'6/ uL (based on docume nted legal sex) 3.80-5 .20 Not Available [facility] (Lab) [address], [place], [address], 08/26/2023 12:33:15 08/25/19 24 08/25/2023 CBC W/DIF F HGB 12.5 g/dL (based on docume nted legal sex) 11.6-1 5.4 Not Available [facility] (Lab) [address], [place], [address], 08/26/2023 12:33:15 08/25/19 24 08/25/2023 CBC W/DIF F HCT 37.2 % (based on docume nted legal sex) 34.0-4 5.0 Not Available [facility] (Lab) [address], [place], [address], 08/26/2023 12:33:15 08/25/19 24 08/25/2023 CBC W/DIF F MCV 82.9 fL 80.0-9 9.0 Not Available [facility] (Lab) [address], [place], [address], 08/26/2023 12:33:15 08/25/19 24 08/25/2023 CBC W/DIF F MCH 27.8 pg 27.0-3 4.0 Not Available [facility] (Lab) [address], [place], [address], 08/26/2023 12:33:15 08/25/19 24 08/25/2023 CBC W/DIF F MCHC 33.6 g/dL 32.0-3 5.5 Not Available [facility] (Lab) [address], [place], [address], 08/26/2023 12:33:15 08/25/19 24 08/25/2023 CBC W/DIF F RDW 14.7 % 11.0-1 5.0 Not Available [facility] (Lab) [address], [place], [address], 08/26/2023 12:33:15 08/25/19 24 08/25/2023 CBC W/DIF F plt 356 10'3/ uL 150-40 0 Not Available [facility] (Lab) [address], [place], [address], 08/26/2023 12:33:15 08/25/19 24 08/25/2023 CBC W/DIF F MPV 9.9 fL 8.8-12 .1 Not Available [facility] (Lab) [address], [place], [address], 08/26/2023 12:33:15 08/25/19 24 08/25/2023 CBC W/DIF F NRBC's 0.0 % 0.0 Not Available [facility] (Lab) [address], [place], [address], 08/26/2023 12:33:15 08/25/19 24 08/25/2023 CBC W/DIF F absolute NRBCs 0.0 10'3/ uL 0.0 Not Available [facility] (Lab) [address], [place], [address], 08/26/2023 12:33:15 08/25/19 24 08/25/2023 CBC W/DIF F neutrophils 75.4 % 34.0-7 3.0 high Not Available [facility] (Lab) [address], [place], [address], 08/26/2023 12:33:15 08/25/19 24 08/25/2023 CBC W/DIF F lymphocytes 15.3 % 15.0-5 0.0 Not Available [facility] (Lab) [address], [place], [address], 08/26/2023 12:33:15 08/25/19 24 08/25/2023 CBC W/DIF F monocytes 7.5 % 1.0-15 .0 Not Available [facility] (Lab) [address], [place], [address], 08/26/2023 12:33:15 08/25/19 24 08/25/2023 CBC W/DIF F eosinophils 0.7 % 0.0-8. 0 Not Available [facility] (Lab) [address], [place], [address], 08/26/2023 12:33:15 08/25/19 24 08/25/2023 CBC W/DIF F basophils 0.6 % 0.0-2. 0 Not Available [facility] (Lab) [address], [place], [address], 08/26/2023 12:33:15 08/25/19 24 08/25/2023 CBC W/DIF F immature granulocytes 0.5 % no define d refere nce range Not Available [facility] (Lab) [address], [place], [address], 08/26/2023 12:33:15 08/25/19 24 08/25/2023 CBC W/DIF F absolute neutrophils 6.7 10'3/ uL 1.5-8. 0 Not Available [facility] (Lab) [address], [place], [address], 08/26/2023 12:33:15 08/25/19 24 08/25/2023 CBC W/DIF F absolute lymphocytes 1.4 10'3/ uL 1.0-4. 0 Not Available [facility] (Lab) [address], [place], [address], 08/26/2023 12:33:15 08/25/19 24 08/25/2023 CBC W/DIF F absolute monocytes 0.7 10'3/ uL 0.2-1. 0 Not Available [facility] (Lab) [address], [place], [address], 08/26/2023 12:33:15 08/25/19 24 08/25/2023 CBC W/DIF F absolute eosinophils 0.1 10'3/ uL 0.0-0. 6 Not Available [facility] (Lab) [address], [place], [address], 08/26/2023 12:33:15 08/25/19 24 08/25/2023 CBC W/DIF F absolute basophils 0.1 10'3/ uL 0.0-0. 3 Not Available [facility] (Lab) [address], [place], [address], 08/26/2023 12:33:15 08/25/19 24 08/25/2023 CBC W/DIF F absolute immature granulocytes 0.0 10'3/ uL 0.00-0 .10 024 1:44 AM: P indic ates parti al resul ts on a panel have been relea sed. Addit ional resul ts will follo w. 024 1:44 AM: This resul t has been final verif ied. No addit ional or ma ed resul ts are expec imtiaz. Not Available [facility] (Lab) [address], [place], [address], 08/26/2023 12:33:15 08/25/19 24 08/25/2023 HEPAT ITIS B SURFA CE ANTIG EN hepatitis B surface antigen Non-re active non-re active This assay was perfo rmed using [employer] ratio n reage nts and test kits. Value s obtai talya with other assay metho ds or kits canno t be used inter ma eably . Not Available [facility] (Lab) [address], [place], [address], 08/26/2023 12:33:15 08/25/19 24 08/25/2023 HIV 1/2 ANTIG EN/AN TIBOD Y, REFLE X CONFI RMATI ON HIV antigen/anti body Nonrea ctive nonrea ctive HIV-1 antig en and HIV-1 /HIV- 2 antib odies were not detec imtiaz. No labor atory evide nce of HIV infec tion. Not Available [facility] (Lab) [address], [place], [address], 08/26/2023 12:33:16 08/25/19 24 08/25/2023 HEPAT ITIS C ANTIB BRADY SCREE N, REFLE X TO CONFI RMATI ON hepatitis C antibody Non-re active non-re active Antib odies to HCV Not Detec imtiaz, does not exclu de the possi bilit y of expos ure to HCV. Not Available [facility] (Lab) [address], [place], [address], 08/26/2023 12:33:17 08/25/19 24 08/25/2023 TYPE/ RH/SC REEN ABO/Rh type O POS Not Available [facility] (Lab) [address], [place], [address], 08/26/2023 12:33:18 08/25/19 24 08/25/2023 TYPE/ RH/SC REEN antibody screen NEG Not Available [facility] (Lab) [address], [place], [address], 08/26/2023 12:33:18 08/25/19 24 08/25/2023 TYPE/ RH/SC REEN exp date 2023 23:59 Not Available [facility] (Lab) [address], [place], [address], 08/26/2023 12:33:18 08/25/19 24 08/25/2023 RUBEL LA IGG ANTIB BRADY, QUANT rubella antibodies, IgG Reacti ve reacti ve Not Available [facility] (Lab) [address], [place], [address], 08/26/2023 12:33:19 08/25/19 24 08/25/2023 RUBEL LA IGG ANTIB BRADY, QUANT rubella antibodies, IgG quant 22.0 IU/mL >=10 Non-r eacti ve (Non- Immun e) <10 IU/mL React karthik (Immu ne) > or = 10 IU/mL Not Available [facility] (Lab) [address], [place], [address], 08/26/2023 12:33:19 08/25/19 24 08/25/2023 HEMOG LOBIN A1C hemoglobin A1C 5.0 % 0-5.6 The Ameri can Diabe paula Assoc iatio n recom mends that a prima ry goal of thera py anna mccullough be a HBA1C of < 7% and that physi cians shoul d reeva luate the treat ment regim en in patie nts with HBA1C value s consi stent ly > 8%. <5.7% Purvi l 5.7 - 6.4% Incre ased risk for diabe paula >=6.5 % Diagn ostic of diabe paula <7.0% Goal of thera py >8.0% Actio n sugge sted Not Available [facility] (Lab) [address], [place], [address], 08/26/2023 12:33:19 08/25/19 24 08/25/2023 RPR SCREE N, REFLE X TITER /CONF IRMAT ION RPR screen Nonrea ctive nonrea ctive Not Available [facility] (Lab) [address], [place], [address], 08/26/2023 12:33:20 05/07/20 24 05/07/2024 DHEA SULFA TE DHEA-sulfate 202 ug/dL Femal e Range s Age(y ) Range (ug/d L) 10-15 34-28 0 15-20 65-36 8 20-25 148-4 07 25-35 99-34 0 35-45 61-33 7 45-55 35-25 6 55-65 19-20 5 65-75 9-246 > 75 12-15 4 Not Available [facility] (Lab) [address], [place], [address], 05/16/2024 20:43:10 05/07/20 24 05/07/2024 PROGE STERO NE progesterone 0.15 NG/mL This assay was perfo rmed using [employer] n reage nts and test kits. Value s obtai talya with other assay metho ds or kits canno t be used inter ma eably . Femal e Proge stero ne Range s: Folli cular phase 0.06- 0.89 ng/mL Ovula tion phase 0.12- 12.00 ng/mL Lutea l phase 1.83- 23.90 ng/mL Postm enopa usal <0.05 -0.13 ng/mL Healt hy Pregn ant Women 1st Trime ster 11.0- 44.30 2nd Trime ster 25.40 -83.3 0 3rd Trime ster 58.70 -214. 00 Not Available [facility] (Lab) [address] [place], [address], 05/16/2024 20:43:11 05/07/20 24 05/07/2024 PROLA CTIN prolactin, total 12.10 NG/mL 4.79-2 3.30 This assay was perfo rmed using [employer] ratio n reage nts and test kits. Value s obtai talya with other assay metho ds or kits canno t be used inter ma eay . Not Available [facility] (Lab) [address] [place], [address], 05/16/2024 20:43:11 05/07/20 24 05/07/2024 FSH, LH, ESTRA DIOL estradiol 232.0 pg/mL This assay was perfo rmed using [employer] n reage nts and test kits. Value s obtai talya with other assay metho ds or kits canno t be used inter ma eay . Femal e Estra diol Range s: Folli cular phase 12.4- 233 pg/mL Ovula tion phase 41.0- 398 pg/mL Lutea l phase 22.3- 341 pg/mL Postm enopa usal <5-13 8 pg/mL Healt hy Pregn ant Women 1st Trime ster 154-3 243 pg/mL 2nd Trime ster 1561- 55107 pg/mL 3rd Trime ster 8525- >3000 0 pg/mL Not Available [facility] (Lab) [address] [place], [address], 05/16/2024 20:43:12 05/07/20 24 05/07/2024 FSH, LH, ESTRA DIOL FSH 2.1 mIU/m L This assay was perfo rmed using [employer] n reage nts and test kits. Value s obtai talya with other assay metho ds or kits canno t be used inter [facility] eay . Femal es Folli cular : 3.5-1 2.5 mIU/m L Ovula tion: 4.7-2 1.5 mIU/m L Lutea l: 1.7-7 .7 mIU/m L Postm enopa use: 25.8- 134.8 mIU/m L Not Available [facility] (Lab) [address], [place], [address], 05/16/2024 20:43:12 05/07/20 24 05/07/2024 FSH, LH, ESTRA DIOL LH 1.8 mIU/m L This assay was perfo rmed using [employer] ratio n reage nts and test kits. Value s obtai talya with other assay metho ds or kits canno t be used inter [facility] . Femal es Mid-F ollic ular: 2.4-1 2.6 mIU/m L Mid-C ycle: 14.0- 95.6 mIU/m L Mid-L uteal : 1.0-1 1.4 mIU/m L Postm enopa use: 7.7-5 8.5 mIU/m L Not Available [facility] (Lab) [address], [place], [address], 05/16/2024 20:43:12 05/07/20 24 05/07/2024 TSH, REFLE X FREE T4 TSH 1.91 uIU/m L 0.30-5 .33 Not Available [facility] (Lab) [address], [place], [address], 05/16/2024 20:43:12 05/07/20 24 05/07/2024 HUMAN SEX HORMO NE CHARO NG GLOBU LILIANE sex hormone binding globulin 53.0 nmole s/L 18.2-1 35.5 Not Available [facility] (Lab) [address], [place], [address], 05/16/2024 20:43:13 05/07/20 24 05/07/2024 HEMOG LOBIN A1C hemoglobin A1C 4.9 % 0-5.6 The Ameri can Diabe paula Assoc iatio n recom mends that a prima ry goal of thera py shoul d be a HBA1C of < 7% and that physi cians shoul d reeva luate the treat ment regim en in patie nts with HBA1C value s consi stent ly > 8%. <5.7% Purvi l 5.7 - 6.4% Incre ased risk for diabe paula >=6.5 % Diagn ostic of diabe paula <7.0% Goal of thera py >8.0% Actio n sugge sted Not Available [facility] (Lab) [address], [place], [address], 05/16/2024 20:43:13 05/07/20 24 05/07/2024 TESTO STERO NE, FREE( DIALY SIS) AND TOTAL (LC/M S/MS) testosterone , total 21 NG/dL 2-45 For addit ional infor mar tejada e refer to http: //[facility] candelaria mehta.que stdia gnost ics.c om/fa q/ Total Testo stero neLCM SMSFA Q165 (This link is being provi ded for infor fernanda donahue/ educa josiane l purpo ses only. ) This test was devel oped and its omega tical perfo rmanc e atif cteri stics have been deter mined by [facility] Edgardo Ortizi ac [address] [place], [place]. It has not been clear ed or appro sarai by the U.S. Food and Drug Admin istra tion. This assay has been valid ated pursu ant to the CLIA regul ation s and is used for clini savita purpo ses. Not Available [facility] (Lab) [address], [place], [address], 05/16/2024 20:43:14 05/07/20 24 05/07/2024 TESTO STERO NE, FREE( DIALY SIS) AND TOTAL (LC/M S/MS) testosterone , free 2.2 pg/mL 0.1-6. 4 This test was devel oped and its omega tical perfo rmanc e atif cteri stics have been deter mined by [facility] Edgardo jansen [place], [place]. It has not been clear ed or appro sarai by the U.S. Food and Drug Admin istra tion. This assay has been valid ated pursu ant to the CLIA regul ation s and is used for clini savita purpo ses. Perfo rming Organ izati on [facility] n: Site ID: [id number] Name: [facility] ost[facility]iel [facility] Edgardo [facility] Addre ss: [id number] [place], [place] Direc tor: Andres Toro MD PhD Not Available [facility] (Lab) [address], [place], [address], 05/16/2024 20:43:14 05/07/20 24 05/07/2024 17-OH PROGE STERO NE 17-hydroxypr ogesterone, lc/MS/MS 24 NG/dL Adult Femal e Refer ence Range s for 17-Hy droxy proge stero ne: Pre-M enopa usal Mid Folli cular : 23-10 2 ng/dL Pre-M enopa usal Surge : 67-34 9 ng/dL Pre-M enopa usal Mid Lutea l: 139-4 31 ng/dL Postm enopa usal Phase : < or = 45 ng/dL Pregn vicenta: First Trime ster: 78-45 7 ng/dL Secon d Trime ster: 90-35 7 ng/dL Third Trime ster: 144-5 78 ng/dL This test was devel oped and its omega tical perfo rmanc e atif cteri stics have been deter mined by [facility] [facility]. It has not been clear ed or appro sarai by FDA. This assay has been valid ated pursu ant to the CLIA regul ation s and is used for clini savita purpo ses. Perfo rming Organ izati on Infor mat n: Site ID: [id number] Name: [facility] , Addre ss: [id number] [place] [address] Direc tor: Lili alonzo MD,Ph D,MAGDALENE Not Available [facility] (Lab) [address], [place], [address], 05/16/2024 20:43:14 06/30/19 24 06/30/2023 US, trans vagin al No observ ation record ed. [email or web address] [address], [place], [address], 06/30/2023 15:22:41 05/11/20 24 05/11/2024 US, pelvi s No observ ation record ed. [email or web address] [address], [place], [address], 05/11/2024 15:25:42 05/11/20 24 05/11/2024 US, trans vagin al No observ ation record ed. [email or web address] [address], [place], [address], 05/11/2024 15:25:50 05/11/20 24 05/11/2024 US, pelvi s No observ ation record ed. [email or web address] [address], [place], [address], 05/11/2024 20:09:49 Result Notes None recorded. Problems Name Problem SNOMED Code Status Onset Date Resolution Date Notes Provider Name and Address Organization Details Recorded Time Pregnanc y 78005238 Completed 202203/14/2023 Tiburcio alfonso [facility] 3 14:51:52 Infectio n by Trichomo noelle [id number] Completed ANDREW 08/27, retest 3rd trimester Tiburcio alfonso [facility] 3 14:51:46 Electron ic jessy woodard user [phone] Completed encourage d cessation Tiburcio Nicholsle null, [facility] 3 14:51:46 Abdiaziz vang user [phone] Completed encourage d cessation Kely Raul null, [facility] 3 14:51:46 Large for gestatio n age fetus Completed FOB was 10-15 at at 34w. 91% and 99% AC at 36w Kely Raul null, [facility] 3 14:51:46 Anemia [id number] Completed 2022 1 tab slowfe daily Kely Raul null, [facility] 3 14:51:46 Anemia of pregnanc y [id number] Completed 2022 [facility] 14:51:46 Anemia of pregnanc y 38017328 Active 2022 Kely Raul null, [facility] 3 14:51:46 Anemia [id number] Active 2022 1 tab slowfe daily Kely Raul null, [facility] 3 14:51:46 Large for gestatio n age fetus Active FOB was 10-15 at at 34w. 91% and 99% AC at 36w Kely Raul null, [facility] 3 14:51:46 Problem Notes None recorded. Procedures Surgical History Date Name Laterality Status Provider Name and Address Organization Details Recorded Time 4 Caesarean Section completed Milady Bills [facility] 05/07/2024 14:19:59 3 Date of Last Pap Smear completed Meghan Zayas [facility] 07/25/2022 13:02:52 9 Oral surgery procedure completed Meghan Zayas [facility] 07/25/2022 13:04:32 Dilation and Curettage completed Miladysimran Bills [facility] 05/07/2024 14:19:59 Imaging Results Imaging Date Name Status LastModified by Organization Details LastModified Time 06/30/2023 US, transvaginal completed [email or web address] [id number], [place], [address], 06/30/2023 15:22:41 05/11/2024 US, pelvis completed [email or web address] [place] [address], [place], [address], 05/11/2024 15:25:42 05/11/2024 [email or web address] [address], [place], [address], 05/11/2024 15:25:50 05/11/2024 US, pelvis completed [email or web address] [id number], [address], [place], [address], 05/11/2024 20:09:49 Procedure Notes None recorded. Medical Equipment None Reported. Allergies No known drug allergies Medications Name Sig Start Date Stop Date Status Note LastModified by Organization Details LastModified Time amoxicillin 500 mg capsule TAKE 1 CAPSULE BY MOUTH EVERY 8 HOURS 02/26 completed Not Available Not Available Not Available clindamycin HCl 300 mg capsule TAKE 1 CAPSULE ORALLY EVERY 8 HOURS FOR 12 DAYS 05/07 completed Not Available Not Available Not Available cetirizine 10 mg tablet TAKE 1 TABLET BY MOUTH EVERY DAY 05/07 completed Not Available Not Available Not Available meloxicam 15 mg tablet 15 MG ORALLY DAILY active Not Available Not Available No t Available clindamycin HCl 150 mg capsule TAKE 1 CAPSULE ORALLY EVERY 8 HOURS FOR 12 DAYS 05/07 completed Not Available Not Available Not Available penicillin V potassium 500 mg tablet TAKE 1 TABLET BY MOUTH 4 TIMES A DAY FOR 7 DAYS 07/25 completed Not Available Not Available Not Available metronidazo le 500 mg tablet TAKE 4 TABLETS TODAY 08/27 completed Not Available Not Available Not Available triamcinolo ne acetonide 0.1 % topical cream 06/30 completed Not Available Not Available Not Available amoxicillin 500 mg tablet TAKE 1 TABLET BY MOUTH 3 TIMES A DAY 08/27 completed Not Available Not Available Not Available ketorolac 10 mg tablet TAKE 1 TABLET BY MOUTH EVERY 6 HOURS FOR 2 DAYS 05/07 completed Not Available Not Available Not Available folic acid 1 mg tablet TAKE 1 TABLET DAILY active Not Available Not Available No t Available methylpredn isolone 4 mg tablets in a dose pack TAKE 6 TABLETS ON DAY 1 DIRECTED ON PACKAGE AND DECREASE BY 1 TAB EACH DAY FOR A TOTAL OF 6 DAYS 05/07 completed Not Available Not Available Not Available albuterol sulfate HFA 90 mcg/actuati on aerosol inhaler INHALE 1 PUFF BY MOUTH EVERY 4 HOURS NEEDED active Not Available Not Available No t Available morphine 15 mg immediate release tablet TAKE A HALF TABLET TO 1 TABLET EVERY 4-6 HOURS NEEDED FOR PAIN 05/07 completed Not Available Not Available Not Available ondansetron 4 mg disintegrat ing tablet TAKE 1 TABLET BY MOUTH EVERY 6-8 HOURS NEEDED FOR NAUSEA AND VOMITING 05/07 completed Not Available Not Available Not Available cefdinir 300 mg capsule 1 CAP BY MOUTH 2 TIMES PER DAY FOR 10 DAYS 05/07 completed Not Available Not Available Not Available doxycycline hyclate 100 mg tablet TAKE 1 TABLET BY MOUTH EVERY DAY 05/07 completed Not Available Not Available Not Available metoclopram nitin 10 mg tablet TAKE 1 TABLET BY MOUTH EVERY 6 HOURS NEEDED 05/07 completed Not Available Not Available Not Available amoxicillin 875 mg-potassiu m clavulanate 125 mg tablet TAKE 1 TABLET BY MOUTH EVERY 12 HOURS 05/07 completed Not Available Not Available Not Available Serina Fe 1.5/30 (28) 1.5 mg-30 mcg (21)/75 mg (7) tablet Take 1 tablet every day by oral route. active Not Available Not Available No t Available Vitals Date Recorded Body height Body mass index (BMI) Body weight Systolic blood pressure Diastolic blood pressure Provider Name and Address Organization Details Last Updated DateTime 06/30/2023 156.21 cm 29.2 kg/m2 46334 g 125 mm[Hg] 74 mm[Hg] Amber Kim [facility] 4 10:20:38 Date Recorded Body height Body mass index (BMI) Body weight Systolic blood pressure Diastolic blood pressure Provider Name and Address Organization Details Last Updated DateTime 05/07/2024 156.21 cm 33.5 kg/m2 77578.63 g 134 mm[Hg] 83 mm[Hg] [facility] 4 14:19:34 Date Recorded Body height Body mass index (BMI) Body weight Systolic blood pressure Diastolic blood pressure Provider Name and Address Organization Details Last Updated DateTime 05/13/2024 156.21 cm 33.5 kg/m2 57418.63 g 121 mm[Hg] 84 mm[Hg] [facility] 4 12:27:43 Date Recorded Body height Body mass index (BMI) Body weight Systolic blood pressure Diastolic blood pressure Provider Name and Address Organization Details Last Updated DateTime 05/25/2024 156.21 cm 34.2 kg/m2 48120 g 129 mm[Hg] 82 mm[Hg] [facility] 4 12:24:46 Social History Question Answer Notes LastModified by Organizat ion Details LastModified Time Tobacco Smoking Status Never Smoker [facility] 08/27/2022 09:51:38 What Is Your Level Of Alcohol Consumption? None [email or web address] Information not available 07/25/2022 If You Are , What Was Your Level Of Alcohol Consumption Prior To ? Occasional [email or web address] Information not available 08/27/2022 Are You Blind Or Do You Have Difficulty Seeing? No [email or web address] Information not available 07/25/2022 What Is Your Level Of Caffeine Consumption? Moderate [email or web address] Information not available 07/25/2022 How Much Tobacco Do You Chew? None [email or web address] Information not available 07/25/2022 In The 14 Days Before Symptom Onset, Have You Had Close Contact With A Laboratory-confir med COVID-19 While That Case Was Ill? No [email or web address] Information not available 07/25/2022 In The 14 Days Before Symptom Onset, Have You Had Close Contact With A Person Who Is Under Investigation For COVID-19 While That Person Was Ill? No [email or web address] Information not available 07/25/2022 Have You Been To An Area Known To Be High Risk For COVID-19? No [email or web address] Information not available 07/25/2022 Are You Deaf Or Do You Have Serious Difficulty Hearing? No [email or web address] Information not available 07/25/2022 What Type Of Diet Are You Following? REGULAR [email or web address] Information not available 07/25/2022 Do You Or Have You Ever Used E-cigarettes Or Vape? Current User Of Electronic Cigarettes [email or web address] Information not available 08/27/2022 What Is The Highest Grade Or Level Of School You Have Completed Or The Highest Degree You Have Received? MC45324-8 [email or web address] Information not available 07/25/2022 What Is Your Occupation? [employer] Information not available 07/25/2022 Are There Any Guns Present In Your Home? No Information not available 07/25/2022 Do You Use Protection During Sex? No [email or web address] Information not available 07/25/2022 Do You Use Your Seat Belt Or Car Seat Routinely? Yes [email or web address] Information not available 07/25/2022 Do You Have Smoke And Carbon Monoxide Detectors In Your Home? Yes Information not available 07/25/2022 How Much Tobacco Do You Smoke? No [email or web address] Information not available 07/25/2022 Do You Feel Stressed (tense, Restless, Nervous, Or Anxious, Or Unable To Sleep At Night)? [id number] Information not available 07/25/2022 Do You Use Any Illicit Or Recreational Drugs? No [email or web address] Information not available 07/25/2022 Do You Use Sunscreen Routinely? No [email or web address] Information not available 07/25/2022 Has Tobacco Cessation Counseling Been Provided? No [email or web address] Information not available 08/27/2022 Have You Used IV Drugs? No Information not available 07/25/2022 Do You Or Have You Ever Used Any Other Forms Of Tobacco Or Nicotine? Yes [email or web address] Information not available 08/27/2022 Sex: Unknown Functional Status Question Answer Note LastModified by Organizat ion Details LastModified Time Do you have difficulty walking or climbing stairs? No [email or web address] Information not available 08/27/2022 Are you able to walk? YESWOREST [email or web address] Information not available 07/25/2022 Are you able to care for yourself? Yes [email or web address] Information not available 08/27/2022 Do you have difficulty dressing or bathing? No [email or web address] Information not available 08/27/2022 What is your exercise level? Occasional [email or web address] Information not available 07/25/2022 Mental Status None recorded. Family History Relationship Description Onset Age of this Age Resolved Age Notes LastModified by Organization Details LastModified Time Maternal Grandfather Malignant tumor of lung [email or web address] Not available 08/27 10:54:04 Maternal Grandmother Malignant tumor of lung [email or web address] Not available 08/27 10:54:04 Medical History Condition Response Allergies (Food, seasonal, environmental ) N Other N Drug/Latex Allergies/Reactions N Breast Cancer N Blood Transfusion N Lung Disease N Dermatologic Disorders N Defects or Inherited Disease N Breast Problem N Gestational Diabetes N Hematologic disorders N Anesthesia Complications N History of STI Y Deep Vein Thrombosis N Polycystic ovary syndrome N Anxiety Disorder N Autoimmune disease N Arthritis N Polyps N Infertility N History of abnormal pap N Acid Reflux (GERD) N Cancer N Varicosities N Stroke N Neurologic/Epilepsy N Endometriosis N High Cholesterol N Headaches N Fibromyalgia N Kidney Disease N Heart Problems N Thyroid Problems N Kidney or Bladder Problems N GI Problems N Eating Disorder N Anemia N Art (IVF or FET) N Psychiatric Illness N Ovarian Cancer N Diabetes N Pulmonary (TB, Asthma) N Hepatitis/Liver Disease N No Past Medical History Y Eczema N Urinary Tract Infection N Abuse/Domestic Violence N Asthma N Trauma/Violence N Depression/ depression N Heart Disease N Pre-Eclampsia N Hypertension N Osteoporosis N Thrombophilias N Gynecological History Statement/Question Response Abnormal Pap N Date of LMP On BCP's at Conception? N N Was last menstrual period normal N STIs/STDs Y HPV Vaccine N Current Control Method BCPs Age at First Child 23 Date of control 12/22/2023 Are cycles usually normal N Frequency of Cycle (Q days) 0 Sexually Active? Y Menses Monthly Y Age of first menstrual cycle 14 Date of Last Pap Smear 07/25/2022 Sexual Problems? N LMP Definite N Obstetrics History GPAL:G 2 P 1 1 0 2 Type Value Full Term 1 Premature 1 Living 2 Total 2 Past Encounters Encounter ID Performer Location Encounter Start Date Encounter Closed Date Diagnosis/Indication Diagnosis SNOMED-CT Code Diagnosis ICD10 Code Diagnosis Note [id number] Danitza Owens [facility] [address],[place] [address] 07/25/2022 11:46:14 07/25/2022 13:39:14 [id number] Coral Caban [facility] [address],[place] [address] 07/25/2022 11:46:31 07/25/2022 15:13:34 Amenorrhea 17547100 N91.2 Gynecologi c examination 96454964 Z01.419 Z11.3 Z11.8 test positive 926116748 Z32.01 Risk factors addressed: Tobacco Cessation, Safe Sexual Practices, environmen hollis, work hazards, travel restrictio ns, seat belt use.Eat a health well balanced diet, avoid alcohol, tobacco, and street drugs.Enga ge in daily low impact exercise, avoid temperatur e extremes, and cat, rodent, and bird feces.Avoi d travel to areas where zika virus is a concern.Of fered cf/sma/nip t. Handouts given and discussed with patient. ildbirth classes recommende d.New OB sheet given.If previous , counseling .Pt verbalizes that she understand s the importance of above instructio ns.All questions were answered.P atient reminded to have annual well woman examinatio n and address [facility]ati [facility] . [id number] Polina Means [facility] [address],[facility] [place] [address] 08/27/2022 09:51:33 08/27/2022 12:12:37 screening 153391464 Z36.82 [id number] Verito Deleon MD [facility] [address],[place] [address] 08/27/2022 10:31:01 08/27/2022 11:51:45 screening 315962360 Z36.89 Venereal d isease screening 140530602 Z11.3 Routine an tenatal care 557238551 Z34.91 [id number] Verito Deleon MD [facility] [address],[place] [address] 09/23/2022 14:39:18 09/24/2022 16:13:01 Routine care 812472567 Z34.91 [id number] Danitza Owens [facility] [address],[place] [address] 10/22/2022 09:53:35 10/22/2022 11:51:39 screening 323695559 Z36.3 [id number] Verito Deleon MD [facility] [address],[place] [address] 10/22/2022 09:53:56 10/23/2022 10:21:43 Routine care 965159874 Z34.91 Large for gestation age fetus 989012992 O36.62X1 [id number] [facility] [address],[place] [address] 11/19/2022 11:32:33 11/19/2022 12:48:44 screening 611009100 Z36.2 [id number] Verito Deleon MD [facility] [address],[place] [address] 11/19/2022 11:33:04 11/19/2022 12:48:12 Routine care 917827997 Z34.91 [id number] [facility] [address],[place] [address] 12/20/2022 08:50:17 12/20/2022 09:33:17 Uterine size for dates discrepancy 590869026 O26.849 Z3A.28 [id number] [facility] [address],[place] [address] 12/20/2022 08:54:21 12/20/2022 09:53:49 Routine care 544732915 Z34.93 [id number] Verito Deleon MD [facility] [address],[place] [address] 12/30/2022 10:58:10 12/30/2022 11:44:40 Routine care 821269703 Z34.91 Anemia of 2734 2003 O99.019 Nausea and vomiting 1693 1999 R11.2 [id number] [facility] [address],[place] [address] 01/15/2023 09:34:45 01/15/2023 10:14:25 Large for gestation age fetus 337703227 O36.63X0 Z3A.31 [id number] Verito Deleon MD [facility] [address],[place] [address] 01/15/2023 09:35:12 01/15/2023 10:28:03 Routine care 430509400 Z34.91 [id number] Danitza Owens [facility] [address],[place] [address] 01/31/2023 09:45:10 01/31/2023 11:46:29 [id number] Verito Deleon MD [facility] [address],[place] [address] 01/31/2023 09:45:37 01/31/2023 12:26:16 Routine care 746347425 Z34.91 [id number] [facility] [address],[place] [address] 02/12/2023 11:14:24 02/12/2023 12:37:15 Large for gestation age fetus 271646536 O36.63X0 Z3A.35 [id number] Verito Deleon MD [facility] [address],[place] [address] 02/12/2023 11:14:41 02/17/2023 09:53:32 Large for gestation age fetus 684126127 O36.63X0 Z3A.35 Routine an tenatal care 272387916 Z34.91 [id number] Verito Deleon MD [facility] [address],[place] [address] 02/19/2023 10:24:15 02/20/2023 22:14:51 Routine care 596644577 Z34.91 Large for gestation age fetus 016045915 O36.63X0 Z3A.35 [id number] Verito Deleon MD [facility] [address],[place] [address] 02/26/2023 10:57:13 02/26/2023 14:03:26 Routine care 692008034 Z34.91 [id number] Tejas Ghosh MD [facility] [address],[place] [address] 04/07/2023 10:05:02 04/08/2023 08:49:00 hemorrhage 71457697 O72.1 23-year-ol d female presents for vaginal bleeding. She is considerab le vaginal bleeding after vaginal . Ultrasound revealed some complex tissue within the endometria l cavity. Patient needs D& C. Made a decision to perform surgery today. We are going to proceed with suction D and C at the hospital we are going to urgently facilitate the suction D&C. Spent over 40 minutes face-to-fa ce. We discussed the procedure, we discussed risks, we discussed potential diagnoses. More than 50% of visit was counseling . We made a decision to perform surgery. [id number] Polina Means [facility] [address],[place] [address] 04/07/2023 10:08:15 04/07/2023 10:44:18 Abnormal uterine bleeding 1024179687 9100 N93.9 [id number] Tejas hGosh MD [facility] [address],[place] [address] 04/17/2023 10:59:42 04/17/2023 12:17:16 hemorrhage 34825544 O72.1 23-year-ol d female who had some bleeding. She would retained placenta. D&C was performed For retained placenta. She continues have a little bit of bleeding here and there. We would like to confirm that there was no more retained placenta. She showed me a picture of some glenn red bleeding that was significan t. She needs ultrasound to rule out persistent retained products. [id number] [facility] [address],[place] [address] 04/17/2023 12:16:10 04/17/2023 13:23:02 Abnormal uterine bleeding 9563456770 9100 N93.9 [id number] Polina Means [facility] [address],[place] [address] 06/30/2023 09:32:14 06/30/2023 10:15:52 [id number] VISHAL GONCALVES MD [facility] [address],[place] [address] 06/30/2023 09:33:27 06/30/2023 10:48:38 test positive 567203011 Z32.01 1. Exam today within normal limits.2. Ultrasound today confirms GA and viability. EDC . GC/Clamydi a testing done: will f/u as indicated. 4. ACOG guidelines and plan of care for reviewed with patient. All questions answered.5 . Return to office at 12 weeks for new OB visit6. Will need new OB labs at next visit.7. Genetic screening: desires. Close interval , last delivery 02/2023; discussed risks of PTL, FGR, as well as importance of vitamins. Last complicate d by retained placenta requiring D&C 1 month [id number] Tejas Ghosh MD [facility] [address],[place] [address] 05/07/2024 13:50:49 05/10/2024 05:47:56 Abnormal uterine bleeding 2629703185 9100 N93.9 [id number] [facility] [address],[place] [address] 05/11/2024 11:55:57 05/11/2024 13:10:38 Abnormal uterine bleeding 5417419555 9100 N93.9 [id number] Tejas Ghosh MD [facility] [address],[place] [address] 05/13/2024 11:58:38 05/13/2024 14:45:18 Menorrhagia 553981349 N92.0 This patient is a 24-year-ol d female presents for follow-up on pelvic ultrasound and abnormal uterine bleeding. She reports severe menorrhagi a throughout her life. More recently he has become irregular. Her laboratory evaluation is not back yet. We discussed her ultrasound results. She has a fullness in the anterior myometrium . There is some heterogene ity. No discrete mass/ fibroid can be appreciate d there. It is diffusely echogenic in this area. I showed her the images of her uterus. We discussed the findings. We discussed the significan ce. We discussed treatment options in detail. I discussed hormonal contracept karthik options for controllin g and diminishin g bleeding. We also talked about procedures . We talked about endometria l ablation and salpingect akhil. I spoke to her about the procedures in detail. I spent over 20 minutes on the patient's care in total. We await laboratory report. She is seriously considerin g endometria l ablation. She will return and we will discuss the Labs and form a treatment plan. Irregular intermenstrual bleeding 62779460 N92.1 [id number] Tejas Ghosh MD [facility] [address],[place] [address] 05/25/2024 11:44:53 05/26/2024 01:42:26 Menorrhagia 889435063 N92.0 this patient is a 24-year-ol d female with severe menorrhagi a, and uterine fibroids. Patient presents today to follow-up on ultrasound and laboratory results. We discussed treatment options. We again reviewed the endometria l ablation with tubal ligation. Patient would like definitive surgical cure for her bleeding. She would like to proceed with hysterecto my. we discussed surgical removal of the uterus and tubes. Discussed technical aspects. The patient understand s the procedure. The procedure was described to the patient in great detail. the patient also understand s the risks. The risks were also explained in detail. She understand s that injuries May occur during surgery. She understand s these injuries can result in hospitaliz ation, more surgery, and severe illness. She understand s there is risk of hemorrhage and infection. We have agreed to proceed with robotic assisted hysterecto my with bilateral salpingect akhil. I spent more than 30 minutes on the patient's care. Uterine leiomyoma 678770 05 D25.9 Health Concerns Section Related Observation LastModified by Organization Detai ls LastModified Time None Recorded Concern Status LastModified by Organization Details LastModified Time None Recorded Advance Directives Directive None Recorded Payers Encounter Date Sequence Insurance Name Policy Number Policy Matson Covered Member ID Matson Member ID Guarantor Name 06/30/2023 1 *SELF PAY* Ba lakisha Shin 05/07/2024 1 [facility] (MEDICAID HMO) [id number] Marita Shin [id number] Marita Shin 05/11/2024 1 [facility] (MEDICAID HMO) [id number] Marita Shin [id number] Marita Shin 05/13/2024 1 [facility] (MEDICAID HMO) [id number] Marita Shin [id number] Marita Shin 05/25/2024 1 [facility] (MEDICAID HMO) [id number] Marita Shin [id number] Marita Shin Notes Date Note Type Note Provider Name and Address Organization Details Recorded Time 06/30/2023 text/html Presents to the office today to confirm . This was a planned . Patient denies any problems up to this point with her . Patient denies cramping or vaginal bleeding. Mild nausea, +food aversions. Has zofran from last . G1: 02/2023, retained placenta, needed D&C 1 month ; formula feeding. Patient is for 3 years. Lives with partner, baby, and 12 dogs. Her son's name is Jevon. 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 Denies EtOH/illicits. Vaping daily, 5%. Desires genetic testing. VISHAL GONCALVES MD [address], [place], [address], [facility] 06/30/2023 10:41:07 05/07/2024 text/html 24-year-old fema le with irregularly irregular bleeding. It is heavy at times. She is 6 months post Depo-Provera shot approximately. She denies any abnormal vaginal discharge. She denies any pelvic pain she denies any dizziness, shortness of breath. Tejas Ghosh MD [address], [place], [address], [facility] 05/07/2024 21:05:15 05/13/2024 text/html This patient is a 24-year-old female presents for follow-up on pelvic ultrasound and abnormal uterine bleeding. She reports severe menorrhagia throughout her life. More recently he has become irregular. Her laboratory evaluation is not back yet. We discussed her ultrasound results. She has a fullness in the anterior myometrium. There is some heterogeneity. No discrete mass/ fibroid can be appreciated there. It is diffusely echogenic in this area. I showed her the images of her uterus. We discussed the findings. We discussed the significance. We discussed treatment options in detail. I discussed hormonal contraceptive options for controlling and diminishing bleeding. We also talked about procedures. We talked about endometrial ablation and salpingectomy. I spoke to her about the procedures in detail. I spent over 20 minutes on the patient's care in total. We await laboratory report. She is seriously considering endometrial ablation. She will return and we will discuss the Labs and form a treatment plan. Tejas Ghosh MD [address], [place], [address], [facility] 05/13/2024 14:41:14 05/25/2024 text/html this patient is a 24-year-old female with severe menorrhagia, and uterine fibroids. Patient presents today to follow-up on ultrasound and laboratory results. We discussed treatment options. We again reviewed the endometrial ablation with tubal ligation. Patient would like definitive surgical cure for her bleeding. She would like to proceed with hysterectomy. we discussed surgical removal of the uterus and tubes. Discussed technical aspects. The patient understands the procedure. The procedure was described to the patient in great detail. the patient also understands the risks. The risks were also explained in detail. She understands that injuries May occur during surgery. She understands these injuries can result in hospitalization, more surgery, and severe illness. She understands there is risk of hemorrhage and infection. We have agreed to proceed with robotic assisted hysterectomy with bilateral salpingectomy Tejas Ghosh MD [address], [place], [address], [place] [facility] 05/25/2024 21:57:52 OBGyn Episode Ob Episode Information Episode Created Date Number of Fetuses Patient Bloodtype Patient rh Status Prepregnancy Weight lbs Domestic Partner Domestic Partner Phone Father Name Engraver Status 08/28/19 23 1 O Positive 124 Luke Tez CLOSED Fetus Data First Name Last Name Admitted to NICU Weight (g) Sex Living Outcome Pediatric Complications Fetus ID Race Codes Race Delivery Type [place] 3458.63 9 M true Full Term [id number] Vaginal Delivery Problems Problem Notes carrier screen neg Problem Name Start Date End Date Resolution Snomed Code Not e Large for gestation age fetus FOB was 10-15 a t at 34w. 91% and 99% AC at 36w Anemia of 12/30/2022 85103357 Infection by Trichomonas [id number] ANDREW 08/27, retest 3rd trimester Electronic cigarette user [id number] encouraged cess ation Marijuana user [id number] encou raged cessation Anemia 12/23/2022 MEDICATION [id number] 1 tab sl owfe daily Mika Calculation Initial Mika Date Initial Exam Date Initial Exam Provider Initial Ultrasound Date Last Menstrual Period Date Ultra Sound Weeks Gestation 03/13/2023 07/25/2022 07/25/2022 06/06/2022 7 Eighteen To Twenty Week Mika Update Ultra Sound Date Fundal Height At Umbil Quickening Date Ultra Sound Latest Weeks Gestation Final Mika Confirmed By Final Mika Confirmed Date Final Mika Date Ultra Sound Latest Days Gestation 08/28/19 23 12 [email or web address] 08/27/2022 03/13/20 23 3 Pre- Flowsheet Flowsheet Date 08/27/2022 Flower Score Blood Edema Fundus Height Fundus Units Glucose Ketones Leukocytes Nitrite Labor Signs Protein Cervic Dilation Cervic Effacement Cervic Station neg none none trace Type Weight in lbs Pre/Post Dialysis Refused Weight 131.233783652669 BP Diastolic BP Location Tested BP Systolic BP Type 70 108 Fetus Heart Rate Present A 150 Fetus Movement A No Comments Marita is a 22yo G1 at 11.5 for care. Her history is noncontributory. She was pos for trich 4 weeks ago and ANDREW sent today. No other history of STDs. She vapes and uses MJ, discussed potential risks of both and encouraged cessation. Normal NT today. Labs and NIPT today. Routine care. Flowsheet Date 09/23/2022 Flower Score Blood Edema Fundus Height Fundus Units Glucose Ketones Leukocytes Nitrite Labor Signs Protein Cervic Dilation Cervic Effacement Cervic Station none Type Weight in lbs Pre/Post Dialysis Refused Weight 134.031449967353 BP Diastolic BP Location Tested BP Systolic BP Type 70 105 Fetus Heart Rate Present A 155 Fetus Movement A No Comments Feeling well. Trich ANDREW was neg. Is using MJ about 10x/day still and vaping much more than that. Seems unmotivated to cut down, encouraged to come up with a concrete plan to decrease and quit. Anatomy US next visit. Flowsheet Date 10/22/2022 Flower Score Blood Edema Fundus Height Fundus Units Glucose Ketones Leukocytes Nitrite Labor Signs Protein Cervic Dilation Cervic Effacement Cervic Station Type Weight in lbs Pre/Post Dialysis Refused BP Diastolic BP Location Tested BP Systolic BP Type Fetus Heart Rate Present Fetus Movement Comments Flowsheet Date 10/22/2022 Flower Score Blood Edema Fundus Height Fundus Units Glucose Ketones Leukocytes Nitrite Labor Signs Protein Cervic Dilation Cervic Effacement Cervic Station neg trace none trace Type Weight in lbs Pre/Post Dialysis Refused Weight 138.740717605606 BP Diastolic BP Location Tested BP Systolic BP Type 68 122 Fetus Heart Rate Present A 145 Fetus Movement A Yes Comments Doing well. Anatomy complete and wnl except for face, diaphragm and some heart views incomplete. Will complete next visit. EFW 94%, will watch growth as well. FOB was 10-15 at 34w when he was born. Flowsheet Date 11/19/2022 Flower Score Blood Edema Fundus Height Fundus Units Glucose Ketones Leukocytes Nitrite Labor Signs Protein Cervic Dilation Cervic Effacement Cervic Station Type Weight in lbs Pre/Post Dialysis Refused BP Diastolic BP Location Tested BP Systolic BP Type Fetus Heart Rate Present Fetus Movement Comments Flowsheet Date 11/19/2022 Flower Score Blood Edema Fundus Height Fundus Units Glucose Ketones Leukocytes Nitrite Labor Signs Protein Cervic Dilation Cervic Effacement Cervic Station neg trace none trace Type Weight in lbs Pre/Post Dialysis Refused Weight 144.304526940650 BP Diastolic BP Location Tested BP Systolic BP Type 77 128 Fetus Heart Rate Present A 140 Fetus Movement A Yes Comments Doing well, feeling better, using zofran less. smoking (both) less, trying to quit by 30w. GCT next visit. US today anatomy now complete and wnl. EFW 89% with HC 99%. will do growth 28-30w. Flowsheet Date 12/20/2022 Flower Score Blood Edema Fundus Height Fundus Units Glucose Ketones Leukocytes Nitrite Labor Signs Protein Cervic Dilation Cervic Effacement Cervic Station Type Weight in lbs Pre/Post Dialysis Refused BP Diastolic BP Location Tested BP Systolic BP Type Fetus Heart Rate Present Fetus Movement Comments Flowsheet Date 12/20/2022 Flower Score Blood Edema Fundus Height Fundus Units Glucose Ketones Leukocytes Nitrite Labor Signs Protein Cervic Dilation Cervic Effacement Cervic Station neg none none trace Type Weight in lbs Pre/Post Dialysis Refused Weight 147.432255564919 BP Diastolic BP Location Tested BP Systolic BP Type 69 114 Fetus Heart Rate Present Fetus Movement A Yes Comments patient states that having s ome pain, cramping, discharge, nausea and vomiting. taking zofran sxs are improving, cramping better with increased hydration. GCT today, ok for tdap, efw 74% HC 98%. precautions reviewed. 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 weeks Flowsheet Date 12/30/2022 Flower Score Blood Edema Fundus Height Fundus Units Glucose Ketones Leukocytes Nitrite Labor Signs Protein Cervic Dilation Cervic Effacement Cervic Station Type Weight in lbs Pre/Post Dialysis Refused BP Diastolic BP Location Tested BP Systolic BP Type Fetus Heart Rate Present Fetus Movement Comments Flowsheet Date 12/30/2022 Flower Score Blood Edema Fundus Height Fundus Units Glucose Ketones Leukocytes Nitrite Labor Signs Protein Cervic Dilation Cervic Effacement Cervic Station none 30 Type Weight in lbs Pre/Post Dialysis Refused Weight 149.391569996448 BP Diastolic BP Location Tested BP Systolic BP Type 72 113 Fetus Heart Rate Present A 145 Fetus Movement A Yes Comments Doing well. Some upset stoma ch still intermittently, zofran refgilled. US next visit for HC >98%. GCT wnl, anemic, just started iron. Routine care. Flowsheet Date 01/15/2023 Flower Score Blood Edema Fundus Height Fundus Units Glucose Ketones Leukocytes Nitrite Labor Signs Protein Cervic Dilation Cervic Effacement Cervic Station Type Weight in lbs Pre/Post Dialysis Refused BP Diastolic BP Location Tested BP Systolic BP Type Fetus Heart Rate Present Fetus Movement Comments Flowsheet Date 01/15/2023 Flower Score Blood Edema Fundus Height Fundus Units Glucose Ketones Leukocytes Nitrite Labor Signs Protein Cervic Dilation Cervic Effacement Cervic Station neg none 31 none trace Type Weight in lbs Pre/Post Dialysis Refused Weight 147.330178461821 BP Diastolic BP Location Tested BP Systolic BP Type 79 121 Fetus Heart Rate Present A 140 Fetus Movement A Yes Comments Doing well, no concerns. Dis cussed and encouraged Tdap., will do. US today 69% but head 99%. Repeat 4w. Flowsheet Date 01/31/2023 Flower Score Blood Edema Fundus Height Fundus Units Glucose Ketones Leukocytes Nitrite Labor Signs Protein Cervic Dilation Cervic Effacement Cervic Station Type Weight in lbs Pre/Post Dialysis Refused BP Diastolic BP Location Tested BP Systolic BP Type Fetus Heart Rate Present Fetus Movement Comments Flowsheet Date 01/31/2023 Flower Score Blood Edema Fundus Height Fundus Units Glucose Ketones Leukocytes Nitrite Labor Signs Protein Cervic Dilation Cervic Effacement Cervic Station neg none none trace Type Weight in lbs Pre/Post Dialysis Refused Weight 152.513275128355 BP Diastolic BP Location Tested BP Systolic BP Type 83 125 Fetus Heart Rate Present A 150 Fetus Movement A Yes Comments Doing well. No concerns. GBS next, will also repeat std testing then. Has not done Tdap yet. Growth US next visit. Flowsheet Date 02/12/2023 Floewr Score Blood Edema Fundus Height Fundus Units Glucose Ketones Leukocytes Nitrite Labor Signs Protein Cervic Dilation Cervic Effacement Cervic Station Type Weight in lbs Pre/Post Dialysis Refused BP Diastolic BP Location Tested BP Systolic BP Type Fetus Heart Rate Present Fetus Movement Comments Flowsheet Date 02/12/2023 Flower Score Blood Edema Fundus Height Fundus Units Glucose Ketones Leukocytes Nitrite Labor Signs Protein Cervic Dilation Cervic Effacement Cervic Station neg trace none trace 3cm 50% -3 Type Weight in lbs Pre/Post Dialysis Refused Weight 157.274407895049 BP Diastolic BP Location Tested BP Systolic BP Type 79 124 Fetus Heart Rate Present A 155 Fetus Movement A Yes Comments Doing well, just getting unc omfortable. US today 91% with AC >99%. Discussed risks of LGA including risks of shoulder dystocia and possible sequelae. With favorable cervix, may labor earlier. GBS and STD testing done. Labor precautions. Flowsheet Date 02/19/2023 Flower Score Blood Edema Fundus Height Fundus Units Glucose Ketones Leukocytes Nitrite Labor Signs Protein Cervic Dilation Cervic Effacement Cervic Station neg none 39 none trace 3cm 50% -2 Type Weight in lbs Pre/Post Dialysis Refused Weight 161.583471579593 BP Diastolic BP Location Tested BP Systolic BP Type 67 132 Fetus Heart Rate Present A 150 Fetus Movement A Yes Comments Doing fine. GBS and STD test ing neg. Would like 39w IOL, discussed induction process, risks. Will schedule. Precautions given. Flowsheet Date 02/26/2023 Flower Score Blood Edema Fundus Height Fundus Units Glucose Ketones Leukocytes Nitrite Labor Signs Protein Cervic Dilation Cervic Effacement Cervic Station neg none 36 none trace 4cm 70% -2 Type Weight in lbs Pre/Post Dialysis Refused Weight 165.013873163417 BP Diastolic BP Location Tested BP Systolic BP Type 80 138 Fetus Heart Rate Present A 135 Fetus Movement A Yes Comments Doing fine, occasional ctx. IOL next Friday at [facility]. Discussed IOL. Precautions given. Menstrual History Last Menstrual Date Menses Monthly On Bcp Conception Prior Menses Frequency Hcg Plus Date Menarche Onset Age 1206/06/2022 Genetic Screening And Infection History Question Response Note Mental Retardation/Autism false Patient's Age Will Be 35 Years Or Older At Estim ated Date of Delivery false Thalassemia (Syrian, Syriac, Mediterranean, Or Background): MCV < 80 false Neural Tube Defect (Meningomyelocele, Spina Bifi da, Or Anencephaly) false Congenital Heart Defect false Down Syndrome false Bryon-Sachs (eg, Muslim, Cajun, Mohawk-Evans) f alse Gerardo Disease false Sickle Cell Disease Or Trait () false Hemophilia Or Other Blood Disorders false Muscular Dystrophy false Cystic Fibrosis false Raymond's Chorea false Intellectual Disability/Autism false If Yes, Was Person Tested For Fragile X? false Other Inherited Genetic Or Chromosomal Disorder false Maternal Metabolic Disorder (eg, Type 1 Diabetes , PKU) false Patient Or Baby's Father Had A Child With Defects Not Listed Above false Recurrent Loss, Or A Stillbirth false Medications (including Suppl ements, Vitamins, Herbs, OTC Drugs), Illicit/Recreational Drugs, Alcohol true If Yes, Agent(s) And Strength/Dosage false Any Other Genetic History false Live With Someone With TB Or Exposed To TB false Patient Or Partner Has History Of Genital Herpes false Rash Or Viral Illness Since Last Menstrual Perio d false History Of STD, Gonorrhea, Chlamydia, HPV, Syphi lis true Other Infection History false History of HIV false History of Hepatitis false Prior GBS-infected child false Hemoglobinopathy Or Carrier false Other Structural Defect false Recent Travel History Outside of Country false Delivery Information Delivery Date Delivery Type Labor Anesthesia Weeks Gestation Incision Type Labor Labor Length Hrs Delivered By Post Complications Tubal Sterilization Discharge Date Comments 3 Janjeremías [facility] idural 38.1 Verito Deleon MD Anemia, Electroni c cigarette user, Infection by Trichomon as, Large for gestation age fetus, Marijuana user Discharge Information Feeding Method Contraceptive Method Maternal HG B and HCT Levels Ob Episode Information Episode Created Date Number of Fetuses Patient Bloodtype Patient rh Status Prepregnancy Weight lbs Domestic Partner Domestic Partner Phone Father Name Engraver Status 05/07/20 24 1 CLOSED Fetus Data First Name Last Name Admitted to NICU Weight (g) Sex Living Outcome Pediatric Complications Fetus ID Race Codes [place] [id number] Primary Mika Calculation Initial Mika Date Initial Exam Date Initial Exam Provider Initial Ultrasound Date Last Menstrual Period Date Ultra Sound Weeks Gestation 0 Eighteen To Twenty Week Mika Update Ultra Sound Date Fundal Height At Umbil Quickening Date Ultra Sound Latest Weeks Gestation Final Mika Confirmed By Final Mika Confirmed Date Final Mika Date Ultra Sound Latest Days Gestation 0 0 Menstrual History Last Menstrual Date Menses Monthly On Bcp Conception Prior Menses Frequency Hcg Plus Date Menarche Onset Age Delivery Information Delivery Date Delivery Type Labor Anesthesia Weeks Gestation Incision Type Labor Labor Length Hrs Delivered By Post Complications Tubal Sterilization Discharge Date Comments 4 Discharge Information Feeding Method Contraceptive Method Maternal HG B and HCT Levels
--- OUTSIDE RECORDS SUMMARY | 2024-08-07 13:27 | XMS_ITS | Encounter Summary ---
Author Organization [facility] Address [facility] [place] [address] Care Team Providers Care Mission Coordinator Name Role Phone None, Provider Primary Care Provider Jennya ble Encounter Details Date Type Department Care Team (Late st Contact Info) Description 2001 Abstract SFL CONVERSION [address] [address] , Generic Conversion, Social History Tobacco Use Types Packs/Day Years Used Date Smoking Tobacco: Never Assessed Comments Unknown Sex and Gender Information Value Date Recorded Sex Assigned at Female 12/16/2023 4:21 AM CDT Legal Sex Female 7:05 AM CDT Gender Identity Female 12/16/2023 4:21 AM CDT Sexual Orientation Straight 12/16/2023 4: 21 AM CDT documented as of this encounter Plan of Treatment Not on file documented as of this encounter Visit Diagnoses Not on filedocumented in this encounter Care Teams Mission Coordinator Relationship Specialty Start Date End Date None, Provider, PCP - General 05/19/21 documented as of this encounter
--- NOTE | 2024-08-07 13:33 | ED_ITS ---
HPI - Dental/Oral General Chief complaint: Dental/Oral Stated complaint: dental pain Time Seen by Provider: 08/07/24 13:33 Source: patient Mode of arrival: ambulatory Limitations: no limitations History of Present Illness HPI Narrative: This is an 24-year-old female with some dental pain left upper molar with surrounding gum inflammation with no fever chills no shortness of breath no nausea vomiting. MD Complaint: tooth pain Teeth map: 2 1. left upper molar pain with surrounding gum inflammation. Onset (ago): day(s) Duration: constant Severity: mild Relieving factors: NSAIDs Related Data Allergies Allergy/AdvReac Type Severity Reaction Status Date / Time No Known Allergies Allergy Verified 08/07/24 13:26 Review of Systems 2 Review of Systems: All systems reviewed & are unremarkable except as noted in HPI and below PMFSH Past Medical History Medical History Anemia History of psychiatric hospitalization Suicide attempt by overdose Rash Surgical History Surgical History H/O oral surgery by overdose Family History Family History Mother Healthy adult Father Healthy adult Grandparent Lung cancer Social History Social History Years smoked: 3 Smoking status: Never smoker Tobacco type: e-cigarettes/vaping Second hand tobacco smoke exposure: No Alcohol intake: never Substance use: never Substance use type: does not use Do You Feel Safe in your Home?: Yes Lack of Transportation: No Lack of Food: Never True Current Housing: I Have Housing Concerned About Future Housing: No Difficulty Paying Gas/Electric Bills: No Difficulty Paying for Meds: No Currently Unemployed: No Education: High School Diploma/GED Difficulty w/ Childcare or Family Care: No Living arrangements: with family Additional living arrangements comments: with mother Occupation/Education: occupation Additional occupation/education comments: [employer] Gender identity (if verbalized by the patient): Female Spiritual care concerns: No Exam 2 Const: General: healthy appearing and no acute distress Nutritional Appearance: well nourished Orientation/consciousness: patient oriented x3 Limitations: no limitations HENMT: Other: Dental pain left upper molar with surrounding gum inflammation Neck: Neck: normal visual inspection, no lymphadenopathy and no meningeal signs Chest: Chest palpation & inspection: normal inspection of the chest Resp: Effort & Inspection: normal respiratory effort Auscultation: clear to auscultation bilaterally Cardio: Rate: regular rate Rhythm: regular rhythm Course Course Emergency Course: patient with dental abscess will send antibiotics to her local pharmacy. Vital Signs Vital signs: Vital Signs Temperature 37.1 C 08/07/24 13:27 Pulse Rate 94 08/07/24 13:27 Respiratory Rate 18 08/07/24 13:27 Blood Pressure 145/90 H 08/07/24 13:27 Pulse Oximetry 99 08/07/24 13:27 Oxygen Delivery Room Air 08/07/24 13:27 Temperature 37.1 C 08/07/24 13:27 Pulse Rate 94 08/07/24 13:27 Respiratory Rate 18 08/07/24 13:27 Blood Pressure 145/90 H 08/07/24 13:27 Pulse Oximetry 99 08/07/24 13:27 Oxygen Delivery Room Air 08/07/24 13:27 Critical Care Time Critical Care Time Critical Care Time: No Discharge Plan Discharge Clinical Impression: Toothache, Dental abscess Patient Disposition: Home, Self-Care Condition: Stable Instructions: Antibiotic Form, Dental Abscess (ED), Toothache (ED) Additional Instructions: Advised take antibiotics as prescribed and follow-up with Primary/dentist within 1 to 2 weeks further evaluation treatment. Patient Language: Urdu Prescriptions: New amoxicillin-pot clavulanate [Augmentin] 500-125 mg tablet 1 tablet PO TID Qty: 30 0RF No Action norethindrone-e.estradiol-iron [Loestrin Fe 1.5/30 (28-Day)] 1.5 mg-30 mcg (21)/75 mg (7) tablet 1 tablet PO DAILY Qty: 84 0RF Follow-up/Referrals: Cristhian Torres DO [Primary Care Provider] - Stand Alone Forms: Work/School Release IP Time of Disposition: 13:36
[2024-08-07 13:40] VITALS: BP 145/90; PULSE 94; RESP 18; TEMP 37.1; O2SAT 99
== END 2024-08-07 13:40 | disposition home or self-care (01) ==
PROVIDERS: Emergency Provider Emergency Medicine; PCP Family Medicine
DX: K04.7 Periapical abscess without sinus (principal)
CPT/HCPCS: 99283

== ENCOUNTER 2024-08-08 07:59 | Emergency (ER) | payer OTHER, SELFPAY ==
--- OUTSIDE RECORDS SUMMARY | 2024-08-08 08:01 | XMS_ITS | Clinical Summary ---
Author Organization [facility] Address [facility] [place] [address] Care Team Providers Care Obedience Trainer Name Role Phone None, Provider MD Primary [...] Date Non-reassuring electronic fe hollis monitoring tracing ([facility]) 12/16/2023 NST (non-stress test) nonreactive 12/15/2023 Social [...] from your doctor or pharmacy? Never 10/08/2023 [facility] Utilities Answer Date Recorded In the past 12 months has [facility] [employer], [employer], or [employer] threatened to shut off services in your [...] often do you attend chur ch or yarsanism services? Never 10/08/2023 Do you belong to any clubs o r organizations such as buddhism groups, unions, fraternal or athletic groups, or [...] and heating? Not hard at all 10/08/2023 [facility] [place] [facility] - Occupational Stress [...] any time in the past 12 m [facility], were you homeless or living in a long-term (including now)? No 10/08/2023 Depression Answer Date [...] 4:51 AM 12/16/2023 9:44 PM Care Teams Obedience Trainer Relationship Specialty Start Date End Date None, Provider, PCP - General 05/19/21
--- OUTSIDE RECORDS SUMMARY | 2024-08-08 08:01 | XMS_ITS | Encounter Summary ---
Author Organization [facility] Address [facility] [place] [address] Care Team Providers Care Business Services Intern Name Role Phone None, Provider Primary Care Provider Jennya ble Encounter Details Date Type Department Care Team (Late st Contact Info) Description 2001 Abstract SFL CONVERSION [address] [place] [address] , Generic Conversion, Social History [...] on filedocumented in this encounter Care Teams Business Services Intern Relationship Specialty Start Date End Date None, Provider, PCP - General 05/19/21 documented as of this encounter
[2024-08-08 08:06] VITALS: BP 144/94; PULSE 93; RESP 18; TEMP 36.9; O2SAT 93
--- NOTE | 2024-08-08 08:13 | ED_ITS ---
HPI - Dental/Oral General Chief complaint: Dental/Oral Stated complaint: facial swelling Time Seen by Provider: 08/08/24 08:03 Source: patient Mode of arrival: ambulatory Limitations: no limitations History of Present Illness HPI Narrative: 24-year-old female with a history of extensive dental caries presented to the ED yesterday for left upper pre molar pain and swelling. She received Augmentin. Today she presents with swelling of the left cheek and pain around the left 2nd premolar. The patient has a history of periodontal disease with odontogenic abscess in February of last year. The tooth was never extracted. She presents with pain and swelling around the left upper premolars. No fever or chills. MD Complaint: tooth pain Teeth map: 2 1. Tenderness around the 2nd premolar. Swelling of the cheek /maxilla around the 2nd premolar. Onset (ago): day(s) Duration: constant Severity: severe Exacerbating factors: cold and heat Context: history of dental caries Treatment prior to arrival: none Related Data Allergies Allergy/AdvReac Type Severity Reaction Status Date / Time No Known Allergies Allergy Verified 08/08/24 08:08 Review of Systems 2 Review of Systems: All systems reviewed & are unremarkable except as noted in HPI and below PMFSH Past Medical History Medical History Anemia History of psychiatric hospitalization Suicide attempt by overdose Rash Surgical History Surgical History H/O oral surgery by overdose Family History Family History Mother Healthy adult Father Healthy adult Grandparent Lung cancer Social History Social History Years smoked: 3 Smoking status: Never smoker Tobacco type: e-cigarettes/vaping Second hand tobacco smoke exposure: No Alcohol intake: never Substance use: never Substance use type: does not use Do You Feel Safe in your Home?: Yes Lack of Transportation: No Lack of Food: Never True Current Housing: I Have Housing Concerned About Future Housing: No Difficulty Paying Gas/Electric Bills: No Difficulty Paying for Meds: No Currently Unemployed: No Education: High School Diploma/GED Difficulty w/ Childcare or Family Care: No Living arrangements: with family Additional living arrangements comments: with mother Occupation/Education: occupation Additional occupation/education comments: [employer] Gender identity (if verbalized by the patient): Female Spiritual care concerns: No Exam 2 Narrative: Blood pressure is 144/94. Afebrile Const: General: ill appearing Orientation/consciousness: patient oriented x3 Limitations: no limitations HENMT: Head: normal to inspection Ears: external ears normal F angel/Nose/Sinus: Normal external nose present Mouth: Yes Normal oral and palatal mucosa present Teeth and gingiva: abnormal tooth and associated gingiva ( extensive dental caries. Pain and swelling around left upper premolars) Throat: posterior oropharynx normal Eyes: Conjunctivae: conjunctivae normal Pupils: Equal, round and reactive pupils present EOM: EOMs intact bilaterally Direct Ophthalmoscopy: no photophobia Neck: Neck: normal visual inspection and no lymphadenopathy Chest: Chest palpation & inspection: normal inspection of the chest Resp: Effort & Inspection: normal respiratory effort Auscultation: clear to auscultation bilaterally Cardio: Rate: regular rate Rhythm: regular rhythm GI: Auscultation: normal bowel sounds : General: Yes no CVA tenderness Back/Spine/Pelvis: Back: no CVA tenderness Skin: General skin exam: normal color Rashes: no rashes Wounds: no wounds Neuro: General: patient oriented x3, moves all extremities, no meningeal signs, no focal motor deficits and CN's II-XI intact bilaterally Cranial nerves: Yes Nystagmus not present Speech: normal speech Gait exam (Neuro): Normal gait present Extrem: General: normal to inspection and no clubbing, cyanosis or edema Psych: Mental Status: mental status grossly normal Affect: normal affect Attitude: cooperative Course Course Emergency Course: dental pain dental abscess/ Peridontitis-- patient was seen in the ED yesterday and prescribed Augmentin. The patient had a history of Peridontal abscess / periodontitis. the patient most likely needs to follow up with a dentist. For now would give her a tablet of Elberon and give a dose of IV Zosyn Vital Signs Vital signs: Vital Signs Temperature 36.9 C 08/08/24 08:06 Pulse Rate 93 08/08/24 08:06 Respiratory Rate 18 08/08/24 08:06 Blood Pressure 144/94 H 08/08/24 08:06 Pulse Oximetry 93 08/08/24 08:06 Oxygen Delivery Room Air 08/08/24 08:06 Temperature 36.9 C 08/08/24 08:06 Pulse Rate 93 08/08/24 08:06 Respiratory Rate 18 08/08/24 08:06 Blood Pressure 144/94 H 08/08/24 08:06 Pulse Oximetry 93 08/08/24 08:06 Oxygen Delivery Room Air 08/08/24 08:06 MDM - Dental/Oral MDM Narrative Medical decision making narrative: dental pain Peridontitis Differential Diagnosis Differential diagnosis: Likely gingival abscess, toothache and dental abscess Medical Records Attestation: I reviewed the patient's medical records. Discharge Plan Discharge Clinical Impression: Dental abscess, Toothache Patient Disposition: Home, Self-Care Condition: Stable Instructions: Antibiotic Form, Dental Abscess (ED), Toothache (ED) Patient Language: Divehi Prescriptions: No Action amoxicillin-pot clavulanate [Augmentin] 500-125 mg tablet 1 tablet PO TID Qty: 30 0RF norethindrone-e.estradiol-iron [Loestrin Fe 1.5/30 (28-Day)] 1.5 mg-30 mcg (21)/75 mg (7) tablet 1 tablet PO DAILY Qty: 84 0RF Follow-up/Referrals: Cristhian Torres DO [Primary Care Provider] - Stand Alone Forms: Work/School Release IP Time of Disposition: 09:07
[2024-08-08] MEDS: HYDROcodone/acetaminophen (*CRX) 5-325 MG TABLET 1 TAB PO (08:30)
[2024-08-08] MEDS: PIPERACILLIN/TAZ 4.5G/NS 100ML 4.5 GM/100 ML BAG IVPB (08:30)
--- OUTSIDE RECORDS SUMMARY | 2024-08-08 08:41 | XMS_ITS | Encounter Summary ---
Author Organization [facility] Address [facility] [place] [address] Care Team Providers Care Lab Aide Name Role Phone None, Provider Primary Care Provider Jennya ble Encounter Details Date Type Department Care Team (Late st Contact Info) Description 2001 Abstract SFL CONVERSION [address] [place] [address] , Generic Conversion, Social History [...] on filedocumented in this encounter Care Teams Lab Aide Relationship Specialty Start Date End Date None, Provider, PCP - General 05/19/21 documented as of this encounter
--- OUTSIDE RECORDS SUMMARY | 2024-08-08 08:41 | XMS_ITS | Clinical Summary ---
Author Organization [facility] Address [facility] [place] [address] Care Team Providers Care Bow Tacker Name Role Phone None, Provider MD Primary [...] Date Non-reassuring electronic fe hollis monitoring tracing ([facility]) 12/16/2023 NST (non-stress test) nonreactive 12/15/2023 Social [...] your doctor or pharmacy? Never 10/08/2023 [facility] Utilities Answer Date Recorded In the past 12 months has [facility] [employer], [employer], or [employer] threatened to shut off services in your [...] often do you attend chur ch or worship services? Never 10/08/2023 Do you belong to any clubs o r organizations such as presybeterian groups, unions, fraternal or athletic groups, or [...] and heating? Not hard at all 10/08/2023 [facility] [place] of Occupat ional Health - Occupational Stress [...] any time in the past 12 m [facility], were you homeless or living in a nursing home (including now)? No 10/08/2023 Depression Answer Date [...] 4:51 AM 12/16/2023 9:44 PM Care Teams Bow Tacker Relationship Specialty Start Date End Date None, Provider, PCP - General 05/19/21
[2024-08-08 09:18] VITALS: BP 136/100; PULSE 71; RESP 20; TEMP 37.4; O2SAT 99
--- NOTE | 2024-08-08 09:22 | PC.NURSE ---
3771 PT TOOK NORCO RIGHT BEFORE LEAVING SO SHE COULD DRIVE HOME PER DR SPENCER
== END 2024-08-08 09:24 | disposition home or self-care (01) ==
PROVIDERS: Emergency Provider Internal Medicine Critical Care Medicine; PCP Family Medicine
DX: K04.7 Periapical abscess without sinus (principal)
CPT/HCPCS: 96365; 99284; A9270; J2543

== ENCOUNTER 2024-08-20 13:22 | Outpatient (CLI) | payer OTHER, SELFPAY | END 2024-08-20 13:23 | disposition home or self-care (01) | LOC: ANHLAB 13:23 | PROVIDERS: PCP Family Medicine; Visit Provider Anesthesiology | DX: Z01.818 Encounter for other preprocedural examination (principal); N92.0 Excessive and frequent menstruation with regular cycle | CPT/HCPCS: 36415; 86850; 86900; 86901 ==

== ENCOUNTER 2024-08-24 00:38 | Day surgery (SDC) | payer OTHER, SELFPAY ==
--- NOTE | 2024-08-11 16:25 | PC.NURSE ---
Report to the Outpatient Waiting Room, entrance under the green pavilion located off [facility], at time _0600__ on date 08/24/24__. Planned Procedure Time: 0730_.? Time changes happen often and if your time is changed the preop area will call you the afternoon before. - You and your visitor will be asked to self-screen and do not enter if you have any COVID symptoms. Please call surgeon if you need to reschedule. - A mask is optional within the hospital at this time. Patients may have clear liquids (water, carbonated beverages, clear teas, apple juice) until 3 hours prior to surgery with a maximum of 20 ounces. - No food from midnight until time of surgery and no smoking, or chewing tobacco (or any form of nicotine). No chewing gum, candy or mints. - Infants may have breast milk until 4 hours before surgery, infant formula 6 hours prior to surgery. - Children will be allowed to drink immediately following surgery.? If applicable, please bring a bottle or sippy cup to assist with drinking. Juice, water, soda, and popsicles are readily available.? For infants on formula, please bring formula the day of surgery.? Pacifiers are allowed. Take only the following medications with a SIP of water on the morning of surgery: ____NONE DO NOT STOP ANY OF YOUR OTHER PRESCRIPTION MEDICATIONS PRIOR TO SURGERY EXCEPT THE FOLLOWING Hold all vitamins and supplements for 3 days per anesthesiologist. Medications to discontinue per physician IBUPROFEN Date to take last dose___08/21/24 Please no make-up, nail belarusian, hairspray, perfume, deodorant, or body powder the day of surgery.? No jewelry (including any body piercings) or valuables the day of surgery, leave them at home.? Please take a shower or bath the night before, or the morning of, surgery with an antibacterial soap.? Wear comfortable, loose fitting clothing.? Children are encouraged to wear pajamas. - Jewelry must be removed prior to entering the operating room.? Rings and piercings that are not removed may be cut off. - The hospital will not accept responsibility for valuables.? - Please leave all valuables, including medications, at home the day of surgery. If you are going home after surgery, a licensed interstate bus driver must drive you home.? - NO public transportation without another adult if you receive anesthesia. - We recommend that an adult stay with you for 24 hours following discharge. - We also recommend that you do not drive, make important decision, drink alcoholic beverages, or take any drugs that were not prescribed by your health care provider for at least 24 hours after your discharge time. For Pediatric surgeries, we recommend two adults accompany the child home. Follow any additional instructions given to you from your surgeon. Telephone instructions given to PATIENT_and asked if any additional questions and then verbalized understanding. Patient advised to call surgeon office or pre surgery nurse liaison [phone] if any additional questions.
[2024-08-24] VITALS (10 sets, daily range): BP systolic 113–133; BP diastolic 66–89; PULSE 67–111; RESP 12–18; TEMP 36.6–37.4; O2SAT 96–100; BMI 34.3
--- OUTSIDE RECORDS SUMMARY | 2024-08-24 00:41 | XMS_ITS | Clinical Summary ---
Author Organization [facility] Address [facility] [place] [address] Care Team Providers Care Conversion Worker Name Role Phone Cristhian Torres DO Primary Care Provider [phone] Allergies No known active allergies Medications amoxicillin-clavul anate (AUGMENTIN) 875-125 MG tablet Take 1 tablet (875 mg total) by mouth 2 (two) times daily. Active ondansetron (ZOFRAN-ODT) 4 MG disintegrating tablet Take 1 tablet (4 mg total) by mouth every 8 (eight) hours as needed for Nausea. 025 Discontinued vitamin w/ iron-folic acid ( PLUS) 29-1 MG Tab tablet Take 1 tablet by mouth daily. 025 Discontinued ferrous sulfate EC 324 (65 Fe) MG tablet Take 1 tablet (324 mg total) by mouth 2 (two) times daily with meals. 025 Discontinued senna-docusate (SENOKOT-S) 8.6-50 MG tablet Take 1 tablet by mouth 2 (two) times daily. 60 tablet 12/19/19 24 025 Discontinued dexamethasone (DECADRON) 4 MG tablet Take 1 tablet (4 mg total) by mouth 2 (two) times daily with meals for 2 days. 4 tablet 08/09/19 25 025 chlorhexidine (PERIDEX) 0.12 % solution Use as directed 15 mLs in the mouth or throat 2 (two) times daily for 14 days. 120 mL 08/09/19 25 025 Active Problems Problem Noted Date Diagnosed Date Sepsis (CMS/HCC [facility]) 08/08/2024 Non-reassuring electronic fe hollis monitoring tracing ([facility]) 12/16/2023 NST (non-stress test) nonreactive 12/15/2023 Encounters Date Type Department Care Team Description 08/08/2024 8:30 PM [facility] - 08/09/2024 12:26 PM [facility] Emergency [facility] [address] [place] [address] Raffy Gold MD Naveed, Muhammad Ali, MD Mardani, Fareed, MD Facial Swelling Discharge Disposition: Home or Self Care (Routine Discharge) 08/08/2024 9:54 AM [facility] - 08/08/2024 10:25 AM [facility] Emergency [facility] [address] [place] [address] Mark Nino DO Facial Swelling Discharge Disposition: Home or Self Care (Routine Discharge) 08/08/2024 Travel from Last 3 Months Social History Tobacco Use Types Packs/Day Years [...] from your doctor or pharmacy? Never 10/08/2023 [facility] Utilities Answer Date Recorded In the past 12 months has [facility] [employer], gas, oil, or water [employer] threatened to shut off services in your home? No 08/09/2024 Humiliation, Afraid, Rape, and Kick questionnair e Answer Date Recorded Within the last year, have y ou been afraid of your partner or ex-partner? No 08/09/2024 Within the last year, have y ou been humiliated or emotionally abused in other ways by your partner or ex-partner? No Within the last year, have y ou been kicked, hit, slapped, or otherwise physically hurt by your partner or ex-partner? No 08/09/2024 Within the last year, have y ou been raped or forced to have any kind of sexual activity by your partner or ex-partner? No 08/09/2024 Social Connection and Isolat ion Panel [NHANES] Answer Date Recorded In a typical week, how many times do you talk on the phone with family, friends, or neighbors? More than three times a week 10/08/2023 How often do you get togethe r with friends or relatives? More than three times a week 10/08/2023 How often do you attend chur ch or pentecostal services? Never 10/08/2023 Do you belong to any clubs o r organizations such as baptist groups, unions, fraternal or athletic groups, or [...] care, and heating? Not hard at all 08/09/2024 [facility] - Occupational Stress [...] the money to buy more. Never true 08/09/19 25 Within the past 12 months, t he food you bought just didn't last and you didn't have money to get more. Never true 08/09/2024 PRAPARE - Transportation Answer Date Re corded In the past 12 months, has l ack of transportation kept you from medical appointments or from getting medications? No 07/24 In the past 12 months, has l ack of transportation kept you from meetings, work, or from getting things needed for daily living? No 08/09/2024 Housing Stability Vital Sign Answer Solo e Recorded In the last 12 months, was t here a time when you were not able to pay the mortgage or rent on time? No 08/09/2024 In the past 12 months, how m any times have you moved where you were living? 1 08/09/2024 At any time in the past 12 m [facility], were you homeless or living in a correction (including now)? No 08/09/2024 Depression Answer Date Recor ded Last EPDS [...] Sign Reading Time Taken Comments Blood Pressure 129/85 08/09/2024 8:47 AM [facility] Pulse 93 08/09/2024 8:47 AM [facility] Temperature 36.4 C (97.5 F) 08/09/2024 8:47 AM [facility] Respiratory Rate 18 08/09/2024 2:10 AM [facility] Oxygen Saturation 100% 08/09/2024 8:47 AM [facility] Inhaled Oxygen Concentration - - Weight 88.5 kg (195 lb) 08/09/2024 1:00 AM [facility] Height 157.5 cm (5' 2 ) 08/09/2024 1:00 AM [facility] Body Mass Index 35.67 08/09/2024 1:00 AM [facility] Plan of Treatment Health Maintenance Due Date [...] Tdap) 01/18/2020 09/15/2002, 05/05/2002, 2001 COVID-19 Vaccine (1 - 2023-2 5 season) 2024 Influenza Adult (#1) 2024 [...] Procedure Name Priority Date/Time Associated Diagnosis Comments C-REACTIVE PROTEIN STAT 08/09/2024 8: 18 AM [facility] BASIC METABOLIC PANEL STAT 08/09/2024 8:18 AM [facility] CBC W/DIFF AUTOMATED STAT 08/09/2024 8:[address] SOFT TISSUE NECK W CON STAT 08/08/2024 9:28 PM [facility] C-REACTIVE PROTEIN STAT 08/08/2024 8: 56 PM [facility] CBC W/DIFF AUTOMATED STAT 08/08/2024 8:56 PM [facility] HEPATITIS C ANTIBODY Routine 11/13/2023 from Last 3 Months or Most Recently Relevant to Health Maintenance Results * (ABNORMAL) BASIC METABOLIC PANEL (08/09/2024 8:18 AM [facility]) SODIUM S/P/B 137 136 - 145 MMOL/L 08/09/2024 8:53 AM [facility] POTASSIUM S/P/B 4.2 3.5 - 5.1 MMOL/L 08/09/2024 8:53 AM [facility] CHLORIDE S/P/B 108 97 - 115 MMOL/L 08/09/2024 8:53 AM [facility] CO2 23.9 21.0 - 32.0 MMOL/L 08/09/2024 8:53 AM [facility] GLUCOSE 171(H) 74 - 106 MG/DL 08/09/2024 8:53 AM [facility] BUN 7 7 - 18 MG/DL 08/09/2024 8:53 AM [facility] CREATININE S/P/B 0.54(L) 0.55 - 1.02 MG/DL 08/09/2024 8:53 AM [facility] CALCIUM S/P/B 9.5 8.5 - 10.1 MG/DL 08/09/2024 8:53 AM [facility] ANION GAP 5.1 2.0 - 10.0 MMOL/L 08/09/2024 8:53 AM [facility] OSMOLALITY (CALC) 286 MOSM/KG 025 8:53 AM [facility] Comment:REFERENCE RANGE NOT ESTABLISHED GFR ESTIMATE >90 >90 ML/MIN/1. 73 M2 08/09/2024 8:53 AM [facility] GFR NOTES GFR REFERENCE S: 08/09/2024 8:53 AM [facility] Comment: THE ESTIMATED GFR IS CALCULATED USING THE 2020 CKD-EPI EQUATION. THE FOLLOWING CATEGORIES FOR GRADING RENAL FUNCTION ARE RECOMMENDED BY THE INTERNATIONAL SOCIETY OF NEPHROLOGY (KDIGO 2012 CLINICAL PRACTICE GUIDELINE). G1,NORMAL OR HIGH: >89 ml/min/1.73 m2 G2,MILDLY DECREASED: 60-89 ml/min/1.73 m2 G3A,MILDLY TO MODERATELY DECREASED: 45-59 ml/min/1.73 m2 G3B,MODERATELY TO SEVERELY DECREASED: 30-44 ml/min/1.73 m2 G4,SEVERELY DECREASED: 15-29 ml/min/1.73 m2 G5,KIDNEY FAILURE: <15 ml/min/1.73 m2 08/09/2024 8:18 AM [facility] Katia Mina MD LABORATORY Final Res ult Performing Organization Address [facility] Co de Phone Number [facility] [address] [place] [address], [id number] * (ABNORMAL) C-REACTIVE PROTEIN (08/09/2024 8:18 AM [facility]) Only the most recent of2 resultswithin the time period is included. C-REACTIVE PROTEIN 8.18(H) <0.80 mg/dL 08/09/2024 9:02 AM [facility] 08/09/2024 8:18 AM [facility] Nenita Price MD LABORATORY Final Result Performing Organization Address [facility] Co de Phone Number [facility] [address] [place] [address], [phone] * (ABNORMAL) CBC W/DIFF AUTOMATED (08/09/2024 8:18 AM [facility]) Only the most recent of2 resultswithin the time period is included. WBC 8.85 4.00 - 10.80 x10'3/uL 08/09/2024 8:24 AM [facility] RBC 5.14 4.10 - 5.40 x10'6/uL 08/09/2024 8:24 AM [facility] HGB 12.0 12.0 - 16.0 G/DL 08/09/2024 8:24 AM [facility] HCT 39.6 36.0 - 47.0 % 08/09/2024 8:24 AM [facility] MCV 77.0(L) 78.0 - 100.0 FL 08/09/2024 8:24 AM [facility] MCH 23.3(L) 27.0 - 31.0 PG 08/09/2024 8:24 AM [facility] MCHC 30.3(L) 33.0 - 36.0 G/DL 08/09/2024 8:24 AM [facility] RDW 15.2(H) 11.5 - 14.5 % 08/09/2024 8:24 AM [facility] PLT 441(H) 150 - 350 x10'3/uL 08/09/2024 8:24 AM [facility] MPV 9.0 7.4 - 10.4 FL 08/09/2024 8:24 AM [facility] DIFFERENTIAL TYPE AUTOMATED DIFFERENTIAL 08/09/2024 8:24 AM [facility] SEG NEUTROPHILS 89.1 % 8:24 AM [facility] LYMPHOCYTES 7.9 % 08/09/2024 8:24 AM [facility] MONOCYTES 2.6 % 08/09/2024 8:24 AM [facility] EOSINOPHILS 0.0 % 08/09/2024 8:24 AM [facility] BASOPHILS 0.1 % 08/09/2024 8:24 AM [facility] IMMATURE GRANS % 0.3 % 08/09/19 8:24 AM [facility] ABS. NEUTROPHILS 7.88 1.60 - 8.30 x10'3/uL 08/09/2024 8:24 AM [facility] ABS. LYMPHOCYTES 0.70(L) 0.80 - 4.70 x10'3/uL 08/09/2024 8:24 AM [facility] ABS. MONOCYTES 0.23 0.00 - 1.50 x10'3/uL 08/09/2024 8:24 AM [facility] ABS. EOSINOPHILS 0.00 0.00 - 0.40 x10'3/uL 08/09/2024 8:24 AM [facility] ABS. BASOPHILS 0.01 0.00 - 0.20 x10'3/uL 08/09/2024 8:24 AM [facility] ABS. IMMATURE GRANULOCYTES 0.03 0.00 - 0.03 x10'3/uL 08/09/2024 8:24 AM [facility] ABS. NUCLEATED RBC'S 0.00 0.00 - 0.01 x10'3/uL 08/09/2024 8:24 AM [facility] NRBC % 0.0 % 08/09/2024 8:24 AM [facility] 08/09/2024 8:18 AM [facility] Katia Mina MD LABORATORY Final Res ult [facility] [address] [place] [address], [phone] * CT SOFT TISSUE NECK W CON (08/08/2024 9:28 PM [facility]) Anatomical Region Laterality Modality Neck Computed Tomogra phy 08/08/2024 10:0 1 PM [facility] Impressions 08/08/2024 10:07 PM [facility] IMPRESSION: ===== 1. Periodontal abscesses about teeth numbers 11 and 12 at the epicenter of left- sided facial inflammatory changes. No convincing sizable drainable fluid collection appreciated. 2. Prominent left maxillary mucosal sinus disease. 3. Reactive lymphadenopathy in the left neck. Referred By: Interpreted By: Eliud Macias MD, 08/08/2024 10:01 PM Narrative 08/08/2024 10:07 PM [facility] [address] [place], [place] [address] EXAMINATION: CT soft tissue neck with contrast EXAM DATE/TIME: 08/08/2024 9:18 PM REASON FOR EXAM: odntogenic abscess, facial abscess Left facial swelling, facial abscess. COMPARISON: None TECHNIQUE: Axial CT images of the soft tissues of the neck are performed before and after uneventful intravenous administration of 80 cc Isovue-370. Subsequent coronal and sagittal reformatted sequences are created for evaluation. A dose lowering technique was used for this procedure, which may include, but is not limited to, dose reduction technique, automated exposure control, iterative reconstruction, ALARA (As Low As Reasonably Achievable), or Image Gently techniques. FINDINGS: Periodontal abscesses about teeth numbers this is at the epicenter of left-sided facial inflammatory changes. Subcutaneous stranding extends superiorly to the orbital rim, medially to the maxillary nasal prominence, and inferiorly to mandible. Prominent level 1 and level 2 lymph nodes are likely reactive. Dental amalgam artifact limits evaluation of soft tissues immediately adjacent to the maxilla and mandible. No convincing sizable drainage fluid collection appreciated. Limited evaluation of intracranial contents unremarkable. The globes are symmetric in size and appropriately located. No lens displacement. Retrobulbar fat is clean bilaterally. Prominent left maxillary mucosal sinus disease. Remainder paranasal sinuses and mastoid air cells are clear. The included skull base is intact. Cervical vertebral body heights and alignment are preserved. The mandible is intact. No acute facial bone fracture appreciated. Mastoid air cells are clear. Parotid, submandibular glands, and thyroid glands are unremarkable. Left aortic arch. No superior mediastinal lymphadenopathy. Breathing motion artifact with grossly clear lung apices. Parapharyngeal fat pads nondisplaced. ===== Procedure Note Eliud Macias MD - 08/08/2024 [facility] [address] [place], [place] [address] EXAMINATION: CT soft tissue neck with contrast EXAM DATE/TIME: 08/08/2024 9:18 PM REASON FOR EXAM: odntogenic abscess, facial abscess Left facial swelling, facial abscess. COMPARISON: None TECHNIQUE: Axial CT images of the soft tissues of the neck are performedbefore and after uneventful intravenous administration of 80 ccIsovue-370. Subsequent coronal and sagittal reformatted sequences arecreated for evaluation. A dose lowering technique was used for thisprocedure, which may include, but is not limited to, dose reductiontechnique, automated exposure control, iterative reconstruction, ALARA (AsLow As Reasonably Achievable), or Image Gently techniques. FINDINGS: Periodontal abscesses about teeth numbers this is at theepicenter of left-sided facial inflammatory changes. Subcutaneousstranding extends superiorly to the orbital rim, medially to the maxillarynasal prominence, and inferiorly to mandible. Prominent level 1 and level2 lymph nodes are likely reactive. Dental amalgam artifact limitsevaluation of soft tissues immediately adjacent to the maxilla andmandible. No convincing sizable drainage fluid collection appreciated. Limited evaluation of intracranial contents unremarkable. The globes aresymmetric in size and appropriately located. No lens displacement.Retrobulbar fat is clean bilaterally. Prominent left maxillary mucosalsinus disease. Remainder paranasal sinuses and mastoid air cells areclear. The included skull base is intact. Cervical vertebral bodyheights and alignment are preserved. The mandible is intact. No acutefacial bone fracture appreciated. Mastoid air cells are clear. Parotid,submandibular glands, and thyroid glands are unremarkable. Left aorticarch. No superior mediastinal lymphadenopathy. Breathing motion artifactwith grossly clear lung apices. Parapharyngeal fat pads nondisplaced. ===== IMPRESSION: ===== 1. Periodontal abscesses about teeth numbers 11 and 12 at the epicenterof left- sided facial inflammatory changes. No convincing sizable drainablefluid collection appreciated. 2. Prominent left maxillary mucosal sinus disease. 3. Reactive lymphadenopathy in the left neck. Referred By: Interpreted By: Eliud Macias MD, 08/08/2024 10:01 PM us Shital Meyer MD CT Final Resu lt * HEPATITIS C ANTIBODY (11/13/2023) HEPATITIS C AB NON-REACTI VE us Default History Genericprovider LABORATORY Final Result from Last 3 Months or Most Recently Relevant to Health Maintenance Insurance [employer] Advance Directives * Full Code (Latest Code Status on File) Date Activated Date Inactivated Comments 08/08/2024 11:26 PM 08/09/2024 2:32 PM * Full Code Date Activated Date Inactivated Comments 12/16/2023 9:44 PM 12/19/2023 6:19 PM * Full Code Date Activated Date Inactivated Comments 12/16/2023 4:51 AM 12/16/2023 9:44 PM Care Teams Conversion Worker Relationship Specialty Start Date End Date Cristhian Torres DO [address] [place] [address] PCP - General FAMILY PRACTICE 08/08/24
--- OUTSIDE RECORDS SUMMARY | 2024-08-24 00:41 | XMS_ITS | Encounter Summary ---
Author Organization [facility] Address [facility] [place] [address] Care Team Providers Care Arc Furnace Operator Name Role Phone None, Provider Primary Care Provider Cristhian Beltran DO Primary Care Provider [phone] Encounter Details Date Type Department Care Team (Late st Contact Info) Description 2001 Abstract [facility] CONVERSION [address] [place] [address] , Generic Conversion, Social History Tobacco Use [...] on filedocumented in this encounter Care Teams Arc Furnace Operator Relationship Specialty Start Date End Date None, Provider, PCP - General 05/19/21 08/07/24 Cristhian Torres DO [address] [place] [address] PCP - General FAMILY PRACTICE 08/08/24 documented as of this encounter
--- OUTSIDE RECORDS SUMMARY | 2024-08-24 00:41 | XMS_ITS | Data Portability ---
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 Name Role Phone [facility] Primary Care Provider [phone] Assessment Encounter Date Assessment Date Assessment LastModified [...] Organization Details Last Modified Time Details Appointments Robotic TLH 2024 07:30A Sarah GHOSH MD Not available Not available Not available SURG POST OP 2024 10:30A Sarah GHOSH MD Not available Not available Not available Lab unlisted lab - 17-oh progester one, lc/MS/MS 2023 [facility] (Lab), [address], [place], [address], 05/16/2024 20:43:14 dhea-sulf ate, serum 2023 024 [facility] (Lab), [address] [place], [address], 05/16/2024 20:43:10 hormone panel, serum or plasma 2023 [facility] (Lab), [address] , [place], [address], 05/16/2024 20:43:12 HbA1c (hemoglob in A1c), blood 2023 [facility] (Lab), [address], [place], [address], 05/16/2024 20:43:13 progester one, serum 2023 [facility] (Lab), [address], [place], [address], 05/16/2024 20:43:11 prolactin , serum 2023 [facility] (Lab), [address], [place], [address], 05/16/2024 20:43:11 shbg (sex hormone-b inding globulin) , serum 2023 024 [facility] (Lab), [address], [place], [address], 05/16/2024 20:43:13 testoster one free/test osterone total, ratio, serum 2023 024 [facility] (Lab), [address], [place], [address], 05/16/2024 20:43:14 TSH, serum or plasma 2023 024 [facility] (Lab), [address] [place], [address], 05/16/2024 20:43:12 Referral None recorded. Procedures None recorded. Surgeries total hysterect akhil, laparosco pic, with bilateral salpingec cydney (SURG) 2023 024 [id number], [address], [place], [address], 07/06/2024 16:45:40 Imaging US, pelvis 2023 024 [email or web address] [place], [address], [place], [address], 05/11/2024 19:54:30 US, transvagi nal 2023 024 [email or web address] [place], [address], [place], [address], 05/11/2024 19:54:30 US, pelvis, complete 2023 024 [email or web address] [address] [place], [address], [place], [address], 07/20/2024 11:16:35 Medication Orders Loestrin Fe 1.5/30 (28-Day) 1.5 mg-30 mcg (21)/75 mg (7) tablet 2023 024 [facility] #[id number], [address] [place], [address], 05/07/2024 14:28:11 Patient TargetsNo targets recorded. Patient InstructionsNo instructions recorded. Reason for Referral None Reported. Results Created Date Observation Date Name Description Value Unit Range Abnormal Flag Note LastModifiedBy Organization Detail LastModifiedTime 05/07/2005/07/2024 DHEA SULFA TE DHEA-sulfate 202 ug/dL Femal e Range s Age(y ) Range (ug/d L) 10-15 34-28 0 15-20 65-36 8 20-25 148-4 07 25-35 99-34 0 35-45 61-33 7 45-55 35-25 6 55-65 19-20 5 65-75 9-246 > 75 12-15 4 Not Available [facility] (Lab) [address], [place], [address], 05/16/2024 20:43:10 05/07/20 24 05/07/2024 PROGE STERO NE progesterone 0.15 NG/mL This assay was perfo rmed using [employer] ratio n reage nts and test kits. Value s obtai talya with other assay metho ds or kits canno t be used inter [facility] . Femal e Proge stero ne Range s: Folli cular phase 0.06- 0.89 ng/mL Ovula tion phase 0.12- 12.00 ng/mL Lutea l phase 1.83- 23.90 ng/mL Postm enopa usal <0.05 -0.13 ng/mL Healt hy Pregn ant Women 1st Trime ster 11.0- 44.30 2nd Trime ster 25.40 -83.3 0 3rd Trime ster 58.70 -214. 00 Not Available [facility] (Lab) [address] [facility], [place], [address], 05/16/2024 20:43:11 05/07/20 24 05/07/2024 PROLA CTIN prolactin, total 12.10 NG/mL 4.79-2 3.30 This assay was perfo rmed using [employer] reage nts and test kits. Value s obtai talay with other assay metho ds or kits canno t be used inter [facility] . Not Available [facility] (Lab) [address] [place], [address], 05/16/2024 20:43:11 05/07/20 24 05/07/2024 FSH, LH, ESTRA DIOL estradiol 232.0 pg/mL This assay was perfo rmed using [employer] reage nts and test kits. Value s obtai talya with other assay metho ds or kits canno t be used inter [facility] . Femal e Estra diol Range s: Folli cular phase 12.4- 233 pg/mL Ovula tion phase 41.0- 398 pg/mL Lutea l phase 22.3- 341 pg/mL Postm enopa usal <5-13 8 pg/mL Healt hy Pregn ant Women 1st Trime ster 154-3 243 pg/mL 2nd Trime ster 1561- 88954 pg/mL 3rd Trime ster 8525- >3000 0 pg/mL Not Available [facility] (Lab) [address] [facility], [place], [address], 05/16/2024 20:43:12 05/07/20 24 05/07/2024 FSH, LH, ESTRA DIOL FSH 2.1 mIU/m L This assay was perfo rmed using [employer] reage nts and test kits. Value s obtai talya with other assay metho ds or kits canno t be used inter [facility] . Femal es Folli cular : 3.5-1 2.5 mIU/m L Ovula tion: 4.7-2 1.5 mIU/m L Lutea l: 1.7-7 .7 mIU/m L Postm enopa use: 25.8- 134.8 mIU/m L Not Available [facility] (Lab) [address] [facility], [place], [address], 05/16/2024 20:43:12 05/07/20 24 05/07/2024 FSH, LH, ESTRA DIOL LH 1.8 mIU/m L This assay was perfo rmed using [employer] n reage nts and test kits. Value s obtai talya with other assay metho ds or kits canno t be used inter ma eably . Femal es Mid-F ollic ular: 2.4-1 2.6 mIU/m L Mid-C ycle: 14.0- 95.6 mIU/m L Mid-L uteal : 1.0-1 1.4 mIU/m L Postm enopa use: 7.7-5 8.5 mIU/m L Not Available [facility] (Lab) [address] [place], [address], 05/16/2024 20:43:12 05/07/20 24 05/07/2024 TSH, REFLE X FREE T4 TSH 1.91 uIU/m L 0.30-5 .33 Not Available [facility] (Lab) [address] [facility], [place], [address], 05/16/2024 20:43:12 05/07/20 24 05/07/2024 HUMAN SEX HORMO NE CHARO NG GLOBU LILIANE sex hormone binding globulin 53.0 nmole s/L 18.2-1 35.5 Not Available [facility] (Lab) [address] [facility], [place], [address], 05/16/2024 20:43:13 05/07/20 24 05/07/2024 HEMOG LOBIN [...] <7.0% Goal of thera py >8.0% Actio tyson box Not Available [facility] (Lab) [address] [facility], [place], [address], 05/16/2024 20:43:13 05/07/20 24 05/07/2024 TESTO STERO NE, FREE( DIALY SIS) AND TOTAL (LC/M S/MS) testosterone , total 21 NG/dL 2-45 For addit ional infor mar tejada e refer to http: //[facility] candelaria mehta.que stdia gnost ics.c om/fa q/ Total Testo stero neLCM SMSFA Q165 (This link is being provi ded for infor fernanda donahue/ educa josiane l purpo ses only. ) This test was devel oped and its omega tical perfo rmanc e atif cteri stics have been deter mined by [facility] Ortizi AKUA Zhang. It has not been clear ed or appro sarai by the U.S. Food and Drug Admin istra tion. This assay has been valid ated pursu ant to the CLIA regul ation s and is used for clini savita purpo ses. Not Available [facility] (Lab) [address] [facility], [place], [address], 05/16/2024 20:43:14 05/07/20 24 05/07/2024 TESTO STERO NE, FREE( DIALY SIS) AND TOTAL (LC/M S/MS) testosterone , free 2.2 pg/mL 0.1-6. 4 This test was marlyel ailin and its omega tical perfo rmanc e atif cteri stics have been deter mined by Kamilah Reynoso [place], [place]. It has not been clear ed or appro sarai by the U.S. Food and Drug Admin istra tion. This assay has been valid ated pursu ant to the CLIA regul ation s and is used for clini savita purpo ses. Perfo rming Organ izati on Infor matio n: Site ID: [id number] Name: Kamilah Reynsoo [facility] Addre ss: [id number] [place], [place] Direc tor: Andres Toro MD PhD Not Available [facility] (Lab) [address] [facility], [place], [address], 05/16/2024 20:43:14 05/07/20 24 05/07/2024 17-OH PROGE [...] This test was devel oped and its oemga tical perfo rmanc e atif cteri stics have been deter mined by [facility]. It has not been clear ed or appro sarai by FDA. This assay has been valid ated pursu ant to the CLIA regul ation s and is used for clini savita purpo ses. Perfo rming Organ izati on Infor matio n: Site ID: EZ Name: [facility]/Rell [facility]ols [facility] Jorge Rae tranraquel , Addre ss: [id number] [address] [place] [address] Direc tor: Lili alonzo MD,Ph D,MAGDALENE Not Available [facility] (Lab) [address] [facility], [place], [address], 05/16/2024 20:43:14 05/11/20 24 05/11/2024 US, pelvi s No observ ation record ed. [email or web address] [place] [address], [place], [address], 05/11/2024 15:25:42 05/11/20 24 05/11/2024 US, trans vagin al No observ ation record ed. [email or web address] [place] [address], [place], [address], 05/11/2024 15:25:50 05/11/20 24 05/11/2024 US, pelvi s No observ ation record ed. [email or web address], [place], [address], 05/11/2024 20:09:49 Result Notes None recorded. Problems Name Problem SNOMED Code Status Onset Date Resolution Date Notes Provider Name and Address Organization Details Recorded Time Pregnanc y 99303375 Completed 202203/14/2023 Tiburcio Carter [place], [place] - [facility] 3 14:51:52 Infectio n by Bambi noelle [id number] Completed ANDREW 08/27, retest 3rd trimester Tiburcio Carter [facility], [facility] 3 14:51:46 Electron ic jessy e user [id number] Completed encourage d cessation [facility], [facility] 3 14:51:46 Marijuan a user [id number] Completed encourage d cessation [facility], [facility] 3 14:51:46 Large for gestatio n age fetus Completed FOB was 10-15 at at 34w. 91% and 99% AC at 36w Tiburcio Carter [facility], [facility] 3 14:51:46 Anemia 300601662 Completed 2022 1 tab slowfe daily Tiburcio Carter [facility], [facility] 3 14:51:46 Anemia of pregnanc y 95876283 Completed [address] [facility] 3 14:51:46 Anemia of pregnanc y 65057433 Active [address] [facility] 3 14:51:46 Anemia 885603816 Active 2022 1 tab slowfe daily Tiburcio Nicholsle null, [facility] 3 14:51:46 Large for gestatio n age fetus Active FOB was 10-15 at at 34w. 91% and 99% AC at 36w Tiburcio Nicholsle null, [facility] 3 14:51:46 Problem Notes None recorded. Procedures Surgical History Date Name Laterality Status Provider Name and Address Organization Details Recorded Time 4 Caesarean Section completed Milady Bills [facility] 05/07/2024 14:19:59 3 Date of Last Pap Smear completed Meghan Zayas [facility] 07/25/2022 13:02:52 9 Oral surgery procedure completed Meghan Zayas [facility] 07/25/2022 13:04:32 Dilation and Curettage completed Milady Bills [facility] 05/07/2024 14:19:59 Imaging Results Imaging Date Name Status LastModified by Organization Details LastModified Time 05/11/2024 US, pelvis completed [email or web address] [place] [address], [place], [address], 05/11/2024 15:25:42 05/11/2024 [email or web address] [address], [place], [address], 05/11/2024 15:25:50 05/11/2024 US, pelvis completed [email or web address], [place], [address], 05/11/2024 20:09:49 Procedure Notes None recorded. Medical [...] 15 mg tablet 15 MG ORALLY DAILY 08/16 completed Not Available Not Available Not Available clindamycin HCl 150 mg capsule TAKE [...] completed Not Available Not Available Not Available dexamethaso ne 4 mg tablet TAKE 1 TABLET (4 MG TOTAL) BY MOUTH 2 (TWO) TIMES DAILY WITH MEALS FOR 2 DAYS. 08/16 completed Not Available Not Available Not Available [...] Available Not Available Not Available amoxicillin 500 mg-potassiu m clavulanate 125 mg tablet TAKE 1 TABLET BY MOUTH 3 TIMES A DAY 08/16 completed Not Available Not Available Not Available chlorhexidi ne gluconate 0.12 % mouthwash USE DIRECTED 15 ML IN THE MOUTH OR THROAT TWICE A DAY FOR 14 DAYS. SPIT DO NOT SWALLOW. 08/16 completed Not Available Not Available Not Available Serina 1.5/30 (28) 1.5 mg-30 mcg (21)/75 mg (7) tablet Take 1 tablet every day by oral route. active Not Available Not Available No t Available Vitals Date Recorded Body height Body mass index (BMI) Body weight Systolic blood pressure Diastolic blood pressure Provider Name and Address Organization Details Last Updated DateTime 05/07/2024 156.21 cm 33.5 kg/m2 74300.63 g 134 mm[Hg] 83 mm[Hg] [facility] 4 14:19:34 Date Recorded Body height Body mass index (BMI) Body weight Systolic blood pressure Diastolic blood pressure Provider Name and Address Organization Details Last Updated DateTime 05/13/2024 156.21 cm 33.5 kg/m2 11734.63 g 121 mm[Hg] 84 mm[Hg] [facility] 4 12:27:43 Date Recorded Body height Body mass index (BMI) Body weight Systolic blood pressure Diastolic blood pressure Provider Name and Address Organization Details Last Updated DateTime 05/25/2024 156.21 cm 34.2 kg/m2 49944 g 129 mm[Hg] 82 mm[Hg] [facility] 4 12:24:46 Date Recorded Body height Body mass index (BMI) Body weight Systolic blood pressure Diastolic blood pressure Provider Name and Address Organization Details Last Updated DateTime 08/16/2024 156.21 cm 34.8 kg/m2 02297.77 g 168 mm[Hg] 74 mm[Hg] [facility] 5 12:01:47 Social History Question Answer Notes LastModified by Organizat ion Details LastModified Time Tobacco Smoking Status Never Smoker Hanane Colón [facility] [place] 08/27/2022 09:51:38 What Is Your Level Of Alcohol Consumption? None [email or web address] Information not available 07/25/2022 If You Are , What Was Your Level Of Alcohol Consumption Prior To ? Occasional [email or web address] Information not available 08/27/2022 Are You Blind Or Do You Have Difficulty Seeing? No [email or web address] Information not available 07/25/2022 What Is Your Level Of Caffeine Consumption? Moderate [email or web address] Information not available 07/25/2022 How Much Tobacco Do You Chew? None [email or web address] Information not available 07/25/2022 In The 14 Days Before Symptom Onset, Have You Had Close Contact With A Laboratory-confir med COVID-19 While That Case Was Ill? No [email or web address] Information not available 07/25/2022 In The 14 Days Before Symptom Onset, Have You Had Close Contact With A Person Who Is Under Investigation For COVID-19 While That Person Was Ill? No [email or web address] Information not available 07/25/2022 Have You Been To An Area Known To Be High Risk For COVID-19? No [email or web address] Information not available 07/25/2022 Are You Deaf Or Do You Have Serious Difficulty Hearing? No [email or web address] Information not available 07/25/2022 What Type Of Diet Are You Following? REGULAR [email or web address] Information not available 07/25/2022 Do You Or Have You Ever Used E-cigarettes Or Vape? Current User Of Electronic Cigarettes [email or web address] Information not available 08/27/2022 What Is The Highest Grade Or Level Of School You Have Completed Or The Highest Degree You Have Received? [id number] Information not available 07/25/2022 What Is Your Occupation? [employer] [email or web address] Information not available 07/25/2022 Are There Any Guns Present In Your Home? No [email or web address] Information not available 07/25/2022 Do You Use Protection During Sex? No [email or web address] Information not available 07/25/2022 Do You Use Your Seat Belt Or Car Seat Routinely? Yes [email or web address] Information not available 07/25/2022 Do You Have Smoke And Carbon Monoxide Detectors In Your Home? Yes Information not available 07/25/2022 How Much Tobacco Do You Smoke? No [email or web address] Information not available 07/25/2022 Do You Feel Stressed (tense, Restless, Nervous, Or Anxious, Or Unable To Sleep At Night)? [id number] [email or web address] Information not available 07/25/2022 Do You Use Any Illicit Or Recreational Drugs? No [email or web address] Information not available 07/25/2022 Do You Use Sunscreen Routinely? No [email or web address] Information not available 07/25/2022 Has Tobacco Cessation Counseling Been Provided? No [email or web address] Information not available 08/27/2022 Have You Used IV Drugs? No [email or web address] Information not available 07/25/2022 Do You Or Have You Ever Used Any Other Forms Of Tobacco Or Nicotine? Yes Information not available 08/27/2022 Sex: Unknown Functional Status Question Answer Note LastModified by Organizat ion Details LastModified Time Do you have difficulty walking or climbing stairs? No Information not available 08/27/2022 Are you able to walk? YESWOREST [email or web address] Information not available 07/25/2022 Are you able to care for yourself? Yes [email or web address] Information not available 08/27/2022 Do you have difficulty dressing or bathing? No [email or web address] Information not available 08/27/2022 What is your exercise level? Occasional [email or web address] Information not available 07/25/2022 Mental Status None recorded. Family History Relationship Description Onset Age of this Age Resolved Age Notes LastModified by Organization Details LastModified Time Maternal Grandfather Malignant tumor of lung [email or web address] Not available 08/27 10:54:04 Maternal Grandmother Malignant tumor of lung [email or web address] Not available 08/27 10:54:04 Medical History Condition Response Allergies (Food, seasonal, environmental ) N Other N Drug/Latex Allergies/Reactions N Blood Transfusion N Breast Cancer N Dermatologic Disorders N Lung Disease N Defects or Inherited Disease N Breast Problem N Gestational Diabetes N Hematologic disorders N Anesthesia Complications N History of STI Y Deep Vein Thrombosis N Polycystic ovary syndrome N Anxiety Disorder N Autoimmune disease N Arthritis N Polyps N Infertility N Acid Reflux (GERD) N History of abnormal pap N Cancer N Varicosities N Stroke N Neurologic/Epilepsy N Endometriosis N High Cholesterol N Fibromyalgia N Headaches N Kidney Disease N Heart Problems N [...] Gynecological History Statement/Question Response Abnormal Pap N Flow Moderate Date of LMP 07/28/2024 On BCP's at Conception? N N Was last menstrual period normal N STIs/STDs Y HPV Vaccine N Duration of Flow (days) 15 Current Control Method BCPs Age at First [...] SNOMED-CT Code Diagnosis ICD10 Code Diagnosis Note [id number] Danitza Owens [place] [address],[facility] [place] [address] 07/25/2022 11:46:14 07/25/2022 13:39:14 [id number] Coral Caban [place] [address] [address] 07/25/2022 11:46:31 07/25/2022 15:13:34 Amenorrhea 65156781 N91.2 Gynecologi c examination 47857685 Z01.419 Z11.3 Z11.8 test positive 563679225 Z32.01 Risk factors addressed: Tobacco Cessation, Safe [...] cf/sma/nip t. Handouts given and discussed with patient.Ch ildbirth classes recommende d.New OB sheet given.If previous , counseling .Pt verbalizes that she understand s the importance of above instructio ns.All questions were answered.P atient reminded to have annual well woman examinatio n and address [facility] . [id number] Polina Means [place] [address],[place] [address] 08/27/2022 09:51:33 08/27/2022 12:12:37 screening 956114997 Z36.82 [id number] Verito Deleon MD [place] [address],[place] [address] 08/27/2022 10:31:01 08/27/2022 11:51:45 screening 172001140 Z36.89 Venereal d isease screening 616513701 Z11.3 Routine an tenatal care 949654830 Z34.91 [id number] Verito Deleon MD [place] [address],[place] [address] 09/23/2022 14:39:18 09/24/2022 16:13:01 Routine care 607697543 Z34.91 [id number] Danitza Owens [place] [address],[place] [address] 10/22/2022 09:53:35 10/22/2022 11:51:39 screening 813215755 Z36.3 [id number] Verito Deleon MD [place] [address],[place] [address] 10/22/2022 09:53:56 10/23/2022 10:21:43 Routine care 062323646 Z34.91 Large for gestation age fetus 909417726 O36.62X1 [id number] [facility] [address],[place] [address] 11/19/2022 11:32:33 11/19/2022 12:48:44 screening 941998085 Z36.2 [id number] Verito Deleon MD [place] [address],[place] [address] 11/19/2022 11:33:04 11/19/2022 12:48:12 Routine care 250229033 Z34.91 [id number] Yaneli Meadfloridalma [place] [address],[place] [address] 12/20/2022 08:50:17 12/20/2022 09:33:17 Uterine size for dates discrepancy 179278579 O26.849 Z3A.28 [id number] Iona [facility] [address],[place] [address] 12/20/2022 08:54:21 12/20/2022 09:53:49 Routine care 572432234 Z34.93 [id number] Verito Deleon MD [place] [address],[place] [address] 12/30/2022 10:58:10 12/30/2022 11:44:40 Routine care 047226068 Z34.91 Anemia of 2734 2003 O99.019 Nausea and vomiting 1693 1999 R11.2 [id number] Polina [facility] [address],[place] [address] 01/15/2023 09:34:45 01/15/2023 10:14:25 Large for gestation age fetus 895721005 O36.63X0 Z3A.31 [id number] Verito Deleon MD [place] [address],[place] [address] 01/15/2023 09:35:12 01/15/2023 10:28:03 Routine care 273700654 Z34.91 [id number] Danitza Owens [place] [address],[place] [address] 01/31/2023 09:45:10 01/31/2023 11:46:29 [id number] Verito Deleon MD [place] [address],[place] [address] 01/31/2023 09:45:37 01/31/2023 12:26:16 Routine care 198025107 Z34.91 [id number] [facility] [address],[place] [address] 02/12/2023 11:14:24 02/12/2023 12:37:15 Large for gestation age fetus 469916010 O36.63X0 Z3A.35 [id number] Verito Deleon MD [place] [address],[place] [address] 02/12/2023 11:14:41 02/17/2023 09:53:32 Large for gestation age fetus 321883927 O36.63X0 Z3A.35 Routine an tenatal care 533013096 Z34.91 [id number] Verito Deleon MD [place] [address],[place] [address] 02/19/2023 10:24:15 02/20/2023 22:14:51 Routine care 183829463 Z34.91 Large for gestation age fetus 328602227 O36.63X0 Z3A.35 [id number] Verito Deleon MD [place] [address],[place] [address] 02/26/2023 10:57:13 02/26/2023 14:03:26 Routine care 923925976 Z34.91 [id number] Tejas Ghosh MD [place] [address],[place] [address] 04/07/2023 10:05:02 04/08/2023 08:49:00 hemorrhage 53105613 O72.1 23-year-ol d female presents for vaginal [...] We made a decision to perform [facility]. [id number] [facility] [address],[place] [address] 04/07/2023 10:08:15 04/07/2023 10:44:18 Abnormal uterine bleeding 6727791676 9100 N93.9 [id number] Tejas Ghosh MD [place] [address],[place] [address] 04/17/2023 10:59:42 04/17/2023 12:17:16 hemorrhage 09044624 O72.1 23-year-ol d female who had some [...] ultrasound to rule out persistent retained products. [id number] Yaneli Medina [place] [address],[place] [address] 04/17/2023 12:16:10 04/17/2023 13:23:02 Abnormal uterine bleeding 0466902461 9100 N93.9 [id number] Polina Means [place] [address],[place] [address] 06/30/2023 09:32:14 06/30/2023 10:15:52 [id number] VISHAL GONCALVES MD [place] [address],[place] [address] 06/30/2023 09:33:27 06/30/2023 10:48:38 test positive 738959193 Z32.01 1. Exam today within normal limits.2. [...] by retained placenta requiring D&C 1 month [id number] Tejas Ghosh MD [place] [address] [address] 05/07/2024 13:50:49 05/10/2024 05:47:56 Abnormal uterine bleeding [id number] 9100 N93.9 [id number] Yaneli Medina [place] [address],[facility] [place] [address] 05/11/2024 11:55:57 05/11/2024 13:10:38 Abnormal uterine bleeding [id number] 9100 N93.9 [id number] Tejas Ghosh MD [place] [address],[facility] [place] [address] 05/13/2024 11:58:38 05/13/2024 14:45:18 Menorrhagia [id number] N92.0 This patient is a 24-year-ol d [...] form a treatment plan. Irregular intermenstrual bleeding [id number] N92.1 [id number] Tejas Ghosh MD [place] [address],[facility] [address] 05/25/2024 11:44:53 05/26/2024 01:42:26 Menorrhagia [id number] N92.0 this patient is a 24-year-ol d [...] minutes on the patient's care. Uterine leiomyoma [id number] D25.9 [id number] Tejas Ghosh MD [place] [address] [address] 08/16/2024 11:12:29 08/16/2024 12:44:29 Menorrhagia [id number] N92.0 this patient is a 24-year-ol d female with severe menorrhagi a, and uterine fibroids. we agreed to performed robotic hysterecto my with bilateral salpingect akhil. She understand s the risks, benefits, and alternativ es. She has completed the informed consent process and is ready to proceed. Health Concerns Section Related Observation LastModified by Organization Detai ls LastModified Time None Recorded Concern Status LastModified by Organization Details LastModified Time None Recorded Advance Directives Directive None Recorded Payers Encounter Date Sequence Insurance Name Policy Number Policy Matson Covered Member ID Matson Member ID Guarantor Name 05/07/2024 1 [facility] (MEDICAID HMO) [id number] Marita Suleman [id number] [facility] Suleman 05/11/2024 1 [facility] (MEDICAID HMO) [id number] Marita Suleman [id number] Marita Suleman 05/13/2024 1 [facility] (MEDICAID HMO) [id number] 0003 Marita Suleman [id number] Marita Suleman 05/25/2024 1 [facility] (MEDICAID HMO) [id number] [facility] Suleman [id number] Marita Suleman 08/16/2024 1 [facility] (MEDICAID HMO) [id number] [facility] Suleman [id number] [facility] [place] Notes Date Note Type Note Provider Name and Address Organization Details Recorded Time 05/07/2024 text/html 24-year-old fema le with irregularly irregular bleeding. It is heavy at times. She is 6 months post Depo-Provera shot approximately. She denies any abnormal vaginal discharge. She denies any pelvic pain she denies any dizziness, shortness of breath. Tejas Ghosh MD [address], [place], [address], [facility] 05/07/2024 21:05:15 05/13/2024 text/html This patient [...] a treatment plan. Tejas Ghosh MD [address], [place], [address], [facility] 05/13/2024 14:41:14 05/25/2024 text/html this patient [...] with bilateral salpingectomy Tejas Ghosh MD [address], [place], [address], [facility] 05/25/2024 21:57:52 08/16/2024 text/html This patient is a 24-year-old female with severe menorrhagia. We have agreed to perform robotic assisted hysterectomy with bilateral salpingectomy. The patient understands the procedure. The procedure was described to the patient in great detail. the patient also understands the risks. The risks were also explained in detail. She understands that injuries May occur during surgery. She understands these injuries can result in hospitalization, more surgery, and severe illness. She understands there is risk of hemorrhage and infection. Tejas Ghosh MD [address], [place], [address], [facility] 08/16/2024 12:41:02 OBGyn Episode Ob Episode Information Episode Created Date Number of Fetuses Patient Bloodtype Patient rh Status Prepregnancy Weight lbs Domestic Partner Domestic Partner Phone Father Name Php Lamp Developer Status 08/28/19 23 1 O Positive 124 Babar Reagan CLOSED Fetus Data First Name Last Name Admitted to NICU Weight (g) Sex Living Outcome Pediatric Complications Fetus ID Race Codes Race Delivery Type Sherman [phone] M true Full Term [id number] Vaginal Delivery Problems Problem Notes carrier screen neg Problem Name Start Date End Date Resolution Snomed Code Not e Large for gestation age fetus FOB was 10-15 a t at 34w. 91% and 99% AC at 36w Anemia of 12/30/2022 [id number] Infection by Trichomonas [id number] ANDREW 08/27, retest 3rd trimester Electronic cigarette user [id number] encouraged cess ation Marijuana user [id number] encou raged cessation Anemia 12/23/2022 MEDICATION [id number] 1 tab sl owfe daily Mika Calculation [...] Sound Latest Days Gestation 08/28/19 23 12 08/27/2022 03/13/20 23 3 Pre-ericka Flowsheet Flowsheet Date 08/27/2022 Flower Score Blood Edema Fundus Height Fundus Units Glucose Ketones Leukocytes Nitrite Labor Signs Protein Cervic Dilation Cervic Effacement Cervic Station neg none none trace Type Weight in lbs Pre/Post Dialysis Refused Weight 131.496911478517 BP Diastolic BP Location Tested BP Systolic [...] Weight in lbs Pre/Post Dialysis Refused Weight 134.644496579159 BP Diastolic BP Location Tested BP Systolic [...] Weight in lbs Pre/Post Dialysis Refused Weight 138.920213382993 BP Diastolic BP Location Tested BP Systolic [...] Weight in lbs Pre/Post Dialysis Refused Weight 144.315604687899 BP Diastolic BP Location Tested BP Systolic [...] Weight in lbs Pre/Post Dialysis Refused Weight 147.278393981982 BP Diastolic BP Location Tested BP Systolic BP Type 69 114 Fetus Heart Rate Present Fetus Movement A Yes Comments patient states that having s ome pain, cramping, discharge, nausea and vomiting. taking zofran sxs are improving, cramping better with increased hydration. GCT today, ok for tdap, efw 74% HC 98%. precautions reviewed. 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 No concerns. GBS next, will also repeat std testing then. Has not done Tdap yet. Growth US next visit. Flowsheet Date 02/12/2023 Flower Score Blood Edema [...] Weight in lbs Pre/Post Dialysis Refused Weight 157.645117272505 BP Diastolic BP Location Tested BP Systolic [...] Weight in lbs Pre/Post Dialysis Refused Weight 161.473740259732 BP Diastolic BP Location Tested BP Systolic [...] Weight in lbs Pre/Post Dialysis Refused Weight 165.641495345630 BP Diastolic BP Location Tested BP Systolic BP Type 80 138 Fetus Heart Rate Present A 135 Fetus Movement A Yes Comments Doing fine, occasional ctx. IOL next Friday at [place]. Discussed IOL. Precautions given. Menstrual History Last Menstrual Date Menses Monthly On Bcp Conception Prior Menses Frequency Hcg Plus Date Menarche Onset Age 1206/06/2022 Genetic Screening And Infection History Question Response Note Mental Retardation/Autism false Patient's Age Will Be 35 Years Or Older At Estim ated Date of Delivery false Thalassemia (Malian, Togolese, Mediterranean, Or Background): MCV < 80 false Neural Tube Defect (Meningomyelocele, Spina Bifi da, Or Anencephaly) false Congenital Heart Defect false Down Syndrome false Bryon-Sachs (eg, Pentecostalism, Cajun, [place]wana-[place]) f alse Gerardo Disease false Sickle Cell Disease Or Trait () false Hemophilia Or Other Blood Disorders false Muscular Dystrophy false Cystic Fibrosis false Boyce's Chorea false Intellectual Disability/Autism false If Yes, [...] Post Complications Tubal Sterilization Discharge Date Comments [facility] idural 38.1 Verito Deleon MD Anemia, Electroni c cigarette user, Infection by Trichomon as, Large for gestation age fetus, Marijuana user Discharge Information Feeding Method Contraceptive Method Maternal HG B and HCT Levels Ob Episode Information Episode Created Date Number of Fetuses Patient Bloodtype Patient rh Status Prepregnancy Weight lbs Domestic Partner Domestic Partner Phone Father Name Php Lamp Developer Status 05/07/20 24 1 CLOSED Fetus Data First Name Last Name Admitted to NICU Weight (g) Sex Living Outcome Pediatric Complications Fetus ID Race Codes Race Delivery Type M Prematur e [id number] Primary Mika Calculation Initial Mika Date Initial [...]
--- NOTE | 2024-08-24 06:31 | P.PNAN_ITS ---
Anes - Initial Pre Proc Eval Procedure: Operation Date: 08/24/24 07:30 Proposed Procedures p Robotic Assisted Hysterectomy with Bilateral Salpingectomy - Tejas Ghosh MD Date/Time: 08/24/24 06:31 Surgeon: Tejas Ghosh MD Pre Op Diagnosis: Menorrhagia Patient Data Age: 24 Gender: F Height: Weight: Allergies Allergy/AdvReac Type Severity Reaction Status Date / Time No Known Allergies Allergy Verified 08/11/24 16:16 Home Medications ?Medication ?Instructions ?Recorded ?Confirmed ?Type amoxicillin 500 mg-potassium 1 tablet PO TID #30 tabs 08/07/24 08/11/24 Rx clavulanate 125 mg tablet (Augmentin) ibuprofen 200 mg tablet (Advil) 200 mg PO Q6H PRN pain 08/11/24 08/11/24 History Patient hx anesthesia problems: none Family hx anesthesia problems: none Results Review: All pre-operative results and documents have been reviewed as part of the pre- operative evaluation. [facility] Past Medical History Medical History Anemia History of psychiatric hospitalization Suicide attempt by overdose Rash Surgical History Surgical History (Updated 08/24/24 @ 06:32 by Triston Gonzalez MD) History of D&C History of section H/O oral surgery Family History Family History Mother Healthy adult Father Healthy adult Grandparent Lung cancer Social History Social History Years smoked: 3 Smoking status: Never smoker Tobacco type: e-cigarettes/vaping Second hand tobacco smoke exposure: No Additional smoking assessment comments: VAPING FOR 5 YRS Alcohol intake: never Substance use: never Substance use type: does not use Do You Feel Safe in your Home?: Yes Lack of Transportation: No Lack of Food: Never True Current Housing: I Have Housing Concerned About Future Housing: No Difficulty Paying Gas/Electric Bills: No Difficulty Paying for Meds: No Currently Unemployed: No Education: High School Diploma/GED Difficulty w/ Childcare or Family Care: No Living arrangements: with family Additional living arrangements comments: with mother Occupation/Education: occupation Additional occupation/education comments: [employer] Gender identity (if verbalized by the patient): Female Spiritual care concerns: No Anes - Eval Final PreProcedure Day of Procedure 08/24/24 06:31 Patient weight: overweight Heart: regular rate and rhythm Lungs: clear to auscultation Airway: Mallampati scale class II Neurological: alert and oriented Last oral intake: >/= 8 hours ASA classification: II Emergent: no Anesthetic plan: proceed Anesthesia type and monitoring: general ETT and standard monitoring Results Review: All pre-operative results and documents have been reviewed as part of the pre- operative evaluation. Informed Consent: The patient's anesthetic plan and its attendant risks and benefits were discussed with the patient/family/POA. Questions were solicited and answers provided to the satisfaction of the patient/family/POA.
[2024-08-24 06:37] LABS: BEDSIDEPREGUCG Negative (Negative)
[2024-08-24] MEDS: LACTATED RINGERS 1,000 ML 30 ML IV CONT ×2 (06:58→09:22)
[2024-08-24] MEDS: ACETAMINOPHEN 500 MG TABLET 1000 MG PO ×3 (07:00→17:43)
[2024-08-24] MEDS: KETOROLAC 15 MG/ML VIAL (*BKC) IV PUSH (07:01)
--- NOTE | 2024-08-24 07:07 | WPDHPUPDATE1 ---
History and Physical Update Update Date/Time: 08/24/24 07:07 History and Physical has been reviewed, including an updated exam of the patient. There are NO changes in the patient's condition. Risks, benefits, and alternatives have been discussed and questions answered. Patient agrees to proceed with procedure.
[2024-08-24] MEDS: ceFAZolin 2 GM/D5W 50 ML 2 GM/50 ML BAG IVPB (07:29)
[2024-08-24] MEDS: METHYLENE BLUE 0.5% INJ 10 ML AMPULE IV PUSH (08:57)
--- NOTE | 2024-08-24 09:40 | P.OP_ITS ---
Procedure Note - Detailed Date of Procedure 08/24/24 Pre-op Diagnosis Menorrhagia Post-op Diagnosis Same Procedure Performed Robot assisted Total hysterectomy with bilateral salpingectomy. Surgeon Tejas Ghosh MD Anesthesia General Indications heavy vaginal bleeding, pelvic pain Findings normal-appearing uterus, ovaries, and left tube, right tube was partially resected. Some scarring over the posterior cul-de-sac peritoneum. Description of Procedure This patient was taken to the operating room. She was prepped and draped in the dorsal lithotomy position after induction of general anesthesia. The uterine manipulator and Chente cup were placed. This was done with a speculum and tenaculum. The speculum was placed. The cervix was grasped with a tenaculum. The stay sutures were placed at 3 and 9:00 a.m.. The stay sutures of 0 Vicryl were tied to the appropriately Size scope after it was slipped around the cervix.. The tip of the NOEMI manipulator was placed in the intrauterine cavity. The cup was slid into place around the cervix and into the fornices. It was locked into place. The sutures were then wrapped around the handle and tied under tension. A 8 mm skin incision was made in the left upper quadrant the abdomen. a 5 mm Visiport trocar was inserted into abdominal cavity and pneumoperitoneum was achieved. A 8 mm supraumbilical incision was made and a 8 mm trocar was insert ed into the intrauterine cavity under direct visualization of the scope. an 8 mm incision was made in the right upper quadrant of the abdomen and an 8 mm robotic trocar was placed the inter uterine cavity under direct visualization the scope. An 11 mm trocar was inserted in the right upper quadrant of the abdomen rectal is a cystoscope after an incision was made there as well. The robot was docked. Electronic Orientation of the robot was performed. Bilateral ureteral lysis was performed. This was done from the pelvic brim down to the uterine artery. This was done with careful dissection using sharp and blunt dissection. The fallopian tubes were removed bilaterally. The mesosalpinx around the fallopian tubes were cauterized transected with LigaSure cautery. This was done in a bilateral fashion from the ovary to the uterine cornua. The fallopian tube was transected at the uterine cornu and amputated. The tube was taken out the left lower quadrant trocar site. In a stepwise f ashion along the lateral aspects of the uterus the round ligament and broad ligaments were cauterized transected down to the level of the uterine arteries. A bladder flap was created in the bladder was moved distally to the end of the cervix and over the Chente cup. The bilateral uterine arteries were cauterized and transected. Colpotomy was then performed. In a circumferential fashion the vagina was transected using unipolar cautery. The incision was made down on the Chente cup. The uterus and cervix were taken out through the vagina. A pneumo occluder was placed in the vagina. The vaginal cuff was closed with a 0 V lock suture in a running fashion. The pelvis was irrigated with copious amounts antibiotic irrigation. The ureters were again examined and found to be intact and flowing freely under the uterine arteries into the bladder. The bladder was intact. It was examined directly. Cystoscopy was performed after administration of methylene blue. The cystoscope was inserted. Bladder was distended with fluid. The ureteric meatus was observed bilaterally. Blue fluid was seen to egress bilaterally. The bladder was drained and the cystoscope was withdrawn. The vagina was irrigated with Betadine solution after removal of the Pneumo occluder. the trocars were removed after the robot was undocked. The skin was closed with subacute or Dermabond. The patient was taken to recovery room. She was stable condition. Sponge lap and needle counts were correct x2. Estimated Blood Loss 125 Urine Output 800 Drains Yes Packing No Pathology Yes Complications No immediate complications Condition Stable Disposition Floor
[2024-08-24] MEDS: ONDANSETRON INJ 4 MG/2 ML VIAL IV PUSH (10:06)
[2024-08-24] MEDS: fentaNYL CITRATE INJ (*CRX) 100 MCG/2 ML VIAL 25 MCG IV PUSH ×2 (10:08→10:11)
[2024-08-24] MEDS: DEXTROSE 5%/0.45% SOD CHL 1,000 ML 125 ML IV CONT (11:23)
[2024-08-24] MEDS: SIMETHICONE 80 MG TAB.CHEW PO ×2 (12:02→16:25)
[2024-08-24] MEDS: KETOROLAC 30 MG/ML VIAL (*BKC) IV PUSH ×2 (12:02→17:43)
[2024-08-24] MEDS: DOCUSATE SODIUM 100 MG CAPSULE PO (16:25)
[2024-08-25] MEDS: KETOROLAC 30 MG/ML VIAL (*BKC) IV PUSH (01:02)
[2024-08-25] MEDS: ACETAMINOPHEN 500 MG TABLET 1000 MG PO ×2 (01:02→07:36)
[2024-08-25 01:09] VITALS: BP 119/70; PULSE 99; RESP 16; TEMP 37.2; O2SAT 99
[2024-08-25 04:54] VITALS: BP 125/71; PULSE 85; RESP 16; TEMP 37.1; O2SAT 99
[2024-08-25 07:35] VITALS: BP 139/70; PULSE 88; RESP 18; TEMP 37.3; O2SAT 98
[2024-08-25] MEDS: DOCUSATE SODIUM 100 MG CAPSULE PO (07:36)
[2024-08-25] MEDS: SIMETHICONE 80 MG TAB.CHEW PO (07:36)
[2024-08-25] MEDS: IBUPROFEN 600 MG TABLET PO (07:36)
--- NOTE | 2024-08-25 10:07 | PM.GYNPNOP ---
FUNDS TRANSFER CLERK - A/P Postoperative Procedures: Procedures Operation Date: 08/24/24 07:30 Actual Procedure Side Surgeon p Robotic Assisted Total Laparoscopic Hysterectomy with Bilateral Salpingectomy Bilateral Tejas Ghosh MD Postoperative day: 1 Postoperative status: doing well Postoperative plan: see orders Time Spent With Patient Time: Total time spent is greater than 50% in coordination of care (as documented) at patient's floor/unit and/or counseling patient: Time with patient: less than 15 minutes FUNDS TRANSFER CLERK- PN:Subj Post-Op Subjective Date/time seen: 08/25/24 10:07 Subjective: patient reports feeling better, patient has no complaints and pain is well controlled Exam Const: General: healthy appearing, comfortable and no acute distress Resp: Auscultation: clear to auscultation bilaterally, no rales, no rhonchi and no wheezes Cardio: Rate: regular rate Heart sounds: no click, no murmurs and no rubs GI: Inspection: non-distended Auscultation: normal bowel sounds Extrem: General: normal to inspection, no pedal edema and no calf tenderness FUNDS TRANSFER CLERK - PN: Obj Data Vital Signs Vital Signs: Vital Signs - 24 hr 08/24/24 10:20 08/24/24 10:34 08/24/24 10:45 Temperature 98.3 F Pulse Rate 67 76 72 Respiratory Rate 12 18 16 Blood Pressure 131/88 132/88 113/77 Pulse Oximetry 98 96 100 Oxygen Delivery Room Air Room Air 08/24/24 16:15 08/24/24 16:15 08/24/24 18:30 Temperature 98.9 F 99.4 F Pulse Rate 111 H 72 Respiratory Rate 18 16 Blood Pressure 115/66 122/77 Pulse Oximetry 98 100 Oxygen Delivery Room Air 08/24/24 18:30 08/25/24 01:09 08/25/24 04:54 Temperature 98.9 F 98.8 F Pulse Rate 72 99 85 Respiratory Rate 16 16 16 Blood Pressure 119/70 125/71 Pulse Oximetry 100 99 99 Oxygen Delivery Room Air 08/25/24 07:35 08/25/24 07:41 Temperature 99.1 F Pulse Rate 88 Respiratory Rate 18 Blood Pressure 139/70 Pulse Oximetry 98 Oxygen Delivery Room Air Intake/Output Intake/Output: Intake & Output 08/22/24 08/23/24 08/24/24 08/25/24 23:59 23:59 23:59 23:59 Intake Total 910 Output Total 3980 Balance -3070 Meds/Results Medications: Active Medications Generic Name Dose Route Start Last Admin Trade Name Kaydenq PRN Reason Stop Dose Admin Acetaminophen 1,000 mg 08/24/24 12:00 08/25/24 07:36 Acetaminophen 500 Mg Tablet PO 1,000 mg Q6HR YOSHI Administration Docusate Sodium 100 mg 08/24/24 17:00 08/25/24 07:36 Docusate Sodium 100 Mg Capsule PO 100 mg BID YOSHI Administration Ibuprofen 600 mg 08/25/24 06:00 08/25/24 07:36 Ibuprofen 600 Mg Tablet PO 600 mg Q6HR YOSHI Administration Naloxone HCl 0.1 mg 08/24/24 10:36 Naloxone Hcl 0.4 Mg/Ml Vial IV PUSH Q2M PRN Respiratory rate less than 10 Ondansetron HCl 4 mg 08/24/24 10:36 Ondansetron Inj 4 Mg/2 Ml Vial IV PUSH Q6H PRN Nausea And Vomiting Oxycodone HCl 5 mg 08/24/24 10:36 Oxycodone Hcl (*Crx) 5 Mg Tab Ir PO Q4H PRN Pain Rated 4-6 Oxycodone HCl 10 mg 08/24/24 10:36 Oxycodone Hcl (*Crx) 5 Mg Tab Ir PO Q6H PRN Pain Rated 7-10 Simethicone 80 mg 08/24/24 12:00 08/25/24 07:36 Simethicone 80 Mg Tab.Chew PO 80 mg TIDWM YOSHI Administration
== END 2024-08-25 10:55 | disposition home or self-care (01) ==
LOC: ANHSURGERY 05:58 → ANHOB2 11:17
PROVIDERS: PCP Family Medicine; Visit Provider Obstetrics & Gynecology
PROC: (CPT 58571; principal; 2024-08-24 07:30)
DX: N92.0 Excessive and frequent menstruation with regular cycle (principal); N87.9 Dysplasia of cervix uteri, unspecified; N88.8 Other specified noninflammatory disorders of cervix uteri; N83.8 Other noninflammatory disorders of ovary, fallopian tube and broad ligament; F17.290 Nicotine dependence, other tobacco product, uncomplicated
CPT/HCPCS: 58571; S2900; 88307; 99199; A9270; J0690; J1100; J1171; J1885; J2003; J2250; J2405; J2704; J3010; J7120; Q9968